=== PATIENT | female | born 2000 | race Caucasian/White ===

== ENCOUNTER 2020-05-08 09:46 | Emergency (ER) | payer OTHER, SELFPAY ==
[2020-05-08 09:57] VITALS: BP 105/68; PULSE 54; RESP 17; TEMP 36.7; O2SAT 100; BMI 22.8
[2020-05-08 10:27] VITALS: BP 109/63; PULSE 50
--- NOTE | 2020-05-08 10:27 | XR_ITS ---
EXAMINATION: RIGHT HAND AND WRIST X-RAY CLINICAL INFORMATION: Fall. Middle finger pain and swelling COMPARISON: None TECHNIQUE: 4 views of the right hand and wrist FINDINGS: Bone alignment is normal. No acute fracture or dislocation is seen. There is a well-corticated ossification adjacent to the ulnar styloid questionable for changes from old trauma versus accessory ossification center. The joint spaces are normal. Soft tissues are normal. XR/XR hand wrist RT IMPRESSION: No acute fracture seen.
--- NOTE | 2020-05-08 10:27 | ECG_ITS ---
Test Reason : ANXIETY Blood Pressure : / mmHG Vent. Rate : 062 BPM Atrial Rate : 062 BPM P-R Int : 130 ms QRS Dur : 084 ms QT Int : 416 ms P-R-T Axes : 064 090 075 degrees QTc Int : 422 ms Sinus rhythm with marked sinus arrhythmia Rightward axis Borderline ECG When compared with ECG of 28-JUN-2019 14:47, more variability in heartrate Referred By: Manuela Cates Electronically Signed By:ORIN CORLEY MD
--- NOTE | 2020-05-08 10:28 | ED_ITS ---
HPI - Extremity Problem General Chief complaint: Anxiety Stated complaint: hand injury Time Seen by Provider: 05/08/20 10:13 Source: patient Mode of arrival: ambulatory History of Present Illness HPI Narrative: 19-year-old female with a past medical history of anxiety presents to ED complaining of right hand / wrist pain S/P witnessed syncopal episode last night. Patient reports increased anxiety / panic attacks, and with panic attacks has syncope about 2x a week. Admits has been dealing with issue this issue x years, but gradually been worsening . Reports has been worked up multiple times in the past, unsure was underlying diagnosis is. Unknown head trauma, +LOC last night. Denies headache, vision changes, neck or back pain, CP/SOB, abdominal pain, nausea/ vomiting, numbness /tingling, incontinence/retention. MD Complaint: extremity pain and extremity swelling Related Data Allergies Allergy/AdvReac Type Severity Reaction Status Date / Time No Known Allergies Allergy Verified 05/08/20 10:00 [No Known Allergies*] Review of Systems Review of Systems: Constitutional: No Weight loss, No Fever, No Chills ENT/Mouth: No Ear Pain, No Nasal Congestion, No sore throat, No Rhinorrhea Eyes: No Eye Pain, No Swelling, No Vision Changes Cardiovascular: No Chest Pain, No SOB, No Dyspnea on Exertion, No Palpitations Respiratory: No Cough, No Sputum, No Dyspnea Gastrointestinal: No Nausea, No Vomiting, No Diarrhea, No Constipation, No Abdominal pain Genitourinary: No irregular bleeding, No Dysuria, No Urinary Frequency, No Hematuria, No Urinary Incontinence/retention Musculoskeletal:+ joint pain, No Myalgias, +Joint Swelling Skin: No Skin Lesions, No rash Neuro: No Weakness, No Numbness, No Paresthesias, + Loss of Consciousness, No Dizziness, No Headache Psych: +Anxiety/Panic, No Depression Yes all other systems are reviewed and are negative Neurologic: Denies Sensory deficit (Neuro) [facility] Past Medical History Attestation statement: The following information was validated with the patient. Medical History (Updated 05/08/20 @ 11:57 by JESSICA Cosby) No known health problems Social History Social History Advance Directives: No Advance Directives Information Provided: No Physical Exam Vital Signs: Vital Signs: Vital Signs Temp Pulse Resp BP Pulse Ox 05/08/20 11:15 67 14 112/75 100 05/08/20 11:14 67 112/75 05/08/20 11:13 59 108/65 05/08/20 10:27 50 109/63 05/08/20 09:57 98.0 F 54 17 105/68 100 Body Mass Index 22.8 Const: General: cooperative and healthy appearing Orientation/consciousness: patient oriented x3 Limitations: no limitations HENMT: Head: Yes normal to inspection Ears: hearing grossly normal bilaterally General nose exam: Normal external nose present Face and sinus: Yes normal facial exam Mouth: Normal oral and palatal mucosa present Throat: Yes uvula midline Eyes: General: appearance normal, both eyes and all related structures Pupils: Equal, round and reactive pupils present EOM: EOMs intact bilaterally Neck: Neck: Yes normal visual inspection and Yes no meningeal signs Resp: Effort & Inspection: normal respiratory effort Cardio: Rate: regular rate Peripheral pulses: Peripheral pulses 2+ throughout GI: Inspection: Yes normal to inspection Palpation (GI): Soft to palpation and nontender Back/Spine/Pelvis: Other: no midline cervical/thoracic/lumbar spinous ttp Skin: Rashes: no rashes Wounds: no wounds Neuro: General: patient oriented x3, gait normal, tone normal, no meningeal signs, no focal motor deficits and CN's II-XI intact bilaterally Cranial nerves: Yes Equal, round and reactive pupils present Gait exam (Neuro): Normal gait present Sensory Exam: No Sensory deficit (Neuro) Extrem: Other: R hand with swelling to dorsal aspect > 3rd digit, +ttp. full flexion to hand/middle finger decreased 2/2 pain/swelling. finger to thumb opposition wnl. wrist with FROM intact. +snuffbox ttp. NV intact General: Yes n ormal to inspection Course Course Course Narrative: -1150-- hand x-ray unremarkable > patient placed in thumb spica splint in the ED for comfort/precautions, is to follow-up with orthopedics Initial EKG with ST elevation in V3, repeat after 5-10 minutes resolved /improved worrisome signs and symptoms of very strict return precautions discussed with patient including close follow-up with PCP. She verbalized understanding feel safe for discharge home MDM - Extremity (Nontraumatic) MDM Narrative Medical decision making narrative: On exam VSS, NAD/ well-appearing, no focal neuro deficits. Swelling / decreased ROM noted to right hand dorsal aspect with +snuffbox tenderness. Concern for arrhythmia/electrolyte abnormalities vs ?panic attacks vs fx. Lower concern for infectious etiology - Citizen [place] head CT rule negative - Discussed with patient would like to move her to main ED for further workup including labs/imaging, EKG, orthostatics, etc >> however patient refusing workup, reports the blood work is always normal , and I do not want to be here all day > would only like her hand evaluated today Plan: EKG/orthostatics if patient agreeable and XR Discharge Plan Discharge Clinical Impression: Hand pain, right, Syncope Patient Disposition: Home, Self-Care Instructions: Syncope (ED), Scaphoid Fracture (ED) Additional Instructions: your x-ray unremarkable today in the ED You need to keep splint on until you follow-up with health informatics specialist in 1 week Call today to make an appointment You may only take off splint to shower You need to have close follow-up with her primary care doctor, her passing out episodes are not normal, need to be further worked up you should also follow-up with a wildland fire fighter specialist If her symptoms persist or worsen, you have multiple passing out episodes, headache, nausea / vomiting, increased or worsening pain in her hand return to the ED immediately Referrals: Sheron Yanes MD [Physician] - 1 week Manjit Pham MD [Physician] - 1 week
--- NOTE | 2020-05-08 10:31 | PC.NURSE ---
PT REFUSING BLOOD WORK AT THIS TIME. PT WAS GOING TO BE MOVED TO MAIN ED. PT REFUSING. AGREEING TO EKG.
--- NOTE | 2020-05-08 11:02 | ECG_ITS ---
Test Reason : ABDNORMAL EKG,REPEAT Blood Pressure : / mmHG Vent. Rate : 061 BPM Atrial Rate : 061 BPM P-R Int : 118 ms QRS Dur : 084 ms QT Int : 398 ms P-R-T Axes : 046 088 065 degrees QTc Int : 400 ms Normal sinus rhythm with sinus arrhythmia Normal ECG When compared with ECG of 08-MAY-2020 10:34, No significant change was found Referred By: Manuela Cates Electronically Signed By:ORIN CORLEY MD
[2020-05-08 11:13] VITALS: BP 108/65; PULSE 59
[2020-05-08 11:14] VITALS: BP 112/75; PULSE 67
[2020-05-08 11:15] VITALS: BP 112/75; PULSE 67; RESP 14; O2SAT 100
== END 2020-05-08 12:05 | disposition home or self-care (01) ==
PROVIDERS: Emergency Provider Emergency Medicine
DX: M79.641 Pain in right hand (principal); R55 Syncope and collapse; F41.0 Panic disorder [episodic paroxysmal anxiety]; F41.1 Generalized anxiety disorder; Z79.899 Other long term (current) drug therapy
CPT/HCPCS: 73110; 73130; 93005; 99283

== ENCOUNTER 2020-05-15 09:40 | Emergency (ER) | payer OTHER, SELFPAY ==
[2020-05-15 09:53] VITALS: BP 103/78; PULSE 90; RESP 16; TEMP 36.2; O2SAT 100; BMI 21.1
--- NOTE | 2020-05-15 10:01 | ED.GENADULT ---
HPI - General Adult General Chief complaint: General Medical Stated complaint: FLU SYMPTONS Time Seen by Provider: 05/15/20 09:46 Source: patient Mode of arrival: ambulatory Limitations: no limitations History of Present Illness HPI narrative: 19 y/o healthy female presenting with sore throat, chills, malaise and generally feeling unwell for 1 week. She states her sore throat is her biggest complaint. It hurts to swallow but she has been able to tolerate PO. She has been taking OTC cold and flu medications with brief improvement. She has no known exposure to COVID-19. She denies SOB or chest pain. Onset (ago): day(s) (7) Location: mouth Radiation: non-radiation Severity: moderate Severity scale (1-10): 7 Quality: aching and constant Pain Consistency: constant Relieving factors: medication Exacerbating factors: eating Associated symptoms: fever/chills, loss of appetite and malaise Treatments prior to arrival: none Related Data Previous Rx's Medication Instructions Recorded amoxicillin 500 mg PO BID #20 tab 05/15/20 Allergies Allergy/AdvReac Type Severity Reaction Status Date / Time No Known Allergies Allergy Verified 05/08/20 10:00 [No Known Allergies*] Review of Systems Review of Systems: Constitutional: + subjective Fever, + Chills ENT/Mouth: + sore throat, + Rhinorrhea, No Swallowing Difficulty, +painful swallowing Eyes: No Eye Pain, No Swelling, No Redness Cardiovascular: No Chest Pain, No SOB, No Orthopnea, No Edema Respiratory: No Cough, No Sputum, No Wheezing, No dyspnea Gastrointestinal: No Nausea, No Vomiting, No Diarrhea, No abdominal Pain, No Hematochezia, No Melena Genitourinary: No Dysuria, No Urinary Frequency, No Hematuria Musculoskeletal: No joint pain, + Myalgias Skin: No Skin Lesions, No rash Neuro: No Weakness, No Numbness, No Dizziness, No Headache Psych: No Anxiety/Panic, No Depression Heme/Lymph: No Bruising, No Lymphadenopathy Endocrine: No Polyuria, No Polydipsia PMFSH Past Medical History Attestation statement: The following information was validated with the patient. Medical History No known health problems Social History Social History Advance Directives: No Advance Directives Information Provided: No Physical Exam Vital Signs: Vital Signs: Vital Signs Temp Pulse Resp BP Pulse Ox 05/15/20 09:53 97.2 F 90 16 103/78 100 Body Mass Index 21.1 Appearance: Alert. Oriented X3. No acute distress. Eyes: Pupils equal, round and reactive to light. ENT: bilateral tonsilar swelling and erythema without exudates, no tonsilar abscess Neck: Normal inspection. Neck supple. CVS: Normal heart rate and rhythm. Pulses normal. Respiratory: No respiratory distress. Breath sounds normal. Abdomen: Soft and nontender. +BS x4 Skin: Skin warm and dry. Normal skin color. Normal skin turgor. No rashes. Extremities: No lower extremity edema. Neuro: Oriented X 3. No motor deficit. No sensory deficit. Course Course Course Narrative: exam consistent with Strep throat - will empirically treat with ABX. will also test for COVID given her other symptoms. She is non-toxic appearing with normal vital signs. Medical Decision Making Differential Diagnosis Differential Diagnosis: viral syndrome, viral pharyngitis, bacterial pharyngitis, COVID-19 Critical Care Time Critical Care Time Critical Care Time: No Discharge Plan Discharge Clinical Impression: Pharyngitis Qualifiers: Pharyngitis/tonsillitis etiology: unspecified etiology Qualified Code(s): J02.9 - Acute pharyngitis, unspecified Patient Disposition: Home, Self-Care Instructions: Strep Throat (ED) Additional Instructions: You were tested for Strep throat and for COVID-19 today. We will call you with the COVID test results in 2-4 days. Given your exam findings, we are treating you for Strep throat with antibiotics. Use warm salt water gargles several times per day to help with sore throat. Take tylenol and/or ibuprofen for sore throat. Continue taking over the counter cold and flu medications as needed. If your symptoms worsen call your doctor or come back to the ER for evaluation. Prescriptions: New amoxicillin 500 mg tablet 500 mg PO BID Qty: 20 RF: 0 Stand Alone Forms: Work/School Release
== END 2020-05-15 10:30 | disposition home or self-care (01) ==
PROVIDERS: Physician Assistant; Emergency Provider Emergency Medicine
DX: J02.9 Acute pharyngitis, unspecified (principal); M79.10 Myalgia, unspecified site; Z20.828 Contact with and (suspected) exposure to other viral communicable diseases
CPT/HCPCS: 87880; 99283; U0003

== ENCOUNTER 2020-05-21 06:16 | Emergency (ER) | payer OTHER, SELFPAY ==
[2020-05-21 06:24] VITALS: BP 112/82; PULSE 61; RESP 16; TEMP 36.7; O2SAT 99; BMI 21.4
--- NOTE | 2020-05-21 06:49 | ED_ITS ---
HPI - Abdominal Pain General Chief Complaint: General Medical Stated Complaint: epigastric pain Time Seen by Provider: 05/21/20 06:48 Source: patient Mode of arrival: ambulatory Limitations: no limitations History of Present Illness MD elicited complaint: abdominal pain Pertinent past history: gastritis Onset (ago): day(s) (last night) Pain Consistency: constant Location: epigastric Severity: similar to previous episodes Quality: burning Radiation: epigastric Migration to: no migration Exacerbating factors: other (drank ETOH which always triggers her) Relieving factors: nothing Context: history of similar episodes Associated symptoms: nausea and vomiting Related Data Previous Rx's Medication Instructions Recorded amoxicillin 500 mg PO BID #20 tab 05/15/20 ondansetron 4 mg PO Q8H PRN #20 tab 05/21/20 Allergies Allergy/AdvReac Type Severity Reaction Status Date / Time No Known Allergies Allergy Verified 05/08/20 10:00 [No Known Allergies*] Review of Systems Review of Systems Constitutional : No Weight loss, No Fever, No Chills ENT/Mouth : No sore throat, No Rhinorrhea Eyes: No Swelling, No Redness Cardiovascular : No Chest Pain, No SOB, NoEdema Respiratory : No Cough, No Sputum, No Wheezing Gastrointestinal : Positive Nausea, Positive Vomiting, no Diarrhea, positive abdominal Pain, No Hematochezia, No Melena Genitourinary : No Dysuria, No Urinary Frequency, No Hematuria, No Urgency Musculoskeletal : No joint pain, No Myalgias, No Joint Swelling Skin : No Skin Lesions, No rash Neuro : No Weakness, No Numbness, No Dizziness, No Headache Psych : No Anxiety/Panic, No Depression Heme/Lymph: No Bruising, No Lymphadenopathy Endocrine : No Polyuria, No Polydipsia All other systems reviewed and are negative. Physical Exam Vital Signs: Vital Signs: Last Vital Signs Temp 97.8 F 05/21/20 07:30 Pulse 52 05/21/20 07:30 Resp 16 05/21/20 07:30 BP 105/61 05/21/20 07:30 Pulse Ox 98 05/21/20 07:30 Body Mass Index 21.4 Appearance: Alert. Oriented X3. No acute distress. Eyes: Pupils equal, round and reactive to light. ENT: Pharynx normal. Neck: Normal inspection. Neck supple. CVS: Normal heart rate and rhythm. Pulses normal. Respiratory: No respiratory distress. Breath sounds normal. Abdomen: Soft and mild epigastric ttp Skin: Skin warm and dry. Normal skin color. Normal skin turgor. Extremities: No lower extremity edema. No calf ttp Neuro: Oriented X 3. No motor deficit. No sensory deficit. Course Course Course Narrative: patient up and dressed, wants to leave and go home MDM - Abdominal Pain MDM Narrative Medical decision making narrative: 19 yo female with hx of GERD always triggered by ETOH - drank before this episode, c/o vomiting will need labs, IVF, treatment and anticipate DC home Lab Data Result diagrams: 05/21/20 07:25 05/21/20 07:25 Labs: Lab Results 05/21/20 05/21/20 Range/Units 07:25 07:25 WBC 12.1 H (4.8-10.8) X10*3/uL RBC 4.44 (4.20-5.50) X10*6/uL Hgb 13.0 (12.0-16.0) g/dl Hct 38.4 (37-47) % MCV 86.5 (80-98) fL MCH 29.3 (27.0-33.0) pg MCHC 33.9 (31.0-35.0) g/dl RDW 12.8 (11.0-16.0) % Plt Count 331 (160-400) X10*3/uL MPV 10.3 (9.4-12.3) fL Immature Gran % (Auto) 0.2 (0.0-0.4) % Neut % (Auto) 63.7 (45-73) % Lymph % (Auto) 30.6 (20-40) % Mora % (Auto) 4.9 (2-11) % Eos % (Auto) 0.2 (0-4) % Baso % (Auto) 0.4 (0-2) % Lymph # (Auto) 3.7 (1.2-4.9) X10*3/uL [place] # (Auto) 0.6 (0.1-1.2) X10*3/uL Eos # (Auto) 0.0 (0.0-0.4) X10*3/uL Baso # (Auto) 0.1 (0.0-0.2) X10*3/uL Abs Immat Gran (auto) 0.03 (0.00-0.03) X10*3/uL Absolute Neuts (auto) 7.7 (2.0-8.3) X10*3/uL Absolute Nucleated RBC 0.000 (0.0-0.012) X10*3/uL Nucleated RBC % (auto) 0.0 (0.0-0.2) /100WBC Sodium 141 (135-145) mmol/L Potassium 4.2 (3.3-5.1) mmol/l Chloride 105 (96-108) mmol/L Carbon Dioxide 27 (22-29) mmol/L Anion Gap 13 (12-20) BUN 9 (9-16) mg/dL Creatinine 0.72 (0.5-1.4) mg/dL Estim Creat Clear Calc 113.1 Estimated GFR > 60 Random Glucose 96 (60-115) mg/dL Calcium 9.2 (8.4-10.2) mg/dL Magnesium 2.0 (1.6-2.6) mg/dL Total Bilirubin 0.3 (0.0-1.0) mg/dL Direct Bilirubin 0.2 (0.0-0.5) mg/dL AST 16 (5-31) U/L ALT 16 (0-31) U/L Alkaline Phosphatase 69 (39-117) U/L Total Protein 7.2 (6.5-8.0) g/dL Albumin 4.4 (3.5-5.0) g/dL Lipase 24 (8-78) U/L Discharge Plan Discharge Clinical Impression: Gastritis Qualifiers: Gastritis type: alcoholic Chronicity: acute Gastritis bleeding: without bleeding Qualified Code(s): K29.20 - Alcoholic gastritis without bleeding Patient Disposition: Home, Self-Care Instructions: Gastritis (ED) Additional Instructions: return to ED for any worsening symptoms or concerns Prescriptions: New ondansetron 4 mg tablet,disintegrating 4 mg PO Q8H PRN (Reason: nausea and vomiting) Qty: 20 RF: 0 No Action amoxicillin 500 mg tablet 500 mg PO BID Qty: 20 RF: 0 Stand Alone Forms: Work/School Release [facility] Past Medical History Medical History (Updated 05/21/20 @ 07:05 by Gali Veronica DO) Asthma GERD (gastroesophageal reflux disease) No known health problems Surgical History (Updated 05/21/20 @ 07:03 by Gali Veronica DO) Hx of cholecystectomy Social History Social History (Updated 05/21/20 @ 07:04 by Gali Veronica DO) Alcohol intake: current Alcohol intake frequency: a few times a week Smoking Status: Current some day smoker Use of substances other than those prescribed or required for medical reasons: Unknown Advance Directives: Yes Advance Directives Information Provided: Yes Advance Directives on File: No
[2020-05-21 07:30] VITALS: BP 105/61; PULSE 52; RESP 16; TEMP 36.6; O2SAT 98
[2020-05-21] MEDS: ondansetron HCL 4 MG/2 ML VIAL IVPUSH (07:30)
[2020-05-21] MEDS: Famotidine/PF 20 MG/2 ML VIAL IVPUSH (07:30)
[2020-05-21] MEDS: 0.9 % Sodium Chloride 1,000 ML 999 ML IVCONT (07:30)
[2020-05-21 07:32] LABS: MANUAL DIFF FLAG NO
[2020-05-21 07:36] LABS: Basophils Absolute Auto 0.1 X10*3/uL (0.0-0.2); Basophils Percent Auto 0.4 % (0-2); Eosinophils Percent Auto 0.2 % (0-4); Hematocrit 38.4 % (37-47); Imm Gran Abs Auto 0.03 X10*3/uL (0.00-0.03); Imm Gran Pct Auto 0.2 % (0.0-0.4); Lymphocytes Absolute Auto 3.7 X10*3/uL (1.2-4.9); Lymphocytes Percent Auto 30.6 % (20-40); Mean Corpuscular HGB Conc 33.9 g/dl (31.0-35.0); Mean Corpuscular Hemoglobin 29.3 pg (27.0-33.0); Mean Corpuscular Volume 86.5 fL (80-98); Mean Platelet Volume 10.3 fL (9.4-12.3); Monocytes Absolute Auto 0.6 X10*3/uL (0.1-1.2); Monocytes Percent Auto 4.9 % (2-11); Neutrophils Absolute Auto 7.7 X10*3/uL (2.0-8.3); Neutrophils Percent Auto 63.7 % (45-73); Platelet Count 331 X10*3/uL (160-400); Red Blood Count 4.44 X10*6/uL (4.20-5.50); Red Cell Distribution Width 12.8 % (11.0-16.0); White Blood Count 12.1 X10*3/uL (4.8-10.8)
[2020-05-21 07:58] LABS: Alanine Aminotransferase 16 U/L (0-31); Albumin Level 4.4 g/dL (3.5-5.0); Alkaline Phosphatase 69 U/L (39-117); Anion Gap 13 (12-20); Aspartate Amino Transferase 16 U/L (5-31); Bilirubin Direct 0.2 mg/dL (0.0-0.5); Bilirubin Total 0.3 mg/dL (0.0-1.0); Blood Urea Nitrogen 9 mg/dL (9-16); Calcium 9.2 mg/dL (8.4-10.2); Carbon Dioxide 27 mmol/L (22-29); Chloride 105 mmol/L (96-108); Creatinine Clr Calc Pharmacy 113.1; Estimated Glomerular Filt Rate > 60; Glucose Random 96 mg/dL (60-115); Lipase 24 U/L (8-78); Potassium 4.2 mmol/l (3.3-5.1); Sodium 141 mmol/L (135-145); Total Protein 7.2 g/dL (6.5-8.0)
[2020-05-21] MEDS: Ketorolac Tromethamine 30 MG/ML VIAL IVPUSH (08:29)
== END 2020-05-21 08:54 | disposition home or self-care (01) ==
PROVIDERS: Emergency Provider Emergency Medicine
DX: K29.20 Alcoholic gastritis without bleeding (principal); R10.13 Epigastric pain; F17.200 Nicotine dependence, unspecified, uncomplicated; Z71.6 Tobacco abuse counseling; Z79.899 Other long term (current) drug therapy
CPT/HCPCS: 36415; 80048; 80076; 83690; 83735; 85025; 96361; 96374; 96375; 99284; J1885; J2405

== ENCOUNTER 2020-05-26 11:15 | Emergency (ER) | payer OTHER, SELFPAY ==
[2020-05-26 11:38] VITALS: BP 104/70; PULSE 70; RESP 20; TEMP 37.2; O2SAT 99; BMI 47.3
--- NOTE | 2020-05-26 12:22 | ED_ITS ---
HPI - Female Genitourinary General Chief complaint: Urogenital-Female Stated complaint: UTI Time Seen by Provider: 05/26/20 12:12 Source: patient Mode of arrival: ambulatory History of Present Illness HPI Narrative: 19-year-old female with a PMH STI's, asthma, GERD presented to ED complaining of vaginal odor x1 week, and concern for STI due to unfaithful boyfriend. Admits to similar symptoms in the past. Denies vaginal discharge, lesions, dysuria/hematuria, flank pain, abdominal pain, nausea/vomiting. Admits to being sexually active with 1 partner, however partner sexually active with multiple people. Admits started spotting today, is at the end of her menstruation MD elicited complaint: possible STD Related Data Previous Rx's Medication Instructions Recorded amoxicillin 500 mg PO BID #20 tab 05/15/20 ondansetron 4 mg PO Q8H PRN #20 tab 05/21/20 Allergies Allergy/AdvReac Type Severity Reaction Status Date / Time No Known Allergies Allergy Verified 05/08/20 10:00 [No Known Allergies*] Review of Systems Review of Systems: Constitutional: No Weight loss, No Fever, No Chills Cardiovascular: No Chest Pain, No SOB Respiratory: No Cough, No Sputum, No Wheezing Gastrointestinal: No Nausea, No Vomiting, No Diarrhea, No Constipation, No Abdominal pain Genitourinary: No Dysuria, No Urinary Frequency, No Hematuria, No Flank Pain, +vaginal odor Skin: No Skin Lesions, No rash Yes all other systems are reviewed and are negative PMFSH Past Medical History Attestation statement: The following information was validated with the patient. Medical History (Updated 05/26/20 @ 12:54 by JESSICA Cosby) Asthma GERD (gastroesophageal reflux disease) No known health problems Surgical History Hx of cholecystectomy Social History Social History (Updated 05/21/20 @ 07:04 by Gali Veronica DO) Alcohol intake: unknown Smoking Status: Unknown if ever smoked Use of substances other than those prescribed or required for medical reasons: Unknown Advance Directives: No Advance Directives Information Provided: Yes Physical Exam Vital Signs: Vital Signs: Last Vital Signs Temp 98.9 F 05/26/20 11:38 Pulse 70 05/26/20 11:38 Resp 20 05/26/20 11:38 BP 104/70 05/26/20 11:38 Pulse Ox 99 05/26/20 11:38 Body Mass Index 47.3 Const: General: cooperative and healthy appearing Orientation/consciousness: patient oriented x3 Limitations: no limitations HENMT: Head: Yes normal to inspection Ears: hearing grossly normal bilaterally General nose exam: Normal external nose present Face and sinus: Yes normal facial exam Eyes: General: appearance normal, both eyes and all related structures EOM: EOMs intact bilaterally Neck: Neck: Yes normal visual inspection Resp: Effort & Inspection: normal respiratory effort GI: Inspection: Yes normal to inspection Palpation (GI): Soft to palpation, nontender, no guarding and not rigid : General: Yes no CVA tenderness Speculum Exam - Vagina: normal vaginal discharge, no lesions, vaginal bleeding (slight) and no masses Speculum Exam - Cervix: normal appearance of the cervix, nontender and Other cervical findings present (Cervix friable) Bimanual exam- vagina & uterus: normal bimanual exam and No Cervical tenderness present Bimanual Exam- Adnexa, other: normal adnexae OB/external & speculum: vaginal bleeding (slight) Back/Spine/Pelvis: Back: no CVA tenderness Skin: Rashes: no rashes Wounds: no wounds Neuro: General: patient oriented x3 Gait exam (Neuro): Normal gait present Extrem: General: Yes normal to inspection Course Course Course Narrative: -UA with blood, not infected. Urine negative MDM - Female Genitourinary MDM Narrative Medical decision making narrative: On exam VSS, NAD/well-appearing, abdomen soft/nontender, no CVAT. On pelvic slight vaginal bleeding noted, no discharge, cervix is friable, no lesions, no CMT or no adnexal tenderness. Exam not consistent with PID. Concern for STI, rule out UTI. Low concern for TOA, ovarian torsion/cyst, PID, pyelo or other intra-abdominal pathology Plan: UA, STI Patient agreeable to treatment with Azithromycin and Rocephin in the ED Lab Data Labs: Lab Results 05/26/20 05/26/20 Range/Units 12:51 12:51 Urine Color YELLOW Urine Appearance CLOUDY Urine pH 7.0 (5.0-8.0) Ur Specific [place] 1.025 (1.005-1.025) Urine Protein NEG (NEG-TRACE) MG/DL Urine Glucose (UA) NEG (NEG) MG/DL Urine Ketones NEG (NEG) MG/DL Urine Blood 3+ H (NEG) Urine Nitrite NEG (NEG) Ur Leukocyte Esterase NEG (NEG) Urine RBC 5-9 H (0) /HPF Urine WBC 0 (0-4) /HPF Ur Squamous Epith Cells 3+ /LPF Urine Bacteria 3+ /LPF Urine Test NEGATIVE (NEGATIVE) Discharge Plan Discharge Clinical Impression: Vaginal odor, STI (sexually transmitted infection) Patient Disposition: Home, Self-Care Instructions: Sexually Transmitted Diseases (ED) Additional Instructions: You were tested for sexually transmitted infections today in the ED You are already treated for gonorrhea and chlamydia Your results for the other culture should be back in 2-3 days, you will get a phone call if 1 is positive. 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
[2020-05-26] MEDS: Azithromycin 500 MG TABLET 1000 MG PO (12:30)
[2020-05-26] MEDS: cefTRIAXone sodium 250 MG, Lidocaine HCl 1 % MPF 0.9 ML IM (12:30)
--- NOTE | 2020-05-26 12:56 | PC.NURSE ---
this rn present for pelvic exam. pt tolerated well. samples sent.
[2020-05-26 13:00] LABS: Glucose Urine UA NEG (NEG); Leukocyte Esterase Urine NEG (NEG); Nitrite Urine NEG (NEG); Specific Gravity - Urine 1.025 (1.005-1.025); Urine Blood 3+ (NEG); Urine Ketones NEG (NEG); Urine Protein NEG (NEG-TRACE)
[2020-05-26 13:02] LABS: Appearance Urine CLOUDY; Color Urine YELLOW
[2020-05-26 13:20] LABS: Bacteria Urine 3+ /LPF; Squamous Epithelial Cell Urine 3+ /LPF; WBC Urine 0 /HPF (0-4)
[2020-05-26 13:23] LABS: UPreg QC Valid YES
[2020-05-26 13:24] LABS: Urine Pregnancy NEGATIVE (NEGATIVE)
[2020-05-26 15:09] LABS: CT PCR NOT DETECTED (Not Detect.); NG PCR NOT DETECTED (Not Detect.)
[2020-05-27 12:00] LABS: BV Int Neg Control Negative (Negative); BV Int Pos Control Positive (Positive)
== END 2020-05-26 13:59 | disposition home or self-care (01) ==
PROVIDERS: Physician Assistant; Emergency Provider Emergency Medicine
DX: N39.0 Urinary tract infection, site not specified (principal); Z20.2 Contact with and (suspected) exposure to infections with a predominantly sexual mode of transmission
CPT/HCPCS: 81001; 81003; 81025; 87480; 87491; 87510; 87591; 87660; 96372; 99284; J0696

== ENCOUNTER 2020-08-01 02:09 | Emergency (ER) | payer OTHER, MEDICAID, SELFPAY ==
[2020-08-01 02:21] VITALS: BP 117/70; PULSE 87; RESP 16; TEMP 36.7; O2SAT 99; BMI 21.6
--- NOTE | 2020-08-01 03:25 | PC.NURSE ---
LABS OBTAINED. PATIENT REQUESTS TO HAVE THE MEDS SHE USUALLY GETS THROUGH IV. I WILL JUST PUKE UP ANYTHING I DRINK. WILL UPDATE DR DWYER.
[2020-08-01 03:26] LABS: MANUAL DIFF FLAG NO
[2020-08-01 03:27] LABS: Basophils Percent Auto 0.4 % (0-2); Eosinophils Percent Auto 0.3 % (0-4); Hematocrit 39.2 % (37-47); Hemoglobin 13.1 g/dl (12.0-16.0); Imm Gran Abs Auto 0.02 X10*3/uL (0.00-0.03); Imm Gran Pct Auto 0.2 % (0.0-0.4); Lymphocytes Percent Auto 42.5 % (20-40); Mean Corpuscular HGB Conc 33.4 g/dl (31.0-35.0); Mean Corpuscular Hemoglobin 28.7 pg (27.0-33.0); Mean Corpuscular Volume 85.8 fL (80-98); Mean Platelet Volume 10.9 fL (9.4-12.3); Monocytes Absolute Auto 0.4 X10*3/uL (0.1-1.2); Monocytes Percent Auto 4.6 % (2-11); Neutrophils Absolute Auto 4.8 X10*3/uL (2.0-8.3); Platelet Count 248 X10*3/uL (160-400); Red Blood Count 4.57 X10*6/uL (4.20-5.50); Red Cell Distribution Width 12.4 % (11.0-16.0); White Blood Count 9.3 X10*3/uL (4.8-10.8)
--- NOTE | 2020-08-01 03:38 | ED.ABDPAIN ---
HPI - Abdominal Pain General Chief Complaint: Abdominal Pain Stated Complaint: Acid Reflux Time Seen by Provider: 08/01/20 02:52 Source: patient Mode of arrival: ambulatory History of Present Illness HPI narrative: This is a 20-year-old female who presents after having consumed alcohol approximately 3 hours ago and subsequently developed gastritis which she states is typical for her and is associated with some mild nausea and vomiting but denies any fevers, chills, abdominal pain, diarrhea, urinary pain/burning/frequency. She denies any blood in the vomitus Related Data Previous Rx's Medication Instructions Recorded amoxicillin 500 mg PO BID #20 tab 05/15/20 ondansetron 4 mg PO Q8H PRN #20 tab 05/21/20 Allergies Allergy/AdvReac Type Severity Reaction Status Date / Time No Known Allergies Allergy Verified 08/01/20 02:20 [No Known Allergies*] Review of Systems Review of Systems Pertinent positives and negatives as stated in HPI 10 point review systems is otherwise negative. Physical Exam Vital Signs: Vital Signs: Last Vital Signs Temp 98.1 F 08/01/20 02:21 Pulse 76 08/01/20 03:56 Resp 16 08/01/20 03:56 BP 110/66 08/01/20 03:56 Pulse Ox 100 08/01/20 03:56 Body Mass Index 21.6 VITAL SIGNS: Reviewed. GENERAL: Well developed, well nourished, in no acute distress. NOSE: Nares patent bilateral OROPHARYNX: no oral lesions noted, posterior pharynx clear NECK: Supple, no adenopathy LUNGS: Normal breath sounds. No adventitious sounds or accessory muscle use. SpO2<100> CARDIOVASCULAR: Regular rate and rhythm without noted murmurs, no JVD or lower extremity edema. ABDOMEN: Soft, non-tender, non-distended with bowel sounds. NEUROLOGIC: Alert and oriented x 4. Course Course Course Narrative: This is a 20-year-old female with history and clinical presentation consistent with alcoholic gastritis and will be treated with IV fluids, Pepcid, Zofran and on review of all investigations there is no evidence to suggest gallbladder or pancreatic etiologies. In addition, patient's urinalysis and urine are negative. On re-evaluation patient has had complete resolution of her symptoms and was discharged in stable condition. MDM - Abdominal Pain Lab Data Result diagrams: 08/01/20 03:18 08/01/20 03:18 Labs: Lab Results 08/01/20 08/01/20 08/01/20 Range/Units 03:18 03:18 03:56 WBC 9.3 (4.8-10.8) X10*3/uL RBC 4.57 (4.20-5.50) X10*6/uL Hgb 13.1 (12.0-16.0) g/dl Hct 39.2 (37-47) % MCV 85.8 (80-98) fL MCH 28.7 (27.0-33.0) pg MCHC 33.4 (31.0-35.0) g/dl RDW 12.4 (11.0-16.0) % Plt Count 248 D (160-400) X10*3/uL MPV 10.9 (9.4-12.3) fL Immature Gran % (Auto) 0.2 (0.0-0.4) % Neut % (Auto) 52.0 (45-73) % Lymph % (Auto) 42.5 H (20-40) % [place] % (Auto) 4.6 (2-11) % Eos % (Auto) 0.3 (0-4) % Baso % (Auto) 0.4 (0-2) % Lymph # (Auto) 4.0 (1.2-4.9) X10*3/uL [place] # (Auto) 0.4 (0.1-1.2) X10*3/uL Eos # (Auto) 0.0 (0.0-0.4) X10*3/uL Baso # (Auto) 0.0 (0.0-0.2) X10*3/uL Abs Immat Gran (auto) 0.02 (0.00-0.03) X10*3/uL Absolute Neuts (auto) 4.8 (2.0-8.3) X10*3/uL Absolute Nucleated RBC 0.000 (0.0-0.012) X10*3/uL Nucleated RBC % (auto) 0.0 (0.0-0.2) /100WBC Sodium 142 (135-145) mmol/L Potassium 3.5 (3.3-5.1) mmol/l Chloride 106 (96-108) mmol/L Carbon Dioxide 27 (22-29) mmol/L Anion Gap 13 (12-20) BUN 7 L (9-16) mg/dL Creatinine 0.69 (0.5-1.4) mg/dL Estim Creat Clear Calc 117.0 Estimated GFR > 60 Random Glucose 109 (60-115) mg/dL Calcium 9.5 (8.4-10.2) mg/dL Total Bilirubin 0.2 (0.0-1.0) mg/dL AST 19 (5-31) U/L ALT 20 (0-31) U/L Alkaline Phosphatase 60 (39-117) U/L Total Protein 7.2 (6.5-8.0) g/dL Albumin 4.5 (3.5-5.0) g/dL Lipase 59 (8-78) U/L Urine Color STRAW Urine Appearance CLEAR Urine pH 6.5 (5.0-8.0) Ur Specific [place] 1.010 (1.005-1.025) Urine Protein NEG (NEG-TRACE) MG/DL Urine Glucose (UA) NEG (NEG) MG/DL Urine Ketones NEG (NEG) MG/DL Urine Blood NEG (NEG) Urine Nitrite NEG (NEG) Ur Leukocyte Esterase NEG (NEG) Urine Test NEGATIVE (NEGATIVE) Discharge Plan Discharge Clinical Impression: Gastritis Qualifiers: Gastritis type: alcoholic Chronicity: acute Gastritis bleeding: without bleeding Qualified Code(s): K29.20 - Alcoholic gastritis without bleeding Patient Disposition: Home, Self-Care Instructions: Gastritis (ED), Diet for Stomach Ulcers and Gastritis (ED) Additional Instructions: Please resume all home medications as prescribed. Do not hesitate to return to this emergency department should she develop any acute worsening of her symptoms. Prescriptions: No Action amoxicillin 500 mg tablet 500 mg PO BID Qty: 20 RF: 0 ondansetron 4 mg tablet,disintegrating 4 mg PO Q8H PRN (Reason: nausea and vomiting) Qty: 20 RF: 0 Referrals: Physician,Unknown [Primary Care Provider] - 2 days PMF Past Medical History Source: nursing notes reviewed Medical History Asthma GERD (gastroesophageal reflux disease) No known health problems Surgical History Hx of cholecystectomy Social History Social History Alcohol intake: unknown Smoking Status: Unknown if ever smoked Advance Directives: No
[2020-08-01] MEDS: Famotidine/PF 20 MG/2 ML VIAL IVPUSH (03:46)
[2020-08-01] MEDS: 0.9 % Sodium Chloride 1,000 ML 999 ML IV (03:46)
[2020-08-01] MEDS: ondansetron HCL 4 MG/2 ML VIAL IVPUSH (03:46)
[2020-08-01 03:50] LABS: Alanine Aminotransferase 20 U/L (0-31); Albumin Level 4.5 g/dL (3.5-5.0); Alkaline Phosphatase 60 U/L (39-117); Anion Gap 13 (12-20); Aspartate Amino Transferase 19 U/L (5-31); Bilirubin Total 0.2 mg/dL (0.0-1.0); Blood Urea Nitrogen 7 mg/dL (9-16); Calcium 9.5 mg/dL (8.4-10.2); Carbon Dioxide 27 mmol/L (22-29); Chloride 106 mmol/L (96-108); Estimated Glomerular Filt Rate > 60; Glucose Random 109 mg/dL (60-115); Lipase 59 U/L (8-78); Potassium 3.5 mmol/l (3.3-5.1); Sodium 142 mmol/L (135-145); Total Protein 7.2 g/dL (6.5-8.0)
[2020-08-01 03:56] VITALS: BP 110/66; PULSE 76; RESP 16; O2SAT 100
[2020-08-01 04:04] LABS: Appearance Urine CLEAR; Color Urine STRAW; Glucose Urine UA NEG (NEG); Leukocyte Esterase Urine NEG (NEG); Nitrite Urine NEG (NEG); PH 6.5 (5.0-8.0); UACC Culture Trigger NO; Urine Blood NEG (NEG); Urine Ketones NEG (NEG); Urine Protein NEG (NEG-TRACE)
[2020-08-01 04:05] LABS: UPreg QC Valid YES; Urine Pregnancy NEGATIVE (NEGATIVE)
--- NOTE | 2020-08-01 05:14 | PC.NURSE ---
REPORTS SOME PAIN IMPROVEMENT. PO CHALLENGE STARTED.
== END 2020-08-01 05:45 | disposition home or self-care (01) ==
PROVIDERS: Emergency Provider Student in an Organized Health Care Education/Training Program
DX: K29.20 Alcoholic gastritis without bleeding (principal); Z79.899 Other long term (current) drug therapy
CPT/HCPCS: 36415; 80053; 81003; 81025; 83690; 85025; 96361; 96374; 96375; 99284; J2405

== ENCOUNTER 2020-08-04 12:23 | Emergency (ER) | payer OTHER, MEDICAID, SELFPAY ==
[2020-08-04 12:58] VITALS: BP 109/71; PULSE 76; RESP 18; TEMP 36.1; O2SAT 99; BMI 20.7
[2020-08-04 13:22] LABS: Glucose Urine UA NEG (NEG); Leukocyte Esterase Urine NEG (NEG); Nitrite Urine NEG (NEG); PH 6.5 (5.0-8.0); Urine Blood NEG (NEG); Urine Ketones NEG (NEG); Urine Protein NEG (NEG-TRACE)
[2020-08-04 13:24] LABS: Appearance Urine CLEAR; Color Urine YELLOW; UPreg QC Valid YES; Urine Pregnancy NEGATIVE (NEGATIVE)
--- NOTE | 2020-08-04 14:01 | ED_ITS ---
HPI - Female Genitourinary General Chief complaint: Urogenital-Female Stated complaint: ?UTI Time Seen by Provider: 08/04/20 13:04 Source: patient Mode of arrival: ambulatory Limitations: no limitations History of Present Illness HPI Narrative: 20-year-old female presenting to the ED with complaints of ?I think I have a UTI. She reports she has noticed some vaginal discharge that is nonodorous over the past 2 days and itchiness to her vaginal area and she feels like her vaginal area is also swollen although not visibly swollen. Reports that she has been sexually active with 1 male partner over the past 3 years although he occasionally cheat on her therefore is requesting to be tested for STDs. Reports she does not want to be treated for any STDs at this time. Denies any other symptoms complaints or concerns at this time. Related Data Previous Rx's Medication Instructions Recorded amoxicillin 500 mg PO BID #20 tab 05/15/20 ondansetron 4 mg PO Q8H PRN #20 tab 05/21/20 fluconazole [Diflucan] 150 mg PO Q3D #2 tab 08/04/20 metronidazole [Flagyl] 500 mg PO BID 7 Days #14 tab 08/04/20 Allergies Allergy/AdvReac Type Severity Reaction Status Date / Time No Known Allergies Allergy Verified 08/01/20 02:20 [No Known Allergies*] Review of Systems Review of Systems: Constitutional : No Fever, No Chills ENT/Mouth : No sore throat, No Rhinorrhea Eyes: No Eye Pain, No Redness Cardiovascular : No Chest Pain, No SOB Respiratory : No Cough, No Sputum, No Wheezing Gastrointestinal : No Nausea, No Vomiting, No Diarrhea, positive abdominal pain, Genitourinary : + Dysuria, + Vaginal discharge, No Urinary Frequency, No pelvic pain, No irregular bleeding, Musculoskeletal : No Myalgias Skin : No rash Neuro : No Weakness, No Headache Psych : No Anxiety/Panic, No Depression Heme/Lymph: No bruising, No Lymphadenopathy Endocrine : No Polyuria, No Polydipsia Yes all other systems are reviewed and are negative [facility] Past Medical History Attestation statement: The following information was validated with the patient. Medical History Asthma GERD (gastroesophageal reflux disease) No known health problems Surgical History Hx of cholecystectomy Social History Social History Alcohol intake: unknown Smoking Status: Unknown if ever smoked Advance Directives: No Advance Directives Information Provided: No Physical Exam Vital Signs: Vital Signs: Last Vital Signs Temp 97.0 F 08/04/20 12:58 Pulse 76 08/04/20 12:58 Resp 18 08/04/20 12:58 BP 109/71 08/04/20 12:58 Pulse Ox 99 08/04/20 12:58 Body Mass Index 20.7 vital signs have been reviewed as normal and appeared to be correct. Blood pressure normal. Heart rate normal. Respiration rate normal. Temperature normal. Oxygen saturation normal. Appearance: Alert. Oriented X3. No acute distress. Head: Normal external exam. Normocephalic. Atraumatic. Eyes: PERRLA. EOMI. Conjunctiva and sclera normal. Eyelids normal. ENT: Pharynx normal. Uvula midline. Moist mucous membranes. Neck: Normal inspection. Neck supple. FROM. No adenopathy. No meningeal signs. CVS: Normal heart rate and rhythm. Heart sound normal. No murmurs noted. Pulses normal throughout. Respiratory: No respiratory distress. Painless inspiration. Breath sounds normal. No wheezes/rales/rhonchi noted. Chest nontender. No accessory muscle usage noted or decreased air movement noted. Abdomen: Soft and nontender. Bowel sounds normal in all 4 quadrants. No distention noted. No organomegaly noted. No visible injury noted. : deferred Back: No CVA tenderness. Full range of motion noted. Skin: Skin warm and dry. Normal skin color. Normal skin turgor. No rashes/lesions/lacerations noted. Extremities: Extremities exhibit normal range of motion. Extremities nontender. Neuro: Oriented X 3. No motor deficit. No sensory deficit. Reflexes normal. Course Course Course Narrative: 20-year-old female presenting to the ED with dysuria with vaginal itching and vaginal swelling. UA within normal limits no evidence of UTI. UHCG negative for . Patient refused exam therefore she self swab for bacterial vaginosis/Trichomonas/BV/yeast/gonorrhea chlamydia. She does not want any treatment for gonorrhea chlamydia at this time as she does not believe she has any STDs she only wants to be tested for STDs. Patient most likely yeast or bacterial vaginosis based on the patient's symptoms and vaginal discharge. Will DC home with symptomatic treatment for bacterial vaginosis and yeast infection instructions return if any new or worsening symptoms and to follow up with primary care provider/OBGYN and to stay abstinent from any sexual intercourse until she finds out if she is negative for gonorrhea chlamydia. Patient understands agrees with this plan. MDM - Female Genitourinary Medical Records Attestation: I reviewed the patient's medical records. Lab Data Attestation: I reviewed the patient's lab results. Labs: Lab Results 08/04/20 Range/Units 13:15 Urine Color YELLOW Urine Appearance CLEAR Urine pH 6.5 (5.0-8.0) Ur Specific [place] 1.020 (1.005-1.025) Urine Protein NEG (NEG-TRACE) MG/DL Urine Glucose (UA) NEG (NEG) MG/DL Urine Ketones NEG (NEG) MG/DL Urine Blood NEG (NEG) Urine Nitrite NEG (NEG) Ur Leukocyte Esterase NEG (NEG) Urine Test NEGATIVE (NEGATIVE) Discharge Plan Discharge Clinical Impression: Bacterial vaginosis Vaginitis Qualifiers: Chronicity: acute Qualified Code(s): N76.0 - Acute vaginitis Patient Disposition: Home, Self-Care Instructions: Bacterial Vaginosis (ED), Yeast Infection (ED) Additional Instructions: You have pending lab results if any are positive you will be contacted. sustain abstinent from any sexual intercourse until you know of your results. Return if any new or worsening symptoms. Follow up with her primary care provider return if any new or worsening symptoms. Prescriptions: New metronidazole [Flagyl] 500 mg tablet 500 mg PO BID 7 Days Qty: 14 RF: 0 fluconazole [Diflucan] 150 mg tablet 150 mg PO Q3D Qty: 2 RF: 0 No Action amoxicillin 500 mg tablet 500 mg PO BID Qty: 20 RF: 0 ondansetron 4 mg tablet,disintegrating 4 mg PO Q8H PRN (Reason: nausea and vomiting) Qty: 20 RF: 0 Referrals: Physician,Unknown [Primary Care Provider] - 2 days (your pcp) Print Language: [place] Citizen
[2020-08-06 09:22] LABS: BV Int Neg Control Negative (Negative); BV Int Pos Control Positive (Positive)
[2020-08-06 16:48] LABS: C. trachomatis RNA TMA NOT DETECTED (NOT DETECTED); N. gonorrhoeae RNA TMA NOT DETECTED (NOT DETECTED)
== END 2020-08-04 14:15 | disposition home or self-care (01) ==
PROVIDERS: Physician Assistant Medical; Emergency Provider Internal Medicine
DX: N76.0 Acute vaginitis (principal); Z79.899 Other long term (current) drug therapy
CPT/HCPCS: 36415; 81003; 81025; 87480; 87491; 87510; 87591; 87660; 99283

== ENCOUNTER 2020-08-16 13:26 | Outpatient (REF) | payer OTHER, MEDICAID, SELFPAY | END 2020-08-16 13:27 | disposition home or self-care (01) | LOC: HO.LAB 13:26 | PROVIDERS: Visit Provider Internal Medicine | DX: Z20.822 Contact with and (suspected) exposure to COVID-19 (principal) | CPT/HCPCS: 36415; C9803; U0003; U0005 ==

== ENCOUNTER 2020-09-10 10:04 | Emergency (ER) | payer OTHER, MEDICAID, SELFPAY ==
[2020-09-10 10:32] VITALS: BP 108/55; PULSE 76; RESP 18; TEMP 36.8; O2SAT 97; BMI 21.6
--- NOTE | 2020-09-10 10:37 | PC.NURSE ---
ASSISTED MD WITH BREAST EXAM. PT TOLERATED PROCEDURE WELL.
--- NOTE | 2020-09-10 10:37 | ED.SKABFB ---
HPI - Skin/Abscess/Foreign Bdy General Chief complaint: Skin/Abscess/Foreign Body Stated complaint: breast infection from piercing Time Seen by Provider: 09/10/20 10:37 Source: patient Mode of arrival: ambulatory Limitations: no limitations History of Present Illness HPI narrative: 2 weeks of intermittent redness and bump that drained at R nipple piercing, wants to keep piercings, no systemic symptoms, no prior need for oral antibitoics MD complaint: rash Onset (ago): week(s) (2) Tetanus up to date: yes Location: chest Severity: mild Pain Consistency: constant Relieving factors: none Exacerbating factors: none Context: other (nipple piercings) Associated symptoms: denies other symptoms Treatments prior to arrival: none Related Data Previous Rx's Medication Instructions Recorded amoxicillin 500 mg PO BID #20 tab 05/15/20 ondansetron 4 mg PO Q8H PRN #20 tab 05/21/20 fluconazole [Diflucan] 150 mg PO Q3D #2 tab 08/04/20 metronidazole [Flagyl] 500 mg PO BID 7 Days #14 tab 08/04/20 cephalexin 500 mg PO BID 7 Days #14 cap 09/10/20 mupirocin 1 appl TOPICAL BID 7 Days #15 g 09/10/20 Allergies Allergy/AdvReac Type Severity Reaction Status Date / Time No Known Allergies Allergy Verified 08/01/20 02:20 [No Known Allergies*] Review of Systems Review of Systems: Constitutional : No Fever, No Chills ENT/Mouth : No sore throat, No Rhinorrhea Eyes: No Eye Pain, No Swelling, No Redness Cardiovascular : No Chest Pain, No SOB Respiratory : No Cough, No Sputum Gastrointestinal : No Nausea, No Vomiting, No Diarrhea, No abdominal Pain Genitourinary : No Dysuria, No Hematuria Musculoskeletal : No joint pain, No Myalgias, No Joint Swelling Skin : No Skin Lesions, positive skin rash Neuro : No Weakness, No Numbness, No Headache Psych : No Anxiety, No Depression Heme/Lymph: No Bruising, No Bleeding,No Lymphadenopathy Endocrine : No Polyuria, No Polydipsia All other systems reviewed and are negative [facility] Past Medical History Attestation statement: The following information was validated with the patient. Medical History Asthma GERD (gastroesophageal reflux disease) No known health problems Surgical History Hx of cholecystectomy Social History Social History Alcohol intake: unknown Smoking Status: Unknown if ever smoked Advance Directives: No Advance Directives Information Provided: No Physical Exam Vital Signs: Vital Signs: Last Vital Signs Temp 98.3 F 09/10/20 10:32 Pulse 76 09/10/20 10:32 Resp 18 09/10/20 10:32 BP 108/55 L 09/10/20 10:32 Pulse Ox 97 09/10/20 10:32 Body Mass Index 21.6 Appearance: Alert. Oriented X3. No acute distress. Eyes: Pupils equal, round and reactive to light. ENT: Pharynx normal. Neck: Normal inspection. Neck supple. CVS: Normal heart rate and rhythm. Pulses normal. Chest: mild erythema medial aspect of R breast, piercing noted in nipple, no drainage, small bump noted but not fluctuanct bump noted at site of medial piercing insertion Respiratory: No respiratory distress. Breath sounds normal. Abdomen: Soft and nontender. Skin: Skin warm and dry. Normal skin color. Normal skin turgor. Extremities: No lower extremity edema. No calf ttp Neuro: Oriented X 3. No motor deficit. No sensory deficit. MDM - Skin/Abscess/Foreign Bdy MDM Narrative Medical decision making narrative: 20 yo female with mild cellulitis of L breast no abscess noted, due to piercing will Rx cephalexin and mupirocin - not toxic, no systemic symptoms Discharge Plan Discharge Clinical Impression: Cellulitis Qualifiers: Site of cellulitis: trunk Site of cellulitis of trunk: chest wall Qualified Code(s): L03.313 - Cellulitis of chest wall Patient Disposition: Home, Self-Care Instructions: Cellulitis (ED) Additional Instructions: return to ED for any worsening symptoms or concerns Prescriptions: New cephalexin 500 mg capsule 500 mg PO BID 7 Days Qty: 14 RF: 0 mupirocin 2 % ointment 1 appl topical BID 7 Days Qty: 15 RF: 0 No Action metronidazole [Flagyl] 500 mg tablet 500 mg PO BID 7 Days Qty: 14 RF: 0 fluconazole [Diflucan] 150 mg tablet 150 mg PO Q3D Qty: 2 RF: 0 amoxicillin 500 mg tablet 500 mg PO BID Qty: 20 RF: 0 ondansetron 4 mg tablet,disintegrating 4 mg PO Q8H PRN (Reason: nausea and vomiting) Qty: 20 RF: 0
== END 2020-09-10 10:53 | disposition home or self-care (01) ==
LOC: HO.ED 10:39
PROVIDERS: Emergency Provider Emergency Medicine
DX: L03.313 Cellulitis of chest wall (principal); N64.4 Mastodynia
CPT/HCPCS: 99283

== ENCOUNTER 2020-09-18 12:21 | Outpatient (REF) | payer MEDICAID, SELFPAY | END 2020-09-18 12:22 | disposition home or self-care (01) | LOC: HO.LAB 12:21 | PROVIDERS: Visit Provider Internal Medicine | DX: Z20.822 Contact with and (suspected) exposure to COVID-19 (principal) | CPT/HCPCS: 36415; C9803; U0003; U0005 ==

== ENCOUNTER 2020-09-22 15:37 | Emergency (ER) | payer OTHER, MEDICAID, SELFPAY ==
[2020-09-22 16:04] VITALS: BP 111/73; PULSE 60; RESP 16; TEMP 36.6; O2SAT 99
== END 2020-09-22 18:24 | disposition left against medical advice (07) ==
PROVIDERS: Emergency Provider Emergency Medicine
DX: R10.9 Unspecified abdominal pain (principal); K21.9 Gastro-esophageal reflux disease without esophagitis; J45.909 Unspecified asthma, uncomplicated; Z90.49 Acquired absence of other specified parts of digestive tract
CPT/HCPCS: 99291

== ENCOUNTER 2020-10-06 12:47 | Emergency (ER) | payer MEDICAID, SELFPAY ==
[2020-10-06 13:07] VITALS: BP 104/57; PULSE 79; RESP 16; TEMP 36.6; O2SAT 99; BMI 20.7
--- NOTE | 2020-10-06 14:45 | ED.NAVMDI ---
HPI - Nausea/Vomiting/Diarrhea General Chief complaint: Abdominal Pain Stated complaint: vomiting Time Seen by Provider: 10/06/20 14:39 History of Present Illness HPI Narrative: This is a 20 years old of female presented to the emergency department due to complaint of nausea vomiting, she states she was drinking yesterday and this morning she woke up vomiting MD elicited complaint: nausea and vomiting Onset (ago): hour(s) (6) Radiation: diffuse Quality: cramping Related Data Previous Rx's Medication Instructions Recorded amoxicillin 500 mg PO BID #20 tab 05/15/20 ondansetron 4 mg PO Q8H PRN #20 tab 05/21/20 fluconazole [Diflucan] 150 mg PO Q3D #2 tab 08/04/20 metronidazole [Flagyl] 500 mg PO BID 7 Days #14 tab 08/04/20 cephalexin 500 mg PO BID 7 Days #14 cap 09/10/20 mupirocin 1 appl TOPICAL BID 7 Days #15 g 09/10/20 Allergies Allergy/AdvReac Type Severity Reaction Status Date / Time No Known Allergies Allergy Verified 08/01/20 02:20 [No Known Allergies*] Review of Systems Review of Systems: Yes all other systems are reviewed and are negative Gastrointestinal: Gastrointestinal: Reports as per HPI [facility] Past Medical History Medical History Asthma GERD (gastroesophageal reflux disease) No known health problems Surgical History Hx of cholecystectomy Social History Social History Alcohol intake: current Alcohol intake frequency: a few times a month Smoking Status: Never smoker Use of substances other than those prescribed or required for medical reasons: No Advance Directives: No Advance Directives Information Provided: Yes Physical Exam Vital Signs: Vital Signs: Last Vital Signs Temp 98 F 10/06/20 13:07 Pulse 79 10/06/20 13:07 Resp 16 10/06/20 13:07 BP 104/57 L 10/06/20 13:07 Pulse Ox 99 10/06/20 13:07 Body Mass Index 20.7 Const: Other: Patient is awake and alert in not acute distress comfortable in the stretcher Orientation/consciousness: oriented to person, oriented to place, oriented to time and patient oriented x3 HENMT: Head: Yes normal to inspection General nose exam: Normal external nose present Face and sinus: Yes normal facial exam Mouth: Normal oral and palatal mucosa present Eyes: General: appearance normal, both eyes and all related structures Neck: Neck: Yes normal visual inspection Chest: Chest palpation & inspection: normal inspection of the chest and normal palpation of entire chest wall Resp: Effort & Inspection: normal respiratory effort Auscultation: clear to auscultation bilaterally Cardio: Palpation: normal PMI GI: Inspection: Yes normal to inspection Palpation (GI): Soft to palpation Skin: General skin exam: no rashes or lesions noted and elasticity normal Neuro: General: oriented to person, oriented to place, oriented to time and patient oriented x3 Extrem: General: Yes normal to inspection, Yes full ROM and Yes capillary refill normal Course Reevaluation(s) Reevaluation #1: At this time the patient is feeling much better, she is playing with it telephone no vomiting labs are within normal limit test is negative okay to discharge Time: 15:43 MDM - Nausea/Vomiting/Diarrhea Lab Data Result diagrams: 10/06/20 15:03 10/06/20 15:03 Labs: Lab Results 10/06/20 10/06/20 10/06/20 Range/Units 15:03 15:03 15:03 WBC 8.0 (4.8-10.8) X10*3/uL RBC 4.44 (4.20-5.50) X10*6/uL Hgb 12.9 (12.0-16.0) g/dl Hct 37.9 (37-47) % MCV 85.4 (80-98) fL MCH 29.1 (27.0-33.0) pg MCHC 34.0 (31.0-35.0) g/dl RDW 12.9 (11.0-16.0) % Plt Count 285 (160-400) X10*3/uL MPV 10.7 (9.4-12.3) fL Immature Gran % (Auto) 0.1 (0.0-0.4) % Neut % (Auto) 58.5 (45-73) % Lymph % (Auto) 33.2 (20-40) % [place] % (Auto) 7.3 (2-11) % Eos % (Auto) 0.4 (0-4) % Baso % (Auto) 0.5 (0-2) % Lymph # (Auto) 2.7 (1.2-4.9) X10*3/uL [place] # (Auto) 0.6 (0.1-1.2) X10*3/uL Eos # (Auto) 0.0 (0.0-0.4) X10*3/uL Baso # (Auto) 0.0 (0.0-0.2) X10*3/uL Abs Immat Gran (auto) 0.01 (0.00-0.03) X10*3/uL Absolute Neuts (auto) 4.7 (2.0-8.3) X10*3/uL Absolute Nucleated RBC 0.000 (0.0-0.012) X10*3/uL Nucleated RBC % (auto) 0.0 (0.0-0.2) /100WBC Sodium 142 (135-145) mmol/L Potassium 4.1 (3.3-5.1) mmol/L Chloride 108 (96-108) mmol/L Carbon Dioxide 23 (22-29) mmol/L Anion Gap 15 (12-20) BUN 11 D (9-16) mg/dL Creatinine 0.67 (0.5-1.4) mg/dL Estim Creat Clear Calc 119.9 Estimated GFR > 60 Random Glucose 83 (60-115) mg/dL Calcium 9.1 (8.4-10.2) mg/dL Total Bilirubin 0.6 (0.0-1.0) mg/dL AST 22 (5-31) U/L ALT 24 (0-31) U/L Alkaline Phosphatase 65 (39-117) U/L Total Protein 7.6 (6.5-8.0) g/dL Albumin 4.7 (3.5-5.0) g/dL Lipase 22 (8-78) U/L Beta HCG, Quant < 2 mIU/mL Discharge Plan Discharge Prescriptions: No Action metronidazole [Flagyl] 500 mg tablet 500 mg PO BID 7 Days Qty: 14 RF: 0 fluconazole [Diflucan] 150 mg tablet 150 mg PO Q3D Qty: 2 RF: 0 amoxicillin 500 mg tablet 500 mg PO BID Qty: 20 RF: 0 ondansetron 4 mg tablet,disintegrating 4 mg PO Q8H PRN (Reason: nausea and vomiting) Qty: 20 RF: 0 cephalexin 500 mg capsule 500 mg PO BID 7 Days Qty: 14 RF: 0 mupirocin 2 % ointment 1 appl topical BID 7 Days Qty: 15 RF: 0
[2020-10-06] MEDS: 0.9 % Sodium Chloride 1,000 ML 999 ML IVCONT (15:09)
[2020-10-06] MEDS: ondansetron HCL 4 MG/2 ML VIAL IVPUSH (15:10)
[2020-10-06 15:12] LABS: MANUAL DIFF FLAG NO
[2020-10-06 15:13] LABS: Basophils Percent Auto 0.5 % (0-2); Eosinophils Percent Auto 0.4 % (0-4); Hematocrit 37.9 % (37-47); Hemoglobin 12.9 g/dl (12.0-16.0); Imm Gran Abs Auto 0.01 X10*3/uL (0.00-0.03); Imm Gran Pct Auto 0.1 % (0.0-0.4); Lymphocytes Absolute Auto 2.7 X10*3/uL (1.2-4.9); Lymphocytes Percent Auto 33.2 % (20-40); Mean Corpuscular Hemoglobin 29.1 pg (27.0-33.0); Mean Corpuscular Volume 85.4 fL (80-98); Mean Platelet Volume 10.7 fL (9.4-12.3); Monocytes Absolute Auto 0.6 X10*3/uL (0.1-1.2); Monocytes Percent Auto 7.3 % (2-11); Neutrophils Absolute Auto 4.7 X10*3/uL (2.0-8.3); Neutrophils Percent Auto 58.5 % (45-73); Platelet Count 285 X10*3/uL (160-400); Red Blood Count 4.44 X10*6/uL (4.20-5.50); Red Cell Distribution Width 12.9 % (11.0-16.0)
[2020-10-06 15:39] LABS: HCG Quantitative < 2 mIU/mL
[2020-10-06 15:41] LABS: Alanine Aminotransferase 24 U/L (0-31); Albumin Level 4.7 g/dL (3.5-5.0); Alkaline Phosphatase 65 U/L (39-117); Anion Gap 15 (12-20); Aspartate Amino Transferase 22 U/L (5-31); Bilirubin Total 0.6 mg/dL (0.0-1.0); Blood Urea Nitrogen 11 mg/dL (9-16); Calcium 9.1 mg/dL (8.4-10.2); Carbon Dioxide 23 mmol/L (22-29); Chloride 108 mmol/L (96-108); Creatinine Clr Calc Pharmacy 119.9; Estimated Glomerular Filt Rate > 60; Glucose Random 83 mg/dL (60-115); Lipase 22 U/L (8-78); Potassium 4.1 mmol/L (3.3-5.1); Sodium 142 mmol/L (135-145); Total Protein 7.6 g/dL (6.5-8.0)
[2020-10-06 16:01] VITALS: BP 114/72; PULSE 57; RESP 14; O2SAT 100
== END 2020-10-06 16:02 | disposition home or self-care (01) ==
PROVIDERS: Emergency Provider Emergency Medicine
DX: R11.2 Nausea with vomiting, unspecified (principal); Z90.49 Acquired absence of other specified parts of digestive tract
CPT/HCPCS: 36415; 80053; 83690; 84702; 85025; 96361; 96374; 99284; J2405

== ENCOUNTER 2021-01-14 15:22 | Emergency (ER) | payer MEDICAID, SELFPAY ==
[2021-01-14 16:07] VITALS: BP 119/76; PULSE 71; RESP 18; TEMP 37.1; O2SAT 100; BMI 21.6
[2021-01-14 18:25] LABS: Glucose Urine UA NEG (NEG); Leukocyte Esterase Urine NEG (NEG); Nitrite Urine NEG (NEG); Urine Blood NEG (NEG); Urine Ketones NEG (NEG); Urine Protein NEG (NEG-TRACE)
--- NOTE | 2021-01-14 18:27 | ED.FEMALEGU ---
HPI - Female Genitourinary General Chief complaint: Urogenital-Female Stated complaint: Vaginal discharge Time Seen by Provider: 01/14/21 18:07 Source: patient Mode of arrival: ambulatory Limitations: no limitations History of Present Illness HPI Narrative: 20-year-old female here with complaints of thick white vaginal discharge for several days with dysuria and a bad smell. She denies any pelvic pain, nausea, vomiting, fevers, chills. Two weeks ago she had unprotected sexual intercourse with a new partner and so she is concerned for STD exposure. Related Data Previous Rx's Medication Instructions Recorded amoxicillin 500 mg PO BID #20 tab 05/15/20 ondansetron 4 mg PO Q8H PRN #20 tab 05/21/20 fluconazole [Diflucan] 150 mg PO Q3D #2 tab 08/04/20 metronidazole [Flagyl] 500 mg PO BID 7 Days #14 tab 08/04/20 cephalexin 500 mg PO BID 7 Days #14 cap 09/10/20 mupirocin 1 appl TOPICAL BID 7 Days #15 g 09/10/20 ondansetron HCl [Zofran] 4 mg PO Q8H PRN #14 tab 10/06/20 doxycycline monohydrate 100 mg PO BID #14 cap 01/14/21 Allergies Allergy/AdvReac Type Severity Reaction Status Date / Time No Known Allergies Allergy Verified 08/01/20 02:20 [No Known Allergies*] Review of Systems Review of Systems: Yes all other systems are reviewed and are negative Constitutional: Constitutional: Reports no additional constitutional complaints, Denies body ache(s), Denies chills, Denies fever(s), Denies headache(s) and Denies weakness Eyes: Eyes: Reports no additional eye complaints and Denies change in vision ENT: Reports system reviewed and no additional complaints, except as documented, Denies dizziness, Denies headache(s), Denies nasal congestion, Denies nasal discharge and Denies neck pain Cardiovascular: Cardiovascular: Reports no additional cardiovascular complaints, Denies chest pain, Denies leg edema and Denies dyspnea Respiratory: Respiratory: Reports no additional respiratory complaints, Denies cough and Denies dyspnea Gastrointestinal: Gastrointestinal: Reports no additional gastrointestinal complaints, Denies abdominal pain, Denies diarrhea, Denies nausea and Denies vomiting Genitourinary: Genitourinary: Reports no additional female genitourinary complaints, Reports dysuria, Denies urinary incontinence, Reports vaginal discharge and Reports vaginal odor Musculoskeletal: Musculoskeletal: Reports no additional musculoskeletal complaints, Denies back pain, Denies arthralgias, Denies joint swelling, Denies neck pain, Denies numbness and Denies tingling Integumentary/Breasts: Skin/Breast: Reports system reviewed and no additional complaints, except as docu and Denies rash Neurologic: Reports system reviewed and no additional complaints, except as documented, Denies Abnormal speech present, Denies dizziness, Denies headache(s), Denies numbness, Denies tingling and Denies weakness [facility] Past Medical History Attestation statement: The following information was validated with the patient. Source: old records reviewed and nursing notes reviewed Medical History Asthma GERD (gastroesophageal reflux disease) No known health problems Surgical History Hx of cholecystectomy Social History Social History Alcohol intake: current Alcohol intake frequency: a few times a month Advance Directives: No Advance Directives Information Provided: No Patient : No Physical Exam Vital Signs: Vital Signs: Last Vital Signs Temp 98.8 F 01/14/21 16:07 Pulse 71 01/14/21 16:07 Resp 18 01/14/21 16:07 BP 119/76 01/14/21 16:07 Pulse Ox 100 01/14/21 16:07 Body Mass Index 21.6 Const: General: cooperative, healthy appearing, comfortable and no acute distress Orientation/consciousness: patient oriented x3 Limitations: no limitations HENMT: Head: Yes normal to inspection Ears: hearing grossly normal bilaterally General nose exam: Normal external nose present Face and sinus: Yes normal facial exam Mouth: Normal oral and palatal mucosa present Throat: Yes posterior oropharynx normal Eyes: General: appearance normal, both eyes and all related structures Pupils: Equal, round and reactive pupils present Neck: Neck: Yes normal visual inspection Chest: Chest palpation & inspection: normal inspection of the chest Resp: Effort & Inspection: normal respiratory effort Auscultation: clear to auscultation bilaterally Cardio: Rate: regular rate Rhythm: regular rhythm Peripheral pulses: Peripheral pulses 2+ throughout GI: Inspection: Yes normal to inspection Palpation (GI): Soft to palpation and nontender Auscultation: normal bowel sounds : Other: [employer] [email or web address] no appreciable vaginal discharge External Female Exam: normal external appearance Speculum Exam - Vagina: normal appearance of the vagina Speculum Exam - Cervix: normal appearance of the cervix Bimanual exam- vagina & uterus: normal bimanual exam Bimanual Exam- Adnexa, other: normal adnexae Back/Spine/Pelvis: Thoracic/Lumbar Spine: thoracic and lumbar spine normal to inspection Skin: General skin exam: no rashes or lesions noted Neuro: General: patient oriented x3, no focal motor deficits and normal sensation to monofilament Cranial nerves: Yes Equal, round and reactive pupils present Cognition (Neuro): normal cognition Speech: No Abnormal speech present Gait exam (Neuro): Normal gait present Motor exam (neuro): 5/5 motor strength present throughout Extrem: General: Yes normal to inspection Course Course Course Narrative: 20-year-old female here with complaints of vaginal discharge, vaginal odor and dysuria times several weeks and the setting of recent unprotected sex with a new sexual partner. She has no pelvic pain on exam. I do not appreciate any vaginal discharge. Will send UA, urine , CTNG, BV panel. Patient treated prophylactically with ceftriaxone IM, doxycyline PO x1. Plan for course of doxycycline at home. Patient will be followed with the results of her swabs in the morning and further treatment by phone. This was discussed with the patient and she was agreeable with this. Reviewed worrisome signs and symptoms and when to return to the emergency department. Comfortable discharge home. MDM - Female Genitourinary Medical Records Attestation: I reviewed the patient's medical records. Lab Data Attestation: I reviewed the patient's lab results. Labs: Lab Results 01/14/21 Range/Units 18:19 Urine Color YELLOW Urine Appearance CLEAR Urine pH 7.0 (5.0-8.0) Ur Specific [place] 1.020 (1.005-1.025) Urine Protein NEG (NEG-TRACE) MG/DL Urine Glucose (UA) NEG (NEG) MG/DL Urine Ketones NEG (NEG) MG/DL Urine Blood NEG (NEG) Urine Nitrite NEG (NEG) Ur Leukocyte Esterase NEG (NEG) Discharge Plan Discharge Clinical Impression: Vaginal discharge, Concern about STD in female without diagnosis Patient Disposition: Home, Self-Care Instructions: Sexually Transmitted Diseases (ED), Vaginal Discharge (ED) Additional Instructions: we treated you prophylactically for gonorrhea and chlamydia. We will call you if your result tomorrow are positive and or if you need additional treatment. Use condoms Prescriptions: New doxycycline monohydrate 100 mg capsule 100 mg PO BID Qty: 14 RF: 0 No Action metronidazole [Flagyl] 500 mg tablet 500 mg PO BID 7 Days Qty: 14 RF: 0 fluconazole [Diflucan] 150 mg tablet 150 mg PO Q3D Qty: 2 RF: 0 ondansetron HCl [Zofran] 4 mg tablet 4 mg PO Q8H PRN (Reason: nausea and vomiting) Qty: 14 RF: 0 amoxicillin 500 mg tablet 500 mg PO BID Qty: 20 RF: 0 ondansetron 4 mg tablet,disintegrating 4 mg PO Q8H PRN (Reason: nausea and vomiting) Qty: 20 RF: 0 cephalexin 500 mg capsule 500 mg PO BID 7 Days Qty: 14 RF: 0 mupirocin 2 % ointment 1 appl topical BID 7 Days Qty: 15 RF: 0 Referrals: Physician,Nonstaff [Primary Care Provider] - 2 days
[2021-01-14 18:29] LABS: Appearance Urine CLEAR; Color Urine YELLOW
[2021-01-14 19:00] LABS: UPreg QC Valid YES; Urine Pregnancy NEGATIVE (NEGATIVE)
[2021-01-14] MEDS: cefTRIAXone sodium 250 MG, Lidocaine HCl 1 % MPF 0.9 ML IM (19:19)
[2021-01-15 02:50] LABS: CT PCR NOT DETECTED (Not Detect.); NG PCR NOT DETECTED (Not Detect.)
[2021-01-15 08:17] LABS: BV Int Neg Control Negative (Negative); BV Int Pos Control Positive (Positive)
== END 2021-01-14 19:39 | disposition home or self-care (01) ==
PROVIDERS: Nurse Practitioner Family; Emergency Provider Emergency Medicine
DX: N89.8 Other specified noninflammatory disorders of vagina (principal); Z11.3 Encounter for screening for infections with a predominantly sexual mode of transmission
CPT/HCPCS: 81003; 81025; 87480; 87491; 87510; 87591; 87660; 96372; 99284; J0696

== ENCOUNTER 2021-02-10 13:31 | Emergency (ER) | payer MEDICAID, SELFPAY ==
--- NOTE | ~2021-02-10 | XR_ITS ---
EXAMINATION: XR CHEST CLINICAL INFORMATION: Pneumonia COMPARISON: None TECHNIQUE: Frontal view of the chest was obtained. FINDINGS: Lungs are well-inflated and clear. Trachea is midline in position. No interstitial disease, consolidation or mass. No pulmonary edema, pleural effusion or pneumothorax. Cardiac silhouette and pulmonary vessels are normal in size. The mediastinum and sydni have normal contour. The visualized bones, and upper abdomen, are unremarkable. XR/XR chest 1V IMPRESSION: No acute cardiopulmonary abnormality. No evidence of pneumonia.
[2021-02-10 14:13] VITALS: BP 102/68; PULSE 59; RESP 16; TEMP 36.8; O2SAT 98; BMI 21.8
--- NOTE | 2021-02-10 14:33 | ED_ITS ---
HPI - URI/Sore Throat General Chief Complaint: Upper Respiratory Symptoms Stated Complaint: sorethroat Time Seen by Provider: 02/10/21 15:02 Source: patient Mode of arrival: ambulatory Limitations: no limitations History of Present Illness HPI Narrative: Patient presents to ED for 1 week of sore throat, coughing, lost voice, and chest tightness. Patient states she is not vaccinated. MD elicited complaint: cough Related Data Previous Rx's Medication Instructions Recorded amoxicillin 500 mg tablet 500 mg PO BID #20 tab 05/15/20 ondansetron 4 mg disintegrating 4 mg PO Q8H PRN #20 tab 05/21/20 tablet fluconazole 150 mg tablet 150 mg PO Q3D #2 tab 08/04/20 (Diflucan) metronidazole 500 mg tablet 500 mg PO BID 7 Days #14 tab 08/04/20 (Flagyl) cephalexin 500 mg capsule 500 mg PO BID 7 Days #14 cap 09/10/20 mupirocin 2 % topical ointment 1 appl TOPICAL BID 7 Days #15 g 09/10/20 ondansetron HCl 4 mg tablet 4 mg PO Q8H PRN #14 tab 10/06/20 (Zofran) doxycycline monohydrate 100 mg 100 mg PO BID #14 cap 01/14/21 capsule benzonatate 100 mg capsule 100 mg PO TID PRN #15 cap 02/10/21 (Tessalon Perles) naproxen 500 mg tablet 500 mg PO BID PRN #20 tab 02/10/21 Allergies Allergy/AdvReac Type Severity Reaction Status Date / Time No Known Allergies Allergy Verified 08/01/20 02:20 [No Known Allergies*] Review of Systems Review of Systems: Yes all other systems are reviewed and are negative Constitutional: Constitutional: Reports as per HPI and Reports no additional constitutional complaints Eyes: Eyes: Reports as per HPI and Reports no additional eye complaints ENT: Reports system reviewed and no additional complaints, except as documented, Reports as per HPI, Reports otalgia and Reports sore throat Cardiovascular: Cardiovascular: Reports as per HPI and Reports no additional cardiovascular complaints Respiratory: Respiratory: Reports as per HPI, Reports no additional respiratory complaints, Reports pain on inspiration and Reports pain with cough Gastrointestinal: Gastrointestinal: Reports as per HPI and Reports no additional gastrointestinal complaints Genitourinary: Genitourinary: Reports no additional female genitourinary complaints and Reports as per HPI Musculoskeletal: Musculoskeletal: Reports no additional musculoskeletal complaints and Reports as per HPI Neurologic: Reports system reviewed and no additional complaints, except as documented and Reports as per HPI Psychiatric: Psychiatric: Reports no additional psychiatric complaints and Reports as per HPI [facility] Past Medical History Medical History Asthma GERD (gastroesophageal reflux disease) No known health problems Surgical History Hx of cholecystectomy Social History Social History Alcohol intake: current Alcohol intake frequency: a few times a month Advance Directives: No Advance Directives Information Provided: Yes Patient : No Physical Exam Vital Signs: Vital Signs: Last Vital Signs Temp 98.1 F 02/10/21 16:48 Pulse 63 02/10/21 16:48 Resp 16 02/10/21 16:48 BP 105/73 02/10/21 16:48 Pulse Ox 100 02/10/21 16:48 Body Mass Index 21.8 Const: General: cooperative, healthy appearing, comfortable, no acute distress, well developed, alert, awake and Physically active Vivek entation/consciousness: patient oriented x3 HENMT: Head: Yes normal to inspection, Yes No palpable skull fracture present, Yes normocephalic and Yes atraumatic Ears: hearing grossly normal bilaterally, external ears normal, TM's normal bilaterally, TM normal on the right, EAC's normal, mastoids normal and no periauricular adenopathy Throat: Yes posterior oropharynx normal, Yes tonsils normal and Yes uvula midline Eyes: General: appearance normal, both eyes and all related structures Neck: Neck: Yes normal visual inspection, Yes full ROM, Yes no lymphadenopathy, Yes no meningeal signs, Yes trachea midline and No supple Chest: Chest palpation & inspection: normal inspection of the chest and normal palpation of entire chest wall Resp: Effort & Inspection: normal respiratory effort and able to speak in complete sentences Auscultation: clear to auscultation bilaterally Cardio: Jugular venous distension: no JVD Heart sounds: S1 normal heart sound present GI: Inspection: Yes normal to inspection and No abdominal wall ecchymosis Palpation (GI): Soft to palpation, not firm, nontender, no guarding and not rigid : General: No CVA tenderness and Yes no CVA tenderness Back/Spine/Pelvis: Back: no CVA tenderness, No CVA tenderness and No back tenderness Skin: General skin exam: no rashes or lesions noted and elasticity normal Neuro: General: patient oriented x3, gait normal, no meningeal signs and CN's II-XI intact bilaterally Extrem: Other: Lower extremities negative for any swelling, pitting edema, calf tenderness Course Course Course Narrative: Return COVID upper chest x-ray. Due to patient's seen pleurisy will do EKG including COVID lab in D-dimer Reevaluation(s) Reevaluation #1: Patient for strep came back negative. Chest x-ray negative for pneumonia. D-dimer and troponin came back negative. CBC normal. EKG negative for STEMI. Patient preferred to be discharged and be called with COVID swab results. Time: 16:24 Reevaluation #2: Patient's COVID swab came back negative. Patient was called and informed of this result. Time: 17:11 MDM - URI/Sore Throat MDM Narrative Medical decision making narrative: Viral syndrome Lab Data Result diagrams: 02/10/21 15:07 02/10/21 15:07 Labs: Lab Results 02/10/21 02/10/21 02/10/21 Range/Units 14:34 14:34 14:34 WBC (4.8-10.8) X10*3/uL RBC (4.20-5.50) X10*6/uL Hgb (12.0-16.0) g/dl Hct (37-47) % MCV (80-98) fL MCH (27.0-33.0) pg MCHC (31.0-35.0) g/dl RDW (11.0-16.0) % Plt Count (160-400) X10*3/uL MPV (9.4-12.3) fL Immature Gran % (Auto) (0.0-0.4) % Neut % (Auto) (45-73) % Lymph % (Auto) (20-40) % Elliott % (Auto) (2-11) % Eos % (Auto) (0-4) % Baso % (Auto) (0-2) % Lymph # (Auto) (1.2-4.9) X10*3/uL Elliott # (Auto) (0.1-1.2) X10*3/uL Eos # (Auto) (0.0-0.4) X10*3/uL Baso # (Auto) (0.0-0.2) X10*3/uL Abs Immat Gran (auto) (0.00-0.03) X10*3/uL Absolute Neuts (auto) (2.0-8.3) X10*3/uL Absolute Nucleated RBC (0.0-0.012) X10*3/uL Nucleated RBC % (auto) (0.0-0.2) /100WBC PT (9.9-13.0) SEC INR (0.9-1.1) APTT (24.1-38.0) SEC D-Dimer NG/ML Sodium (135-145) mmol/L Potassium (3.3-5.1) mmol/L Chloride (96-108) mmol/L Carbon Dioxide (22-29) mmol/L Anion Gap (12-20) BUN (9-16) mg/dL Creatinine (0.5-1.4) mg/dL Estim Creat Clear Calc Estimated GFR Random Glucose (60-115) mg/dL Calcium (8.4-10.2) mg/dL Ferritin (10-122) ng/mL Total Bilirubin (0.0-1.0) mg/dL AST (5-31) U/L ALT (0-31) U/L Alkaline Phosphatase (39-117) U/L Lactate Dehydrogenase (122-220) U/L Troponin I High Sens (<3.5-17.0) ng/L Total Protein (6.5-8.0) g/dL Albumin (3.5-5.0) g/dL Procalcitonin ng/mL Urine Color YELLOW Urine Appearance CLEAR Urine pH 6.0 (5.0-8.0) Ur Specific [place] <= 1.005 (1.005-1.025) Urine Protein NEG (NEG-TRACE) MG/DL Urine Glucose (UA) NEG (NEG) MG/DL Urine Ketones NEG (NEG) MG/DL Urine Blood NEG (NEG) Urine Nitrite NEG (NEG) Ur Leukocyte Esterase NEG (NEG) Urine Test NEGATIVE (NEGATIVE) Coronavirus (PCR) NEGATIVE (Negative) Influenza Type A (PCR) NEGATIVE (Negative) Influenza Type B (PCR) NEGATIVE (Negative) RSV RNA Qual (PCR) NEGATIVE (Negative) S. pyogenes GrpA MAY (Negative) 02/10/21 02/10/21 02/10/21 Range/Units 14:37 15:06 15:06 WBC (4.8-10.8) X10*3/uL RBC (4.20-5.50) X10*6/uL Hgb (12.0-16.0) g/dl Hct (37-47) % MCV (80-98) fL MCH (27.0-33.0) pg MCHC (31.0-35.0) g/dl RDW (11.0-16.0) % Plt Count (160-400) X10*3/uL MPV (9.4-12.3) fL Immature Gran % (Auto) (0.0-0.4) % Neut % (Auto) (45-73) % Lymph % (Auto) (20-40) % Elliott % (Auto) (2-11) % Eos % (Auto) (0-4) % Baso % (Auto) (0-2) % Lymph # (Auto) (1.2-4.9) X10*3/uL Elliott # (Auto) (0.1-1.2) X10*3/uL Eos # (Auto) (0.0-0.4) X10*3/uL Baso # (Auto) (0.0-0.2) X10*3/uL Abs Immat Gran (auto) (0.00-0.03) X10*3/uL Absolute Neuts (auto) (2.0-8.3) X10*3/uL Absolute Nucleated RBC (0.0-0.012) X10*3/uL Nucleated RBC % (auto) (0.0-0.2) /100WBC PT 11.2 (9.9-13.0) SEC INR 1.0 (0.9-1.1) APTT 31.9 (24.1-38.0) SEC D-Dimer < 200 NG/ML Sodium (135-145) mmol/L Potassium (3.3-5.1) mmol/L Chloride (96-108) mmol/L Carbon Dioxide (22-29) mmol/L Anion Gap (12-20) BUN (9-16) mg/dL Creatinine (0.5-1.4) mg/dL Estim Creat Clear Calc Estimated GFR Random Glucose (60-115) mg/dL Calcium (8.4-10.2) mg/dL Ferritin (10-122) ng/mL Total Bilirubin (0.0-1.0) mg/dL AST (5-31) U/L ALT (0-31) U/L Alkaline Phosphatase (39-117) U/L Lactate Dehydrogenase (122-220) U/L Troponin I High Sens < 3.5 (<3.5-17.0) ng/L Total Protein (6.5-8.0) g/dL Albumin (3.5-5.0) g/dL Procalcitonin ng/mL Urine Color Urine Appearance Urine pH (5.0-8.0) Ur Specific [place] (1.005-1.025) Urine Protein (NEG-TRACE) MG/DL Urine Glucose (UA) (NEG) MG/DL Urine Ketones (NEG) MG/DL Urine Blood (NEG) Urine Nitrite (NEG) Ur Leukocyte Esterase (NEG) Urine Test (NEGATIVE) Coronavirus (PCR) (Negative) Influenza Type A (PCR) (Negative) Influenza Type B (PCR) (Negative) RSV RNA Qual (PCR) (Negative) S. pyogenes GrpA MAY Negative (Negative) 02/10/21 02/10/21 02/10/21 Range/Units 15:06 15:07 15:07 WBC 7.3 (4.8-10.8) X10*3/uL RBC 4.44 (4.20-5.50) X10*6/uL Hgb 12.9 (12.0-16.0) g/dl Hct 38.5 (37-47) % MCV 86.7 (80-98) fL MCH 29.1 (27.0-33.0) pg MCHC 33.5 (31.0-35.0) g/dl RDW 13.1 (11.0-16.0) % Plt Count 287 (160-400) X10*3/uL MPV 10.9 (9.4-12.3) fL Immature Gran % (Auto) 0.3 (0.0-0.4) % Neut % (Auto) 52.3 (45-73) % Lymph % (Auto) 38.9 (20-40) % Elliott % (Auto) 7.2 (2-11) % Eos % (Auto) 1.0 (0-4) % Baso % (Auto) 0.3 (0-2) % Lymph # (Auto) 2.8 (1.2-4.9) X10*3/uL Elliott # (Auto) 0.5 (0.1-1.2) X10*3/uL Eos # (Auto) 0.1 (0.0-0.4) X10*3/uL Baso # (Auto) 0.0 (0.0-0.2) X10*3/uL Abs Immat Gran (auto) 0.02 (0.00-0.03) X10*3/uL Absolute Neuts (auto) 3.8 (2.0-8.3) X10*3/uL Absolute Nucleated RBC 0.000 (0.0-0.012) X10*3/uL Nucleated RBC % (auto) 0.0 (0.0-0.2) /100WBC PT (9.9-13.0) SEC INR (0.9-1.1) APTT (24.1-38.0) SEC D-Dimer NG/ML Sodium 140 (135-145) mmol/L Potassium 4.3 (3.3-5.1) mmol/L Chloride 106 (96-108) mmol/L Carbon Dioxide 25 (22-29) mmol/L Anion Gap 13 (12-20) BUN 12 (9-16) mg/dL Creatinine 0.75 (0.5-1.4) mg/dL Estim Creat Clear Calc 107.6 Estimated GFR > 60 Random Glucose 92 (60-115) mg/dL Calcium 9.8 D (8.4-10.2) mg/dL Ferritin 16 (10-122) ng/mL Total Bilirubin 0.3 (0.0-1.0) mg/dL AST 15 (5-31) U/L ALT 16 (0-31) U/L Alkaline Phosphatase 68 (39-117) U/L Lactate Dehydrogenase 119 L (122-220) U/L Troponin I High Sens (<3.5-17.0) ng/L Total Protein 7.1 (6.5-8.0) g/dL Albumin 4.4 (3.5-5.0) g/dL Procalcitonin < 0.02 ng/mL Urine Color Urine Appearance Urine pH (5.0-8.0) Ur Specific [place] (1.005-1.025) Urine Protein (NEG-TRACE) MG/DL Urine Glucose (UA) (NEG) MG/DL Urine Ketones (NEG) MG/DL Urine Blood (NEG) Urine Nitrite (NEG) Ur Leukocyte Esterase (NEG) Urine Test (NEGATIVE) Coronavirus (PCR) (Negative) Influenza Type A (PCR) (Negative) Influenza Type B (PCR) (Negative) RSV RNA Qual (PCR) (Negative) S. pyogenes GrpA MAY (Negative) ECG Data Interpretation: Sinus bradycardia. Ventricular rate 51. Pr interval 128. QRS 86. QTC negative STEMI Discharge Plan Discharge Clinical Impression: Acute viral syndrome Patient Disposition: Home, Self-Care Instructions: Viral Syndrome (ED) Additional Instructions: Strep throat came back negative. Chest x-ray negative for pneumonia. EKG and troponin came back negative for heart attack. D-dimer came back negative for risk of blood clot. COVID swab is pending. You will be called with results. Return to ED for any chest pain, shortness of breath, swelling of lower ext remities, calf pain, coughing up blood, or any other concerning symptoms. Please follow-up with PCP. Prescriptions: New naproxen 500 mg tablet 500 mg PO BID PRN (Reason: pain) Qty: 20 RF: 0 benzonatate [Tessalon Perles] 100 mg capsule 100 mg PO TID PRN (Reason: cough) Qty: 15 RF: 0 No Action metronidazole [Flagyl] 500 mg tablet 500 mg PO BID 7 Days Qty: 14 RF: 0 fluconazole [Diflucan] 150 mg tablet 150 mg PO Q3D Qty: 2 RF: 0 ondansetron HCl [Zofran] 4 mg tablet 4 mg PO Q8H PRN (Reason: nausea and vomiting) Qty: 14 RF: 0 doxycycline monohydrate 100 mg capsule 100 mg PO BID Qty: 14 RF: 0 amoxicillin 500 mg tablet 500 mg PO BID Qty: 20 RF: 0 ondansetron 4 mg tablet,disintegrating 4 mg PO Q8H PRN (Reason: nausea and vomiting) Qty: 20 RF: 0 cephalexin 500 mg capsule 500 mg PO BID 7 Days Qty: 14 RF: 0 mupirocin 2 % ointment 1 appl topical BID 7 Days Qty: 15 RF: 0 Stand Alone Forms: Work/School Release Interventions: ED Discharge Assessment Last Done: 02/10/21 16:50 Discharge Date/Time: 02/10/21 16:59 Print Language: Nepalese
--- NOTE | 2021-02-10 14:41 | ECG_ITS ---
Test Reason : SOB Blood Pressure : / mmHG Vent. Rate : 055 BPM Atrial Rate : 055 BPM P-R Int : 128 ms QRS Dur : 084 ms QT Int : 428 ms P-R-T Axes : 070 081 060 degrees QTc Int : 409 ms Artfiact in tracing Sinus bradycardia with marked sinus arrhythmia Otherwise normal ECG When compared with ECG of 08-MAY-2020 10:55, No significant change was found Referred By: Paul Ortiz Electronically Signed By:TYLER SAAVEDRA
[2021-02-10 14:54] LABS: Glucose Urine UA NEG (NEG); Leukocyte Esterase Urine NEG (NEG); Nitrite Urine NEG (NEG); Specific Gravity - Urine <= 1.005 (1.005-1.025); UPreg QC Valid YES; Urine Blood NEG (NEG); Urine Ketones NEG (NEG); Urine Pregnancy NEGATIVE (NEGATIVE); Urine Protein NEG (NEG-TRACE)
[2021-02-10 14:55] LABS: Appearance Urine CLEAR; Color Urine YELLOW
[2021-02-10 14:55] LABS: IDNOW Serial# 9DD0AD1C; Strep A Nucleic Acid Negative (Negative)
--- NOTE | 2021-02-10 14:56 | ECG_ITS ---
Test Reason : SOB Blood Pressure : / mmHG Vent. Rate : 051 BPM Atrial Rate : 051 BPM P-R Int : 128 ms QRS Dur : 086 ms QT Int : 436 ms P-R-T Axes : 058 082 060 degrees QTc Int : 401 ms Sinus bradycardia Otherwise normal ECG When compared with ECG of 10-FEB-2021 14:53, No significant change was found Referred By: Paul Ortiz Electronically Signed By:Mayito Gore
[2021-02-10 15:13] LABS: MANUAL DIFF FLAG NO
[2021-02-10 15:16] LABS: Basophils Percent Auto 0.3 % (0-2); Eosinophils Absolute Auto 0.1 X10*3/uL (0.0-0.4); Hematocrit 38.5 % (37-47); Hemoglobin 12.9 g/dl (12.0-16.0); Imm Gran Abs Auto 0.02 X10*3/uL (0.00-0.03); Imm Gran Pct Auto 0.3 % (0.0-0.4); Lymphocytes Absolute Auto 2.8 X10*3/uL (1.2-4.9); Lymphocytes Percent Auto 38.9 % (20-40); Mean Corpuscular HGB Conc 33.5 g/dl (31.0-35.0); Mean Corpuscular Hemoglobin 29.1 pg (27.0-33.0); Mean Corpuscular Volume 86.7 fL (80-98); Mean Platelet Volume 10.9 fL (9.4-12.3); Monocytes Absolute Auto 0.5 X10*3/uL (0.1-1.2); Monocytes Percent Auto 7.2 % (2-11); Neutrophils Absolute Auto 3.8 X10*3/uL (2.0-8.3); Neutrophils Percent Auto 52.3 % (45-73); Platelet Count 287 X10*3/uL (160-400); Red Blood Count 4.44 X10*6/uL (4.20-5.50); Red Cell Distribution Width 13.1 % (11.0-16.0); White Blood Count 7.3 X10*3/uL (4.8-10.8)
[2021-02-10 15:33] LABS: Prothrombin Time 11.2 SEC (9.9-13.0)
[2021-02-10 15:41] LABS: Influenza A PCR NEGATIVE (Negative); Influenza B PCR NEGATIVE (Negative); Resp Syncy Virus RNA Qual PCR NEGATIVE (Negative); SARS COV2 PCR INHOUSE NEGATIVE (Negative)
[2021-02-10 16:04] LABS: Alanine Aminotransferase 16 U/L (0-31); Albumin Level 4.4 g/dL (3.5-5.0); Alkaline Phosphatase 68 U/L (39-117); Anion Gap 13 (12-20); Aspartate Amino Transferase 15 U/L (5-31); Bilirubin Total 0.3 mg/dL (0.0-1.0); Blood Urea Nitrogen 12 mg/dL (9-16); Calcium 9.8 mg/dL (8.4-10.2); Carbon Dioxide 25 mmol/L (22-29); Chloride 106 mmol/L (96-108); Creatinine Clr Calc Pharmacy 107.6; Estimated Glomerular Filt Rate > 60; Glucose Random 92 mg/dL (60-115); Lactate Dehydrogenase 119 U/L (122-220); Potassium 4.3 mmol/L (3.3-5.1); Sodium 140 mmol/L (135-145); Total Protein 7.1 g/dL (6.5-8.0)
[2021-02-10 16:07] LABS: Partial Thromboplastin Time 31.9 SEC (24.1-38.0)
[2021-02-10 16:10] LABS: Troponin-I High Sensitivity < 3.5 ng/L (<3.5-17.0)
[2021-02-10 16:15] LABS: D Dimer < 200 NG/ML
[2021-02-10 16:25] LABS: Procalcitonin < 0.02 ng/mL
[2021-02-10 16:33] LABS: Ferritin 16 ng/mL (10-122)
[2021-02-10 16:48] VITALS: BP 105/73; PULSE 63; RESP 16; TEMP 36.7; O2SAT 100
== END 2021-02-10 16:59 | disposition home or self-care (01) ==
PROVIDERS: Physician Assistant; Emergency Provider Internal Medicine
DX: B34.9 Viral infection, unspecified (principal); J02.9 Acute pharyngitis, unspecified; R05 Cough; R09.1 Pleurisy; Z79.899 Other long term (current) drug therapy; Z20.822 Contact with and (suspected) exposure to COVID-19
CPT/HCPCS: 0241U; 36415; 71045; 80053; 81003; 81025; 82728; 83615; 84145; 84484; 85025; 85379; 85610; 85730; 87651; 93005; 99284

== ENCOUNTER 2021-02-23 21:13 | Emergency (ER) | payer MEDICAID, SELFPAY ==
[2021-02-23 21:53] VITALS: BP 110/77; PULSE 81; RESP 16; TEMP 37.1; O2SAT 100; BMI 21.6
== END 2021-02-24 00:12 | disposition left against medical advice (07) ==
PROVIDERS: Emergency Provider Emergency Medicine
DX: M25.562 Pain in left knee (principal); M79.642 Pain in left hand
CPT/HCPCS: 99281; 99282

== ENCOUNTER 2021-02-25 07:19 | Emergency (ER) | payer OTHER, MEDICAID, SELFPAY ==
[2021-02-25 07:44] VITALS: BP 106/81; PULSE 85; RESP 18; O2SAT 98; BMI 21.6
--- NOTE | 2021-02-25 08:30 | ED_ITS ---
HPI - General Adult General Chief complaint: General Medical Stated complaint: Personal issue Time Seen by Provider: 02/25/21 08:13 Source: patient Mode of arrival: ambulatory Limitations: no limitations History of Present Illness HPI narrative: Patient presents to the ED for most likely yeast infection. Patient states she is on antibiotics for BV and she started having some white thick cheesy discharge. Patient states history of yeast infection in the past and received antibiotics. Patient not concerned for STDs. Patient recently tested last week for STDs and came back negative. Patient states she has been having protected sex. Related Data Previous Rx's Medication Instructions Recorded amoxicillin 500 mg tablet 500 mg PO BID #20 tab 05/15/20 ondansetron 4 mg disintegrating 4 mg PO Q8H PRN #20 tab 05/21/20 tablet fluconazole 150 mg tablet 150 mg PO Q3D #2 tab 08/04/20 (Diflucan) metronidazole 500 mg tablet 500 mg PO BID 7 Days #14 tab 08/04/20 (Flagyl) cephalexin 500 mg capsule 500 mg PO BID 7 Days #14 cap 09/10/20 mupirocin 2 % topical ointment 1 appl TOPICAL BID 7 Days #15 g 09/10/20 ondansetron HCl 4 mg tablet 4 mg PO Q8H PRN #14 tab 10/06/20 (Zofran) doxycycline monohydrate 100 mg 100 mg PO BID #14 cap 01/14/21 capsule benzonatate 100 mg capsule 100 mg PO TID PRN #15 cap 02/10/21 (Tessalon Perles) naproxen 500 mg tablet 500 mg PO BID PRN #20 tab 02/10/21 cephalexin 500 mg capsule 500 mg PO QID #28 cap 02/25/21 fluconazole 150 mg tablet 150 mg PO Q3D #2 tab 02/25/21 (Diflucan) Allergies Allergy/AdvReac Type Severity Reaction Status Date / Time No Known Allergies Allergy Verified 02/23/21 21:58 [No Known Allergies*] Review of Systems Constitutional: Constitutional: Reports as per HPI and Reports no additional constitutional complaints Eyes: Eyes: Reports as per HPI and Reports no additional eye complaints ENT: Reports system reviewed and no additional complaints, except as documented and Reports as per HPI Cardiovascular: Cardiovascular: Reports as per HPI and Reports no additional cardiovascular complaints Respiratory: Respiratory: Reports as per HPI and Reports no additional respiratory complaints Gastrointestinal: Gastrointestinal: Reports as per HPI and Reports no additional gastrointestinal complaints Genitourinary: Genitourinary: Reports no additional female genitourinary complaints, Reports as per HPI, Reports genital pruritis and Reports vaginal discharge (White/cheesy/frothy) Musculoskeletal: Musculoskeletal: Reports no additional musculoskeletal complaints and Reports as per HPI [facility] Past Medical History Medical History Asthma GERD (gastroesophageal reflux disease) No known health problems Surgical History Hx of cholecystectomy Social History Social History Alcohol intake: never Smoked in Last 30 Days: No Use of substances other than those prescribed or required for medical reasons: No Advance Directives: No Advance Directives Information Provided: No Physical Exam Vital Signs: Vital Signs: Last Vital Signs Pulse 85 02/25/21 07:44 Resp 18 02/25/21 07:44 BP 106/81 02/25/21 07:44 Pulse Ox 98 02/25/21 07:44 Body Mass Index 21.6 Const: General: cooperative, healthy appearing, comfortable, no acute distress, well developed, alert, awake and Physically active Orientation/consciousness: patient oriented x3 HENMT: Head: Yes normal to inspection, Yes No palpable skull fracture present, Yes normocephalic and Yes atraumatic Eyes: General: appearance normal, both eyes and all related structures Neck: Neck: Yes normal visual inspection, Yes full ROM, Yes no lymphadenopathy, Yes no meningeal signs, Yes trachea midline, Yes supple and No tender Chest: Chest palpation & inspection: normal inspection of the chest and normal palpation of entire chest wall Resp: Effort & Inspection: normal respiratory effort, able to speak in complete sentences and abnormal respiratory pattern Cardio: Jugular venous distension: no JVD Heart sounds: S1 normal heart sound present and S2 normal heart sound present GI: Inspection: Yes normal to inspection and No abdominal wall ecchymosis Palpation (GI): Soft to palpation, not firm, nontender, no guarding and not rigid : General: No CVA tenderness and Yes no CVA tenderness Back/Spine/Pelvis: Back: no CVA tenderness, No CVA tenderness and No back tenderness Skin: General skin exam: no rashes or lesions noted and elasticity normal Neuro: General: patient oriented x3, gait normal, no meningeal signs and CN's II-XI intact bilaterally Cranial nerves: Yes CN's II-XII intact bilaterally Extrem: General: Yes normal to inspection and Yes full ROM Psych: Appearance: grossly normal, well kempt and not disheveled Course Course Course Narrative: Patient refused pelvic exam. Reevaluation(s) Reevaluation #1: Patient refused pelvic exam. Patient does not want to have repeat swabs. Patient states she was recently tested negative for STDs and is not concerned for any STDs. Patient states having protected sex. Patient believes she has yeast infection. Patient will be discharged as cannula infection. Patient will be discharged with Diflucan. Time: 20:39 Reevaluation #2: Called in prescription for UTI. Time: 17:51 Medical Decision Making MDM Narrative Medical decision making narrative: Yeast infection Lab Data Labs: Lab Results 02/25/21 02/25/21 Range/Units 09:00 09:00 Urine Color YELLOW Urine Appearance CLOUDY Urine pH 6.0 (5.0-8.0) Ur Specific [place] 1.025 (1.005-1.025) Urine Protein TRACE (NEG-TRACE) MG/DL Urine Glucose (UA) NEG (NEG) MG/DL Urine Ketones NEG (NEG) MG/DL Urine Blood NEG (NEG) Urine Nitrite NEG (NEG) Ur Leukocyte Esterase 2+ H (NEG) Urine RBC 0-2 (0) /HPF Urine WBC 10-14 H (0-4) /HPF Ur Squamous Epith Cells 2+ /LPF Urine Bacteria 1+ /LPF Urine Mucus 2+ /LPF Urine Yeast 1+ /HPF Urine Test NEGATIVE (NEGATIVE) Discharge Plan Discharge Clinical Impression: Yeast infection Patient Disposition: Home, Self-Care Instructions: Yeast Infection (ED) Additional Instructions: You will be discharged with 2 doses of Diflucan. Return to ED for any abdominal pain, nausea, vomiting, fever, chills, vaginal lesions, worsening vaginal discharge, flank pain, or any other concerning symptoms. You will be called with UA results if positive. Please follow up with PCP. Prescriptions: New fluconazole [Diflucan] 150 mg tablet 150 mg PO Q3D Qty: 2 RF: 0 cephalexin 500 mg capsule 500 mg PO QID Qty: 28 RF: 0 No Action metronidazole [Flagyl] 500 mg tablet 500 mg PO BID 7 Days Qty: 14 RF: 0 fluconazole [Diflucan] 150 mg tablet 150 mg PO Q3D Qty: 2 RF: 0 ondansetron HCl [Zofran] 4 mg tablet 4 mg PO Q8H PRN (Reason: nausea and vomiting) Qty: 14 RF: 0 doxycycline monohydrate 100 mg capsule 100 mg PO BID Qty: 14 RF: 0 naproxen 500 mg tablet 500 mg PO BID PRN (Reason: pain) Qty: 20 RF: 0 benzonatate [Tessalon Perles] 100 mg capsule 100 mg PO TID PRN (Reason: cough) Qty: 15 RF: 0 amoxicillin 500 mg tablet 500 mg PO BID Qty: 20 RF: 0 ondansetron 4 mg tablet,disintegrating 4 mg PO Q8H PRN (Reason: nausea and vomiting) Qty: 20 RF: 0 cephalexin 500 mg capsule 500 mg PO BID 7 Days Qty: 14 RF: 0 mupirocin 2 % ointment 1 appl topical BID 7 Days Qty: 15 RF: 0 Interventions: ED Discharge Assessment Last Done: 02/25/21 09:03 Discharge Date/Time: 02/25/21 09:04 Print Language: [place]
[2021-02-25 09:10] LABS: Glucose Urine UA NEG (NEG); Leukocyte Esterase Urine 2+ (NEG); Nitrite Urine NEG (NEG); Specific Gravity - Urine 1.025 (1.005-1.025); UACC Culture Trigger YES; Urine Blood NEG (NEG); Urine Ketones NEG (NEG); Urine Protein TRACE MG/DL (NEG-TRACE)
[2021-02-25 09:12] LABS: Appearance Urine CLOUDY; Color Urine YELLOW
[2021-02-25 09:21] LABS: Bacteria Urine 1+ /LPF; Mucus Urine 2+ /LPF; RBC Urine 0-2 /HPF (0); Squamous Epithelial Cell Urine 2+ /LPF; UPreg QC Valid YES; Urine Pregnancy NEGATIVE (NEGATIVE)
== END 2021-02-25 09:04 | disposition home or self-care (01) ==
PROVIDERS: Physician Assistant; Emergency Provider Internal Medicine
DX: B37.3 Candidiasis of vulva and vagina (principal); Z90.49 Acquired absence of other specified parts of digestive tract
CPT/HCPCS: 81001; 81025; 87086; 99283; 99284

== ENCOUNTER 2021-08-23 09:56 | Emergency (ER) | payer MEDICAID, SELFPAY ==
[2021-08-23 09:59] VITALS: BP 105/74; PULSE 78; RESP 16; TEMP 36.6; O2SAT 99; BMI 20.8
[2021-08-23 11:07] LABS: UPreg QC Valid YES; Urine Pregnancy NEGATIVE (NEGATIVE)
[2021-08-23 11:10] LABS: Appearance Urine CLOUDY; Color Urine YELLOW; Glucose Urine UA NEG (NEG); Leukocyte Esterase Urine TRACE (NEG); Nitrite Urine NEG (NEG); PH 8.5 (5.0-8.0); UACC Culture Trigger YES; Urine Blood 3+ (NEG); Urine Ketones NEG (NEG); Urine Protein 2+ MG/DL (NEG-TRACE)
[2021-08-23 11:15] LABS: WBC Urine 0-2 /HPF (0-4)
[2021-08-23 11:16] LABS: Bacteria Urine TRACE /LPF; Mucus Urine 2+ /LPF; RBC Urine 50-75 /HPF (0); Squamous Epithelial Cell Urine 2+ /LPF
--- NOTE | 2021-08-23 11:19 | ED_ITS ---
HPI - Nausea/Vomiting/Diarrhea General Chief complaint: Nausea/Vomiting/Diarrhea Stated complaint: vomiting Time Seen by Provider: 08/23/21 10:26 Source: patient Mode of arrival: ambulatory Limitations: no limitations History of Present Illness HPI Narrative: 21 y/o female with history GERD, s/p cholecystecomy who presents to the ER with an acid reflux flare and vomiting that started this morning after she drank Mat last night and had food with hot sauce on it. She reports several episodes similar to this with burning epigastric pain and multiple episodes of vomiting. She reports she always requires IV fluids and IV medications and she never tolerate oral medications. She is refusing sublingual Zofran in triage. She denies fevers, chills, chance of , urinary symptoms. She states her pain is in the epigastric area and burning in nature, sometimes it radiates up into her chest right before she is about to vomit. She states she threw up 3 times this morning, all bile without any blood. MD elicited complaint: nausea, vomiting and abdominal pain Pertinent past history: alcohol abuse Onset (ago): hour(s) Description of vomiting: bilious Associated nausea: Yes Associated abdominal pain: Yes Location of pain: epigastric Radiation: chest Pain consistency: intermittent Severity: moderate Quality: other (Burning) Exacerbating factors: eating Relieving factors: medication Context: alcohol abuse Associated symptoms: loss of appetite and nausea/vomiting Related Data Previous Rx's Medication Instructions Recorded amoxicillin 500 mg tablet 500 mg PO BID #20 tab 05/15/20 ondansetron 4 mg disintegrating 4 mg PO Q8H PRN #20 tab 05/21/20 tablet fluconazole 150 mg tablet 150 mg PO Q3D #2 tab 08/04/20 (Diflucan) metronidazole 500 mg tablet 500 mg PO BID 7 Days #14 tab 08/04/20 (Flagyl) cephalexin 500 mg capsule 500 mg PO BID 7 Days #14 cap 09/10/20 mupirocin 2 % topical ointment 1 appl TOPICAL BID 7 Days #15 g 09/10/20 ondansetron HCl 4 mg tablet 4 mg PO Q8H PRN #14 tab 10/06/20 (Zofran) doxycycline monohydrate 100 mg 100 mg PO BID #14 cap 01/14/21 capsule benzonatate 100 mg capsule 100 mg PO TID PRN #15 cap 02/10/21 (Tessalstella Perllaureano) naproxen 500 mg tablet 500 mg PO BID PRN #20 tab 02/10/21 cephalexin 500 mg capsule 500 mg PO QID #28 cap 02/25/21 fluconazole 150 mg tablet 150 mg PO Q3D #2 tab 02/25/21 (Diflucan) omeprazole 40 mg capsule,delayed 40 mg PO DAILY 56 Days #56 cap 08/23/21 release Allergies Allergy/AdvReac Type Severity Reaction Status Date / Time No Known Allergies Allergy Verified 02/23/21 21:58 [No Known Allergies*] Review of Systems Review of Systems: Constitutional: No Fever, No Chills ENT/Mouth: No sore throat, No Rhinorrhea, No Swallowing Difficulty Cardiovascular: No Chest Pain, No SOB Respiratory: No Cough, No Sputum, No Wheezing, No dyspnea Gastrointestinal: + Nausea, + Vomiting, No Diarrhea, + abdominal Pain, No Hematochezia, No Melena Genitourinary: No Dysuria, No Urinary Frequency, No Hematuria Musculoskeletal: No joint pain, No Myalgias Neuro: No Weakness, No Dizziness, No Headache Gastrointestinal: Gastrointestinal: Reports nausea PMFSH Past Medical History Attestation statement: The following information was validated with the patient. Medical History Asthma GERD (gastroesophageal reflux disease) No known health problems Surgical History Hx of cholecystectomy Social History Social History Alcohol intake: never Advance Directives: No Advance Directives Information Provided: No Patient : No Physical Exam Vital Signs: Vital Signs: Last Vital Signs Temp 98 F 08/23/21 09:59 Pulse 78 08/23/21 09:59 Resp 16 08/23/21 09:59 BP 105/74 08/23/21 09:59 Pulse Ox 99 08/23/21 09:59 BMI result Body Mass Index 20.8 Appearance: Alert. Oriented X3. No acute distress. Eyes: Pupils equal, round and reactive to light. ENT: Pharynx normal. Neck: Normal inspection. Neck supple. CVS: Normal heart rate and rhythm. Pulses normal. Respiratory: No respiratory distress. Breath sounds normal. Abdomen: Soft with mild epigastric tenderness, no rebound or guarding. normal +BS x4 Skin: Skin warm and dry. Normal skin color. Normal skin turgor. No rashes. Extremities: No lower extremity edema. Neuro: Oriented X 3.nonfocal Course Course Course Narrative: 21-year-old female with history of GERD, status post cholecystectomy presents to the ER with ?acid reflux flare up? after drinking alcohol and eating spicy food last night. She is refusing oral medications and requesting an IV with IV fluids and IV medications for her symptoms. No need to check labs at this time her symptoms are consistent with GERD and possible hangover. IV fluids, Zofran and Prilosec ordered. Will reassess. Will check test Reevaluation(s) Reevaluation #1: UA is negative for infection test negative. She is feeling better after medications. She is now hungry and would like to go home. She was advised on dietary modifications to help with GERD. Omeprazole was sent to her pharmacy. She will follow-up with her primary care doctor as needed. Procedures EJ/Peripheral Line Arm L: Time Out Performed: No Skin Cleansed in Sterile Fashion: Yes Size (gauge): 20 IV Secured and Dressing Applied: Yes Patient Tolerated Procedure: well MDM - Nausea/Vomiting/Diarrhea Lab Data Labs: Lab Results 08/23/21 08/23/21 Range/Units 10:52 10:52 Urine Color YELLOW Urine Appearance CLOUDY Urine pH 8.5 H (5.0-8.0) Ur Specific [place] 1.010 (1.005-1.025) Urine Protein 2+ H (NEG-TRACE) MG/DL Urine Glucose (UA) NEG (NEG) MG/DL Urine Ketones NEG (NEG) MG/DL Urine Blood 3+ H (NEG) Urine Nitrite NEG (NEG) Ur Leukocyte Esterase TRACE H (NEG) Urine RBC 50-75 H (0) /HPF Urine WBC 0-2 (0-4) /HPF Ur Squamous Epith Cells 2+ /LPF Urine Bacteria TRACE /LPF Urine Mucus 2+ /LPF Urine Test NEGATIVE (NEGATIVE) Critical Care Time Critical Care Time Critical Care Time: No Discharge Plan Discharge Clinical Impression: GERD (gastroesophageal reflux disease) Patient Disposition: Home, Self-Care Instructions: Diet for Stomach Ulcers and Gastritis (ED), Gastroesophageal Reflux Disease (DC) Additional Instructions: Recommend taking the prescribed antacid medication every morning for the next several weeks. Recommend modifying her diet to exclude spicy and acidic foods and limit your alcohol intake. With medications like NSAIDs which include ibuprofen, Motrin, Advil, Aleve. This can irritate the stomach lining. Follow-up with your regular doctor as needed. If you develop new or worsening symptoms call 911 or come back to the ER for further evaluation. Prescriptions: New omeprazole 40 mg capsule,delayed release(DR/EC) 40 mg PO DAILY 56 Days Qty: 56 0RF No Action metronidazole [Flagyl] 500 mg tablet 500 mg PO BID 7 Days Qty: 14 0RF fluconazole [Diflucan] 150 mg tablet 150 mg PO Q3D Qty: 2 0RF Rx Instructions: Take 1 tablet today repeat if symptoms persist in 72 hours. ondansetron HCl [Zofran] 4 mg tablet 4 mg PO Q8H PRN (Reason: nausea and vomiting) Qty: 14 0RF doxycycline monohydrate 100 mg capsule 100 mg PO BID Qty: 14 0RF naproxen 500 mg tablet 500 mg PO BID PRN (Reason: pain) Qty: 20 0RF benzonatate [Tessalon Perles] 100 mg capsule 100 mg PO TID PRN (Reason: cough) Qty: 15 0RF fluconazole [Diflucan] 150 mg tablet 150 mg PO Q3D Qty: 2 0RF Rx Instructions: may repeat second dose 72 hrs after first dose if symptoms persist cephalexin 500 mg capsule 500 mg PO QID Qty: 28 0RF amoxicillin 500 mg tablet 500 mg PO BID Qty: 20 0RF ondansetron 4 mg tablet,disintegrating 4 mg PO Q8H PRN (Reason: nausea and vomiting) Qty: 20 0RF cephalexin 500 mg capsule 500 mg PO BID 7 Days Qty: 14 0RF mupirocin 2 % ointment 1 appl topical BID 7 Days Qty: 15 0RF
[2021-08-23] MEDS: ondansetron HCL 4 MG/2 ML VIAL IVPUSH (11:27)
[2021-08-23] MEDS: Pantoprazole Sodium 40 MG/10 ML VIAL IVPUSH (11:27)
[2021-08-23] MEDS: 0.9 % Sodium Chloride 1,000 ML 999 ML IVCONT (11:27)
== END 2021-08-23 12:50 | disposition home or self-care (01) ==
PROVIDERS: Physician Assistant; Emergency Provider Emergency Medicine Emergency Medical Services
DX: K21.9 Gastro-esophageal reflux disease without esophagitis (principal); Z90.49 Acquired absence of other specified parts of digestive tract
CPT/HCPCS: 36569; 81001; 81003; 81025; 87086; 96361; 96374; 96375; 99284; J2405

== ENCOUNTER 2021-09-05 11:08 | Emergency (ER) | payer MEDICAID, SELFPAY ==
[2021-09-05 11:37] VITALS: BP 121/84; PULSE 109; RESP 16; TEMP 37.5; O2SAT 100; BMI 20.6
[2021-09-05 11:52] LABS: MANUAL DIFF FLAG NO
[2021-09-05 11:53] LABS: Basophils Percent Auto 0.2 % (0-2); Hematocrit 42.6 % (37.0-47.0); Hemoglobin 14.4 g/dl (12.0-16.0); Imm Gran Abs Auto 0.03 X10*3/uL (0.00-0.03); Imm Gran Pct Auto 0.3 % (0.0-0.4); Lymphocytes Absolute Auto 0.9 X10*3/uL (1.2-4.9); Lymphocytes Percent Auto 7.5 % (20-40); Mean Corpuscular HGB Conc 33.8 g/dl (31.0-35.0); Mean Corpuscular Hemoglobin 29.2 pg (27.0-33.0); Mean Corpuscular Volume 86.4 fL (80.0-98.0); Mean Platelet Volume 10.5 fL (9.4-12.3); Monocytes Absolute Auto 0.6 X10*3/uL (0.1-1.2); Monocytes Percent Auto 4.9 % (2-11); Neutrophils Absolute Auto 10.4 x10*3/uL (2.0-8.3); Neutrophils Percent Auto 87.1 % (45-73); Platelet Count 217 X10*3/uL (160-400); Red Blood Count 4.93 X10*6/uL (4.20-5.50); Red Cell Distribution Width 12.4 % (11.0-16.0); White Blood Count 11.9 X10*3/uL (4.8-10.8)
[2021-09-05 12:11] LABS: Strep A Nucleic Acid Negative (Negative)
[2021-09-05 12:15] LABS: Anion Gap 15 (12-20); Blood Urea Nitrogen 8 mg/dL (9-16); Calcium 9.9 mg/dL (8.4-10.2); Carbon Dioxide 24 mmol/L (22-29); Chloride 100 mmol/L (96-108); Creatinine Clr Calc Pharmacy 105.3; Estimated Glomerular Filt Rate > 60; Glucose Random 107 mg/dL (60-115); Potassium 4.2 mmol/L (3.3-5.1); Sodium 135 mmol/L (135-145)
== END 2021-09-05 16:59 | disposition left against medical advice (07) ==
PROVIDERS: Emergency Provider Emergency Medicine
DX: R10.9 Unspecified abdominal pain (principal); J02.9 Acute pharyngitis, unspecified
CPT/HCPCS: 36415; 80048; 85025; 87651; 99282; 99283

== ENCOUNTER 2021-09-05 20:08 | Emergency (ER) | payer MEDICAID, SELFPAY ==
[2021-09-05 20:41] VITALS: BP 114/67; PULSE 119; RESP 18; TEMP 37.2; O2SAT 100; BMI 20.6
[2021-09-05 21:02] LABS: COVID-19 Test Negative (Negative)
[2021-09-05 21:18] LABS: IDNOW Serial# 08D9AD1C; Strep A Nucleic Acid Negative (Negative)
--- NOTE | 2021-09-05 21:23 | ED.GENADULT ---
HPI - General Adult General Chief complaint: Fever Stated complaint: Fever/Bodyaches Time Seen by Provider: 09/05/21 21:20 History of Present Illness HPI narrative: Patient is a 21-year-old female presents today with having some sore throat generalized body aches subjective fever pain on urination patient does not think she is no coughing or congestion. + immunized for COVID. Patient denies any diaphoresis. Denies patient complaining of some sore throat as well. Generalized malaise. No diarrhea. No rash. Patient from home. Related Data Previous Rx's Medication Instructions Recorded amoxicillin 500 mg tablet 500 mg PO BID #20 tab 05/15/20 ondansetron 4 mg disintegrating 4 mg PO Q8H PRN #20 tab 05/21/20 tablet fluconazole 150 mg tablet 150 mg PO Q3D #2 tab 08/04/20 (Diflucan) metronidazole 500 mg tablet 500 mg PO BID 7 Days #14 tab 08/04/20 (Flagyl) cephalexin 500 mg capsule 500 mg PO BID 7 Days #14 cap 09/10/20 mupirocin 2 % topical ointment 1 appl TOPICAL BID 7 Days #15 g 09/10/20 ondansetron HCl 4 mg tablet 4 mg PO Q8H PRN #14 tab 10/06/20 (Zofran) doxycycline monohydrate 100 mg 100 mg PO BID #14 cap 01/14/21 capsule benzonatate 100 mg capsule 100 mg PO TID PRN #15 cap 02/10/21 (Tessalon Perles) naproxen 500 mg tablet 500 mg PO BID PRN #20 tab 02/10/21 cephalexin 500 mg capsule 500 mg PO QID #28 cap 02/25/21 fluconazole 150 mg tablet 150 mg PO Q3D #2 tab 02/25/21 (Diflucan) omeprazole 40 mg capsule,delayed 40 mg PO DAILY 56 Days #56 cap 08/23/21 release Allergies Allergy/AdvReac Type Severity Reaction Status Date / Time No Known Allergies Allergy Verified 09/05/21 11:37 [No Known Allergies*] Review of Systems Review of Systems: Positive subjective fever positive generalized malaise. Positive sore throat Yes all other systems are reviewed and are negative PMFSH Past Medical History Attestation statement: The following information was validated with the patient. Medical History Asthma GERD (gastroesophageal reflux disease) No known health problems Surgical History Hx of cholecystectomy Social History Social History Alcohol intake: never Advance Directives: No Advance Directives Information Provided: No Physical Exam ED Vital Signs: Vital Signs - 24 hr 09/05/21 20:41 09/05/21 23:16 Temperature 98.9 F 97.0 F Pulse Rate 119 H 65 Respiratory Rate 18 16 Blood Pressure 114/67 100/64 Pulse Oximetry 100 99 BMI result Body Mass Index 20.6 Appearance: Alert. Oriented X3. No acute distress. Eyes: Pupils equal, round and reactive to light. ENT: Pharynx normal. Neck: Normal inspection. Neck supple. No lymph nodes noted. No crepitus CVS: Normal heart rate and rhythm. Pulses normal. Normal S1 and S2 Respiratory: No respiratory distress. Breath sounds normal. No Wheezing. No rales Abdomen: Soft and nontender. No rigidity. No distention. good BS x4 Skin: Skin warm and dry. Normal skin color. Normal skin turgor. Extremities: No lower extremity edema. Neurovascular intact to all extremities. No Lacerations. No Rash Neuro: Oriented X 3. No motor deficit. No sensory deficit. Moving all extermities. No slurred speech Medical Decision Making MDM Narrative Medical decision making narrative: Patient's strep was negative. COVID test was negative. Urine showed no gross signs of infection. U preg was grossly negative no evidence for ectopic. Question back pain. Will have patient take some Motrin rest. Likely viral syndrome currently in stable condition Lab Data Labs: Lab Results 09/05/21 09/05/21 09/05/21 Range/Units 20:44 21:04 21:30 Urine Color YELLOW Urine Appearance HAZY Urine pH 6.0 (5.0-8.0) Ur Specific [place] 1.020 (1.005-1.025) Urine Protein 1+ H (NEG-TRACE) MG/DL Urine Glucose (UA) NEG (NEG) MG/DL Urine Ketones 5 (NEG) MG/DL Urine Blood NEG (NEG) Urine Nitrite NEG (NEG) Ur Leukocyte Esterase NEG (NEG) Urine RBC 0-2 (0) /HPF Urine WBC 0 (0-4) /HPF Ur Squamous Epith Cells 1+ /LPF Urine Bacteria 1+ /LPF Urine Mucus 1+ /LPF Urine Test (NEGATIVE) COVID-19 (BRIAN) Negative (Negative) COVID-19 Clin Com See Note S. pyogenes GrpA MAY Negative (Negative) 09/05/21 Range/Units 21:30 Urine Color Urine Appearance Urine pH (5.0-8.0) Ur Specific [place] (1.005-1.025) Urine Protein (NEG-TRACE) MG/DL Urine Glucose (UA) (NEG) MG/DL Urine Ketones (NEG) MG/DL Urine Blood (NEG) Urine Nitrite (NEG) Ur Leukocyte Esterase (NEG) Urine RBC (0) /HPF Urine WBC (0-4) /HPF Ur Squamous Epith Cells /LPF Urine Bacteria /LPF Urine Mucus /LPF Urine Test NEGATIVE (NEGATIVE) COVID- (BRIAN) (Negative) COVID- Clin Com S. pyogenes GrpA MAY (Negative) Discharge Plan Discharge Clinical Impression: Acute viral syndrome, Back pain Patient Disposition: Home, Self-Care Prescriptions: No Action metronidazole [Flagyl] 500 mg tablet 500 mg PO BID 7 Days Qty: 14 0RF fluconazole [Diflucan] 150 mg tablet 150 mg PO Q3D Qty: 2 0RF Rx Instructions: Take 1 tablet today repeat if symptoms persist in 72 hours. ondansetron HCl [Zofran] 4 mg tablet 4 mg PO Q8H PRN (Reason: nausea and vomiting) Qty: 14 0RF doxycycline monohydrate 100 mg capsule 100 mg PO BID Qty: 14 0RF naproxen 500 mg tablet 500 mg PO BID PRN (Reason: pain) Qty: 20 0RF benzonatate [Tessalon Perles] 100 mg capsule 100 mg PO TID PRN (Reason: cough) Qty: 15 0RF fluconazole [Diflucan] 150 mg tablet 150 mg PO Q3D Qty: 2 0RF Rx Instructions: may repeat second dose 72 hrs after first dose if symptoms persist cephalexin 500 mg capsule 500 mg PO QID Qty: 28 0RF amoxicillin 500 mg tablet 500 mg PO BID Qty: 20 0RF ondansetron 4 mg tablet,disintegrating 4 mg PO Q8H PRN (Reason: nausea and vomiting) Qty: 20 0RF cephalexin 500 mg capsule 500 mg PO BID 7 Days Qty: 14 0RF mupirocin 2 % ointment 1 appl topical BID 7 Days Qty: 15 0RF omeprazole 40 mg capsule,delayed release(DR/EC) 40 mg PO DAILY 56 Days Qty: 56 0RF Referrals: Physician,None [Primary Care Provider] - 2 days
[2021-09-05 21:37] LABS: Appearance Urine HAZY; Color Urine YELLOW; Glucose Urine UA NEG (NEG); Leukocyte Esterase Urine NEG (NEG); Nitrite Urine NEG (NEG); UACC Culture Trigger NO; Urine Blood NEG (NEG); Urine Ketones 5 MG/DL (NEG); Urine Protein 1+ MG/DL (NEG-TRACE)
[2021-09-05 21:39] LABS: UPreg QC Valid YES; Urine Pregnancy NEGATIVE (NEGATIVE)
[2021-09-05 21:44] LABS: Bacteria Urine 1+ /LPF; Mucus Urine 1+ /LPF; RBC Urine 0-2 /HPF (0); Squamous Epithelial Cell Urine 1+ /LPF; WBC Urine 0 /HPF (0-4)
[2021-09-05 23:16] VITALS: BP 100/64; PULSE 65; RESP 16; TEMP 36.1; O2SAT 99
[2021-09-05] MEDS: Acetaminophen 325 MG TABLET 650 MG PO (23:39)
== END 2021-09-05 23:43 | disposition home or self-care (01) ==
PROVIDERS: Emergency Provider Emergency Medicine Emergency Medical Services
DX: B34.9 Viral infection, unspecified (principal); M54.9 Dorsalgia, unspecified; Z20.822 Contact with and (suspected) exposure to COVID-19; M79.10 Myalgia, unspecified site
CPT/HCPCS: 36415; 81001; 81025; 87635; 87651; 99283; 99284

== ENCOUNTER 2021-10-15 08:45 | Emergency (ER) | payer OTHER, SELFPAY ==
--- NOTE | ~2021-10-15 | CT_ITS ---
EXAMINATION: CHEST X-RAY. CT ABDOMEN PELVIS WITHOUT CONTRAST. CLINICAL INFORMATION: Fever and cough. Abdominal pain. COMPARISON: Chest 02/10/2021. TECHNIQUE: Chest one view. 5 mm thin axial and reformatted 3 mm thin sagittal coronal images of abdomen and pelvis were obtained without contrast. DLP 371 FINDINGS: Chest: Both lungs are fairly well-expanded and clear of acute pneumonic process. The heart size and pulmonary vascularity is normal. No gross bony abnormality seen. There are bilateral nipple rings seen. Abdomen and pelvis: Lung bases: Both lung bases are clear. The heart size is normal. Liver, ducts and gallbladder: The liver is normal size contour and density. No focal lesion or intrahepatic ductal dilatation seen. The gallbladder has been surgically removed. Spleen: Unremarkable. Pancreas: Unremarkable. Adrenal glands: Unremarkable. Kidneys and ureters: Both kidneys are normal size, shape and position. No radiopaque renal calculi or hydronephrosis seen. Lymphovascular structures: The abdominal aorta is normal caliber. No abnormal reticular lymph nodes or mass seen. GI tract: There is scattered stool and gas seen throughout the colon without distention. The small bowel loops are normal caliber. Appendix is not seen well. Abdominal wall: Unremarkable. Pelvis: The uterus is anteverted and appears unremarkable. Osseous structures: There is no aggressive lytic or sclerotic process seen. CT/CT abdomen pelvis wo con IMPRESSION: Unremarkable chest x-ray. There is no acute intra-abdominal process seen. There is fluid-filled physiological free fluid in the pelvis. Mild constipation. Cholecystectomy.
[2021-10-15 08:52] VITALS: BP 110/72; PULSE 88; O2SAT 100
[2021-10-15 09:42] VITALS: BP 115/85; PULSE 72; RESP 18; TEMP 37; O2SAT 100; BMI 20.7
--- NOTE | 2021-10-15 10:12 | ED.NAVMDI ---
HPI - Nausea/Vomiting/Diarrhea General Chief complaint: Nausea/Vomiting/Diarrhea Stated complaint: NAUSEA,GENERAL WEAKNESS PER EMS Time Seen by Provider: 10/15/21 10:01 Source: patient Mode of arrival: ambulatory Limitations: no limitations History of Present Illness HPI Narrative: 21-year-old female came in for evaluation of nausea, vomiting. Started with generalized body ache, runny nose, subjective fever, patient's boyfriend was sick recently with similar symptoms, then patient started to have nausea and vomiting, patient also noticed some blood streaks in vomiting, patient been complaining of epigastric pain. Patient used antibiotic (left over) for her sore throat for the last 2 days. Related Data Previous Rx's Medication Instructions Recorded amoxicillin 500 mg tablet 500 mg PO BID #20 tab 05/15/20 ondansetron 4 mg disintegrating 4 mg PO Q8H PRN #20 tab 05/21/20 tablet fluconazole 150 mg tablet 150 mg PO Q3D #2 tab 08/04/20 (Diflucan) metronidazole 500 mg tablet 500 mg PO BID 7 Days #14 tab 08/04/20 (Flagyl) cephalexin 500 mg capsule 500 mg PO BID 7 Days #14 cap 09/10/20 mupirocin 2 % topical ointment 1 appl TOPICAL BID 7 Days #15 g 09/10/20 ondansetron HCl 4 mg tablet 4 mg PO Q8H PRN #14 tab 10/06/20 (Zofran) doxycycline monohydrate 100 mg 100 mg PO BID #14 cap 01/14/21 capsule benzonatate 100 mg capsule 100 mg PO TID PRN #15 cap 02/10/21 (Tessalon Perles) naproxen 500 mg tablet 500 mg PO BID PRN #20 tab 02/10/21 cephalexin 500 mg capsule 500 mg PO QID #28 cap 02/25/21 fluconazole 150 mg tablet 150 mg PO Q3D #2 tab 02/25/21 (Diflucan) omeprazole 40 mg capsule,delayed 40 mg PO DAILY 56 Days #56 cap 08/23/21 release amoxicillin 500 mg tablet 500 mg PO Q12H #20 tab 10/15/21 Allergies Allergy/AdvReac Type Severity Reaction Status Date / Time No Known Allergies Allergy Verified 10/15/21 09:42 [No Known Allergies*] Review of Systems Review of Systems: All other systems are reviewed and are negative Constitutional: Reports as per HPI and Reports no additional constitutional complaints Eyes: Reports as per HPI and Reports no additional eye complaints Reports system reviewed and no additional complaints, except as documented Cardiovascular: Reports as per HPI and Reports no additional cardiovascular complaints Respiratory: Reports as per HPI and Reports no additional respiratory complaints Gastrointestinal: Reports as per HPI and Reports no additional gastrointestinal complaints Genitourinary: Reports no additional female genitourinary complaints Musculoskeletal: Reports no additional musculoskeletal complaints Skin/Breast: Reports system reviewed and no additional complaints, except as docu Psychiatric: Reports no additional psychiatric complaints Endocrine: Reports no additional endocrine complaints Hematologic/Lymphatic: Reports no additional hematologic/lymphatic complaints Allergic/Immunologic: Reports no additional allergic/immunologic complaints Reports system reviewed and no additional complaints, except as documented and Reports Abnormal speech present [facility] Past Medical History Medical History Asthma GERD (gastroesophageal reflux disease) No known health problems Surgical History Hx of cholecystectomy Social History Social History Alcohol intake: never Advance Directives: No Advance Directives Information Provided: No Physical Exam Vital Signs: Vital Signs: Last Vital Signs Temp 101.1 F H 10/15/21 14:03 Pulse 89 10/15/21 14:03 Resp 20 10/15/21 14:03 BP 114/73 10/15/21 14:03 Pulse Ox 98 10/15/21 14:03 BMI result Body Mass Index 20.7 Vital signs have been reviewed as appeared to be correct. Blood pressure normal. Heart rate normal. Respiration rate normal. Temperature normal. Oxygen saturation normal. Appearance: Alert. Oriented X3. No acute distress. Head: Normal external exam. Normocephalic. Atraumatic. No [place] signs noted. No raccoon eyes noted Eyes: PERRLA. EOMI. Conjunctiva and sclera normal. Eyelids normal. ENT: TM's Normal. Tonsillar enlargement, white exudate, midline. Moist mucous membranes. No trismus noted. No drooling noted. No muffled voice noted. Neck: Normal inspection. Neck supple. FROM. No adenopathy. Thyroid Normal. No meningeal signs. No neck mass noted. CVS: Normal heart rate and rhythm. Heart sound normal. No murmurs noted. Pulses normal throughout. Respiratory: No respiratory distress. Painless inspiration. Breath sounds normal. No wheezes/rales/rhonchi noted. Chest nontender. No accessory muscle usage noted or decreased air movement noted. Abdomen: Soft and nontender. Bowel sounds normal in all 4 quadrants. No distention noted. No organomegaly noted. No visible injury noted. Back: No CVA tenderness. Full range of motion noted. Skin: Skin warm and dry. Normal skin color. Normal skin turgor. No rashes/lesions/lacerations noted. Extremities: No lower extremity edema. Extremities exhibit normal range of motion. Extremities nontender. Neuro: Oriented X 3. Cranial nerve exam: II-XII are grossly intact No motor deficit. No sensory deficit. Reflexes normal. Course Course Course Narrative: Assessment and plan. 21-year-old female came in for evaluation of sore throat and fever, patient took antibiotic for 2 days for her throat patient is testing negative for rapid strep/mono/flu/COVID. Patient also been complaining of abdominal pain has unremarkable CT and abdominal labs. Patient received IV fluid and IV antiemetic medication with improvement. MDM - Nausea/Vomiting/Diarrhea Lab Data Attestation: I reviewed the patient's lab results. Result diagrams: 10/15/21 10:29 10/15/21 10:29 Labs: Lab Results 10/15/21 10/15/21 10/15/21 Range/Units 09:47 09:48 09:48 WBC (4.8-10.8) X10*3/uL RBC (4.20-5.50) X10*6/uL Hgb (12.0-16.0) g/dl Hct (37.0-47.0) % MCV (80.0-98.0) fL MCH (27.0-33.0) pg MCHC (31.0-35.0) g/dl RDW (11.0-16.0) % Plt Count (160-400) X10*3/uL MPV (9.4-12.3) fL Immature Gran % (Auto) (0.0-0.4) % Neut % (Auto) (45-73) % Lymph % (Auto) (20-40) % [place] % (Auto) (2-11) % Eos % (Auto) (0-4) % Baso % (Auto) (0-2) % Lymph # (Auto) (1.2-4.9) X10*3/uL [place] # (Auto) (0.1-1.2) X10*3/uL Eos # (Auto) (0.0-0.4) X10*3/uL Baso # (Auto) (0.0-0.2) X10*3/uL Abs Immat Gran (auto) (0.00-0.03) X10*3/uL Absolute Neuts (auto) (2.0-8.3) x10*3/uL Absolute Nucleated RBC (0.0-0.012) X10*3/uL Nucleated RBC % (auto) (0.0-0.2) /100WBC Sodium (135-145) mmol/L Potassium (3.3-5.1) mmol/L Chloride (96-108) mmol/L Carbon Dioxide (22-29) mmol/L Anion Gap (12-20) BUN (9-16) mg/dL Creatinine (0.5-1.4) mg/dL Estim Creat Clear Calc Estimated GFR Random Glucose (60-115) mg/dL Calcium (8.4-10.2) mg/dL Total Bilirubin (0.0-1.0) mg/dL Direct Bilirubin (0.0-0.5) mg/dL AST (5-31) U/L ALT (0-31) U/L Alkaline Phosphatase (39-117) U/L Total Protein (6.5-8.0) g/dL Albumin (3.5-5.0) g/dL Lipase (8-78) U/L Urine Color Urine Appearance Urine pH (5.0-8.0) Ur Specific [place] (1.005-1.025) Urine Protein (NEG-TRACE) MG/DL Urine Glucose (UA) (NEG) MG/DL Urine Ketones (NEG) MG/DL Urine Blood (NEG) Urine Nitrite (NEG) Ur Leukocyte Esterase (NEG) Urine RBC (0) /HPF Urine WBC (0-4) /HPF Ur Squamous Epith Cells /LPF Urine Bacteria /LPF Urine Mucus /LPF Urine Test (NEGATIVE) COVID-19 (BRIAN) Negative (Negative) COVID-19 Clin Com See Note Monoscreen (Negative) Influenza Type A (MAY) Negative (Negative) Influenza Type B (MAY) Negative (Negative) Influenza A & B Note See Note S. pyogenes GrpA MAY Negative (Negative) 10/15/21 10/15/21 10/15/21 Range/Units 10:29 10:29 10:29 WBC 12.5 H (4.8-10.8) X10*3/uL RBC 4.64 (4.20-5.50) X10*6/uL Hgb 13.6 (12.0-16.0) g/dl Hct 39.3 (37.0-47.0) % MCV 84.7 (80.0-98.0) fL MCH 29.3 (27.0-33.0) pg MCHC 34.6 (31.0-35.0) g/dl RDW 13.2 (11.0-16.0) % Plt Count 228 (160-400) X10*3/uL MPV 10.5 (9.4-12.3) fL Immature Gran % (Auto) 0.2 (0.0-0.4) % Neut % (Auto) 83.6 H (45-73) % Lymph % (Auto) 10.7 L (20-40) % [place] % (Auto) 5.3 (2-11) % Eos % (Auto) 0.0 (0-4) % Baso % (Auto) 0.2 (0-2) % Lymph # (Auto) 1.3 (1.2-4.9) X10*3/uL [place] # (Auto) 0.7 (0.1-1.2) X10*3/uL Eos # (Auto) 0.0 (0.0-0.4) X10*3/uL Baso # (Auto) 0.0 (0.0-0.2) X10*3/uL Abs Immat Gran (auto) 0.03 (0.00-0.03) X10*3/uL Absolute Neuts (auto) 10.5 H (2.0-8.3) x10*3/uL Absolute Nucleated RBC 0.000 (0.0-0.012) X10*3/uL Nucleated RBC % (auto) 0.0 (0.0-0.2) /100WBC Sodium 134 L (135-145) mmol/L Potassium 3.8 (3.3-5.1) mmol/L Chloride 100 (96-108) mmol/L Carbon Dioxide 23 (22-29) mmol/L Anion Gap 15 (12-20) BUN 6 L (9-16) mg/dL Creatinine 0.73 (0.5-1.4) mg/dL Estim Creat Clear Calc 108.7 Estimated GFR > 60 Random Glucose 113 (60-115) mg/dL Calcium 9.7 (8.4-10.2) mg/dL Total Bilirubin 0.6 (0.0-1.0) mg/dL Direct Bilirubin 0.3 (0.0-0.5) mg/dL AST 24 D (5-31) U/L ALT 26 (0-31) U/L Alkaline Phosphatase 105 D (39-117) U/L Total Protein 7.8 (6.5-8.0) g/dL Albumin 4.5 (3.5-5.0) g/dL Lipase 39 (8-78) U/L Urine Color YELLOW Urine Appearance CLEAR Urine pH 5.5 (5.0-8.0) Ur Specific [place] 1.025 (1.005-1.025) Urine Protein 1+ H (NEG-TRACE) MG/DL Urine Glucose (UA) NEG (NEG) MG/DL Urine Ketones 5 (NEG) MG/DL Urine Blood NEG (NEG) Urine Nitrite NEG (NEG) Ur Leukocyte Esterase NEG (NEG) Urine RBC 0 (0) /HPF Urine WBC 0-2 (0-4) /HPF Ur Squamous Epith Cells 2+ /LPF Urine Bacteria TRACE /LPF Urine Mucus 2+ /LPF Urine Test (NEGATIVE) COVID-19 (BRIAN) (Negative) COVID-19 Clin Com Monoscreen (Negative) Influenza Type A (MAY) (Negative) Influenza Type B (MAY) (Negative) Influenza A & B Note S. pyogenes GrpA MAY (Negative) 10/15/21 10/15/21 Range/Units 10:29 14:00 WBC (4.8-10.8) X10*3/uL RBC (4.20-5.50) X10*6/uL Hgb (12.0-16.0) g/dl Hct (37.0-47.0) % MCV (80.0-98.0) fL MCH (27.0-33.0) pg MCHC (31.0-35.0) g/dl RDW (11.0-16.0) % Plt Count (160-400) X10*3/uL MPV (9.4-12.3) fL Immature Gran % (Auto) (0.0-0.4) % Neut % (Auto) (45-73) % Lymph % (Auto) (20-40) % [place] % (Auto) (2-11) % Eos % (Auto) (0-4) % Baso % (Auto) (0-2) % Lymph # (Auto) (1.2-4.9) X10*3/uL [place] # (Auto) (0.1-1.2) X10*3/uL Eos # (Auto) (0.0-0.4) X10*3/uL Baso # (Auto) (0.0-0.2) X10*3/uL Abs Immat Gran (auto) (0.00-0.03) X10*3/uL Absolute Neuts (auto) (2.0-8.3) x10*3/uL Absolute Nucleated RBC (0.0-0.012) X10*3/uL Nucleated RBC % (auto) (0.0-0.2) /100WBC Sodium (135-145) mmol/L Potassium (3.3-5.1) mmol/L Chloride (96-108) mmol/L Carbon Dioxide (22-29) mmol/L Anion Gap (12-20) BUN (9-16) mg/dL Creatinine (0.5-1.4) mg/dL Estim Creat Clear Calc Estimated GFR Random Glucose (60-115) mg/dL Calcium (8.4-10.2) mg/dL Total Bilirubin (0.0-1.0) mg/dL Direct Bilirubin (0.0-0.5) mg/dL AST (5-31) U/L ALT (0-31) U/L Alkaline Phosphatase (39-117) U/L Total Protein (6.5-8.0) g/dL Albumin (3.5-5.0) g/dL Lipase (8-78) U/L Urine Color Urine Appearance Urine pH (5.0-8.0) Ur Specific [place] (1.005-1.025) Urine Protein (NEG-TRACE) MG/DL Urine Glucose (UA) (NEG) MG/DL Urine Ketones (NEG) MG/DL Urine Blood (NEG) Urine Nitrite (NEG) Ur Leukocyte Esterase (NEG) Urine RBC (0) /HPF Urine WBC (0-4) /HPF Ur Squamous Epith Cells /LPF Urine Bacteria /LPF Urine Mucus /LPF Urine Test NEGATIVE (NEGATIVE) COVID-19 (BRIAN) (Negative) COVID-19 Clin Com Monoscreen Negative (Negative) Influenza Type A (MAY) (Negative) Influenza Type B (MAY) (Negative) Influenza A & B Note S. pyogenes GrpA MAY (Negative) Imaging Data CT abdomen pelvis: Attestation: I personally reviewed and interpreted this imaging study as follows: Radiologist's impression: Unremarkable chest x-ray. ? There is no acute intra-abdominal process seen. There is fluid-filled physiological free fluid in the pelvis. ? Mild constipation. ? Cholecystectomy.? Chest x-ray: Attestation: I personally reviewed and interpreted this imaging study as follows: Radiologist's impression: No acute pathology. Discharge Plan Discharge Clinical Impression: Pharyngitis, Gastroenteritis Patient Disposition: Home, Self-Care Instructions: Pharyngitis (ED) Prescriptions: New amoxicillin 500 mg tablet 500 mg PO Q12H Qty: 20 0RF No Action metronidazole [Flagyl] 500 mg tablet 500 mg PO BID 7 Days Qty: 14 0RF fluconazole [Diflucan] 150 mg tablet 150 mg PO Q3D Qty: 2 0RF Rx Instructions: Take 1 tablet today repeat if symptoms persist in 72 hours. ondansetron HCl [Zofran] 4 mg tablet 4 mg PO Q8H PRN (Reason: nausea and vomiting) Qty: 14 0RF doxycycline monohydrate 100 mg capsule 100 mg PO BID Qty: 14 0RF naproxen 500 mg tablet 500 mg PO BID PRN (Reason: pain) Qty: 20 0RF benzonatate [Tessalon Perles] 100 mg capsule 100 mg PO TID PRN (Reason: cough) Qty: 15 0RF fluconazole [Diflucan] 150 mg tablet 150 mg PO Q3D Qty: 2 0RF Rx Instructions: may repeat second dose 72 hrs after first dose if symptoms persist cephalexin 500 mg capsule 500 mg PO QID Qty: 28 0RF amoxicillin 500 mg tablet 500 mg PO BID Qty: 20 0RF ondansetron 4 mg tablet,disintegrating 4 mg PO Q8H PRN (Reason: nausea and vomiting) Qty: 20 0RF cephalexin 500 mg capsule 500 mg PO BID 7 Days Qty: 14 0RF mupirocin 2 % ointment 1 appl topical BID 7 Days Qty: 15 0RF omeprazole 40 mg capsule,delayed release(DR/EC) 40 mg PO DAILY 56 Days Qty: 56 0RF Referrals: Physician,None [Primary Care Provider] - 2 days Stand Alone Forms: Work/School Release
[2021-10-15 10:16] VITALS: BP 122/74; PULSE 78; RESP 14; TEMP 36.7; O2SAT 100
[2021-10-15 10:21] LABS: COVID-19 Test Negative (Negative)
[2021-10-15] MEDS: 0.9 % Sodium Chloride 1,000 ML 999 ML IV (10:31)
[2021-10-15 10:34] LABS: MANUAL DIFF FLAG NO
[2021-10-15 10:38] LABS: Influenza A Negative (Negative); Influenza B2 Negative (Negative)
[2021-10-15 10:38] LABS: Basophils Percent Auto 0.2 % (0-2); Hematocrit 39.3 % (37.0-47.0); Hemoglobin 13.6 g/dl (12.0-16.0); Imm Gran Abs Auto 0.03 X10*3/uL (0.00-0.03); Imm Gran Pct Auto 0.2 % (0.0-0.4); Lymphocytes Absolute Auto 1.3 X10*3/uL (1.2-4.9); Lymphocytes Percent Auto 10.7 % (20-40); Mean Corpuscular HGB Conc 34.6 g/dl (31.0-35.0); Mean Corpuscular Hemoglobin 29.3 pg (27.0-33.0); Mean Corpuscular Volume 84.7 fL (80.0-98.0); Mean Platelet Volume 10.5 fL (9.4-12.3); Monocytes Absolute Auto 0.7 X10*3/uL (0.1-1.2); Monocytes Percent Auto 5.3 % (2-11); Neutrophils Absolute Auto 10.5 x10*3/uL (2.0-8.3); Neutrophils Percent Auto 83.6 % (45-73); Platelet Count 228 X10*3/uL (160-400); Red Blood Count 4.64 X10*6/uL (4.20-5.50); Red Cell Distribution Width 13.2 % (11.0-16.0); White Blood Count 12.5 X10*3/uL (4.8-10.8)
[2021-10-15 10:38] LABS: IDNOW Serial# 08D9AD1C; Strep A Nucleic Acid Negative (Negative)
[2021-10-15] MEDS: Famotidine/PF 20 MG/2 ML VIAL IVPUSH (10:38)
[2021-10-15 10:39] LABS: Appearance Urine CLEAR; Color Urine YELLOW; Glucose Urine UA NEG (NEG); Leukocyte Esterase Urine NEG (NEG); Nitrite Urine NEG (NEG); PH 5.5 (5.0-8.0); Specific Gravity - Urine 1.025 (1.005-1.025); UACC Culture Trigger NO; Urine Blood NEG (NEG); Urine Ketones 5 MG/DL (NEG); Urine Protein 1+ MG/DL (NEG-TRACE)
[2021-10-15 10:41] LABS: UPreg QC Valid YES; Urine Pregnancy NEGATIVE (NEGATIVE)
[2021-10-15 10:49] LABS: Bacteria Urine TRACE /LPF; Mucus Urine 2+ /LPF; RBC Urine 0 /HPF (0); Squamous Epithelial Cell Urine 2+ /LPF; WBC Urine 0-2 /HPF (0-4)
[2021-10-15 10:51] LABS: Alanine Aminotransferase 26 U/L (0-31); Albumin Level 4.5 g/dL (3.5-5.0); Alkaline Phosphatase 105 U/L (39-117); Anion Gap 15 (12-20); Aspartate Amino Transferase 24 U/L (5-31); Bilirubin Direct 0.3 mg/dL (0.0-0.5); Bilirubin Total 0.6 mg/dL (0.0-1.0); Blood Urea Nitrogen 6 mg/dL (9-16); Calcium 9.7 mg/dL (8.4-10.2); Carbon Dioxide 23 mmol/L (22-29); Chloride 100 mmol/L (96-108); Creatinine Clr Calc Pharmacy 108.7; Estimated Glomerular Filt Rate > 60; Glucose Random 113 mg/dL (60-115); Lipase 39 U/L (8-78); Potassium 3.8 mmol/L (3.3-5.1); Sodium 134 mmol/L (135-145); Total Protein 7.8 g/dL (6.5-8.0)
[2021-10-15] MEDS: Metoclopramide HCl 10 MG/2 ML VIAL IVPUSH (12:55)
[2021-10-15 14:03] VITALS: BP 114/73; PULSE 89; RESP 20; TEMP 38.4; O2SAT 98
[2021-10-15 14:27] LABS: Monotest Negative (Negative)
[2021-10-15] MEDS: Acetaminophen 325 MG TABLET 650 MG PO (15:03)
[2021-10-15 16:03] VITALS: BP 104/65; PULSE 86; RESP 16; TEMP 37.2; O2SAT 98
== END 2021-10-15 16:26 | disposition home or self-care (01) ==
PROVIDERS: Emergency Provider Emergency Medicine
DX: K52.9 Noninfective gastroenteritis and colitis, unspecified (principal); J02.9 Acute pharyngitis, unspecified; Z20.822 Contact with and (suspected) exposure to COVID-19; R11.2 Nausea with vomiting, unspecified; R50.9 Fever, unspecified; Z90.49 Acquired absence of other specified parts of digestive tract
CPT/HCPCS: 36415; 71045; 74176; 80048; 80076; 81001; 81025; 83690; 85025; 86308; 87502; 87635; 87651; 96361; 96374; 96375; 99283; 99284; J2765

== ENCOUNTER 2022-04-11 12:42 | Emergency (ER) | payer OTHER, SELFPAY ==
--- NOTE | ~2022-04-11 | US_ITS ---
EXAMINATION: US ABDOMEN LIMITED CLINICAL INFORMATION: Abdominal pain. Nausea and vomiting.. COMPARISON: CT abdomen pelvis 10/15/2021 TECHNIQUE: Real-time imaging of the right upper quadrant abdominal viscera., Doppler exam was used. FINDINGS: PANCREAS: Normal. LIVER: Normal. The liver is normal in size. The liver contour is normal. Parenchymal echogenicity is normal. No focal hepatic lesion. There is no intrahepatic biliary duct dilatation seen. GALLBLADDER: Normal. The gallbladder is physiologically distended without evidence of stones, sludge, polyps, wall thickening or pericholecystic fluid. COMMON BILE DUCT: Normal in caliber measuring 0.3 cm in diameter. RIGHT KIDNEY: Normal. No hydronephrosis. No renal calculi or focal parenchymal lesions. The kidney measures 10.3 cm in maximum dimension. FREE FLUID: None. US/US abdomen limited IMPRESSION: Normal ultrasound right upper quadrant of abdomen.
[2022-04-11 12:52] VITALS: BP 121/77; BP 135/82; PULSE 50; PULSE 65; RESP 18; O2SAT 97; BMI 20.9
--- NOTE | 2022-04-11 13:07 | ED.NAVMDI ---
HPI - Nausea/Vomiting/Diarrhea General Chief complaint: Nausea/Vomiting/Diarrhea Stated complaint: NAUSEA VOMITING Time Seen by Provider: 04/11/22 12:51 Source: patient Mode of arrival: EMS Limitations: no limitations History of Present Illness HPI Narrative: Patient presents emergency department via EMS for evaluation of nausea vomiting and abdominal pain. Onset was earlier this morning exact time is unknown, it is unclear exactly how many times she has vomited. She is not certain what color the emesis has been. Reporting epigastric pain as well as midline lower abdominal pain. Denies any possibility of , reporting last menstrual period to be a few days ago. Not on any form of contraceptive, and she is sexually active. Patient does endorse that she had 2 alcoholic drinks last night. She does endorse marijuana usage, states that she did also smoke yesterday but does not smoke every day. Denies any additional recreational drug usage. Reports similar episodes of nausea and vomiting in the past but typically does not have associated abdominal pain. Denies fevers, chills, recent sick contacts, headache, dizziness, lightheadedness, chest pain, palpitations, shortness of breath, dysuria, urinary frequency/urgency/hesitancy, hematuria. Related Data Previous Rx's Medication Instructions Recorded amoxicillin 500 mg tablet 500 mg PO BID #20 tabs 05/15/20 ondansetron 4 mg disintegrating 4 mg PO Q8H PRN nausea and 05/21/20 tablet vomiting #20 tabs fluconazole 150 mg tablet 150 mg PO Q3D 2 doses #2 tabs 08/04/20 (Diflucan) metronidazole 500 mg tablet 500 mg PO BID Bacterial vaginosis 08/04/20 (Flagyl) 7 days #14 tabs cephalexin 500 mg capsule 500 mg PO BID 7 days #14 caps 09/10/20 mupirocin 2 % topical ointment 1 appl topical BID 7 days #15 grams 09/10/20 ondansetron HCl 4 mg tablet 4 mg PO Q8H PRN nausea and 10/06/20 (Zofran) vomiting #14 tabs doxycycline monohydrate 100 mg 100 mg PO BID #14 caps 01/14/21 capsule benzonatate 100 mg capsule 100 mg PO TID PRN cough #15 caps 02/10/21 (Tessalon Tyson) naproxen 500 mg tablet 500 mg PO BID PRN pain #20 tabs 02/10/21 cephalexin 500 mg capsule 500 mg PO QID #28 caps 02/25/21 fluconazole 150 mg tablet 150 mg PO Q3D 2 doses #2 tabs 02/25/21 (Diflucan) omeprazole 40 mg capsule,delayed 40 mg PO DAILY 8 weeks #56 caps 08/23/21 release amoxicillin 500 mg tablet 500 mg PO Q12H #20 tabs 10/15/21 ondansetron 4 mg disintegrating 4 mg PO Q8H PRN nausea and 04/11/22 tablet vomiting #10 tabs Allergies Allergy/AdvReac Type Severity Reaction Status Date / Time No Known Allergies Allergy Verified 10/15/21 09:42 [No Known Allergies*] Review of Systems Review of Systems: Constitutional : No Weight loss, No Fever, No Chills ENT/Mouth :? No sore throat, No Rhinorrhea Eyes: No Swelling, No Redness Cardiovascular : No Chest Pain, No SOB, No Edema Respiratory : No Cough, No Sputum, No Wheezing Gastrointestinal : Positive Nausea, Positive Vomiting, no Diarrhea, positive abdominal pain, No Hematochezia, No Melena Genitourinary : No Dysuria, No Urinary Frequency, No Hematuria, No Urgency? Musculoskeletal : No joint pain, No Myalgias, No Joint Swelling Skin : No Skin Lesions, No rash Neuro : No Weakness, No Numbness, No Dizziness, No Headache Psych : No Anxiety/Panic, No Depression Heme/Lymph: No Bruising, No Lymphadenopathy Endocrine : No Polyuria, No Polydipsia Yes all other systems are reviewed and are negative PMFSH Past Medical History Attestation statement: The following information was validated with the patient. Source: old records reviewed Medical History Asthma GERD (gastroesophageal reflux disease) No known health problems Surgical History Hx of cholecystectomy Social History Social History Alcohol intake: never Advance Directives: No Advance Directives Information Provided: No Physical Exam Vital Signs: Vital Signs: Last Vital Signs Temp 98.1 F 04/11/22 13:35 Pulse 52 04/11/22 13:35 Resp 15 04/11/22 13:35 BP 129/72 04/11/22 13:35 Pulse Ox 99 04/11/22 13:35 O2 Del Method 04/11/22 13:35 BMI result Body Mass Index 20.9 Appearance: Alert.?Oriented to person, place and time. No acute distress.?Normal affect. Eyes: Pupils equal, round and reactive to light.? ENT: Pharynx normal.?? Neck: Normal inspection.? Neck supple.?? CVS: Heart sounds normal. Normal heart rate and rhythm.? Pulses normal.?? Respiratory: No respiratory distress.? Lung sounds clear to auscultation bilaterally?? Abdomen: Soft with epigastric tenderness Normoactive bowel sounds. ? Skin: Skin warm and dry.? Normal skin color.? ?? Extremities: No lower extremity edema.? Neuro: Moves all extremities spontaneously. Sensation intact bilaterally. CN II-XII intact. No focal neuro deficits. Ambulates with normal steady gait. Course Course Course Narrative: Patient is a 21-year-old female with a past medical of asthma, GERD, cholecystectomy. She presents emergency department for evaluation of acute onset nausea vomiting and upper abdominal pain. Reports history of similar episodes of nausea and vomiting in the past, is not typically experience abdominal pain associated with this. She is afebrile, not tachycardic, no tachypnea or hypoxia. Abdominal exam significant for epigastric tenderness upon palpation. Will obtain CBC to evaluate for leukocytosis/ anemia, CMP and lipase to evaluate for abnormal electrolytes /abnormal renal function/ abnormal hepatic/biliary function, Urinalysis, and urine . Will trial morphine IV for pain, Reglan IV for nausea as she has already received ondansetron IV via EMS. Differential includes GERD, gastritis, CBD stone, , urinary tract infection. Reevaluation(s) Reevaluation #1: CBC is overall unremarkable, no leukocytosis or anemia. CMP is unremarkable. Lipase is normal. Negative . COVID-19 testing is negative. Ultrasound is unremarkable. Patient reports feeling much better at this time. Is able to tolerate gingerale and crackers without vomiting or pain. Urinalysis without evidence of infection. Suspect symptoms to be secondary to gastritis. Discussed plan of care for discharge home, will provide antiemetics. Reviewed worsening signs symptoms return back to the emergency department for. Outpatient follow-up with primary care provider. Patient discharged in stable condition. MDM - Nausea/Vomiting/Diarrhea Medical Records Attestation: I reviewed the patient's medical records. Lab Data Attestation: I reviewed the patient's lab results. Result diagrams: 04/11/22 13:18 04/11/22 13:18 Labs: Lab Results 04/11/22 04/11/22 04/11/22 Range/Units 13:18 13:18 13:18 WBC 10.1 (4.8-10.8) X10*3/uL RBC 4.29 (4.20-5.50) X10*6/uL Hgb 12.4 (12.0-16.0) g/dl Hct 35.8 L (37.0-47.0) % MCV 83.4 (80.0-98.0) fL MCH 28.9 (27.0-33.0) pg MCHC 34.6 (31.0-35.0) g/dl RDW 12.7 (11.0-16.0) % Plt Count 242 (160-400) X10*3/uL MPV 10.7 (9.4-12.3) fL Immature Gran % (Auto) 0.4 (0.0-0.4) % Neut % (Auto) 83.1 H (45-73) % Lymph % (Auto) 12.2 L (20-40) % [place] % (Auto) 3.9 (2-11) % Eos % (Auto) 0.0 (0-4) % Baso % (Auto) 0.4 (0-2) % Lymph # (Auto) 1.2 (1.2-4.9) X10*3/uL [place] # (Auto) 0.4 (0.1-1.2) X10*3/uL Eos # (Auto) 0.0 (0.0-0.4) X10*3/uL Baso # (Auto) 0.0 (0.0-0.2) X10*3/uL Abs Immat Gran (auto) 0.04 H (0.00-0.03) X10*3/uL Absolute Neuts (auto) 8.4 H (2.0-8.3) x10*3/uL Absolute Nucleated RBC 0.000 (0.0-0.012) X10*3/uL Nucleated RBC % (auto) 0.0 (0.0-0.2) /100WBC Sodium 139 (135-145) mmol/L Potassium 3.6 (3.3-5.1) mmol/L Chloride 108 (96-108) mmol/L Carbon Dioxide 19 L (22-29) mmol/L Anion Gap 16 (12-20) BUN 9 (9-16) mg/dL Creatinine 0.60 (0.5-1.4) mg/dL Estim Creat Clear Calc 133.4 Estimated GFR > 60 Random Glucose 116 H (60-115) mg/dL Calcium 9.0 D (8.4-10.2) mg/dL Total Bilirubin < 0.2 (0.0-1.0) mg/dL AST 22 (5-31) U/L ALT 24 (0-31) U/L Alkaline Phosphatase 61 D (39-117) U/L Total Protein 7.2 (6.5-8.0) g/dL Albumin 4.5 (3.5-5.0) g/dL Lipase 21 (8-78) U/L Beta HCG, Quant mIU/mL Urine Color Urine Appearance Urine pH (5.0-9.0) Ur Specific [place] (1.005-1.025) Urine Protein (Neg-Trace) mg/dL Urine Glucose (UA) (Negative) mg/dL Urine Ketones (Negative) mg/dL Urine Blood (Negative) Urine Nitrite (Negative) Ur Leukocyte Esterase (Negative) Urine Test (NEGATIVE) COVID-19 (BRIAN) (Negative) COVID-19 Clin Com Influenza Type A (MAY) Negative (Negative) Influenza Type B (MAY) Negative (Negative) Influenza A & B Note See Note 04/11/22 04/11/22 04/11/22 Range/Units 13:18 13:18 15:27 WBC (4.8-10.8) X10*3/uL RBC (4.20-5.50) X10*6/uL Hgb (12.0-16.0) g/dl Hct (37.0-47.0) % MCV (80.0-98.0) fL MCH (27.0-33.0) pg MCHC (31.0-35.0) g/dl RDW (11.0-16.0) % Plt Count (160-400) X10*3/uL MPV (9.4-12.3) fL Immature Gran % (Auto) (0.0-0.4) % Neut % (Auto) (45-73) % Lymph % (Auto) (20-40) % [place] % (Auto) (2-11) % Eos % (Auto) (0-4) % Baso % (Auto) (0-2) % Lymph # (Auto) (1.2-4.9) X10*3/uL [place] # (Auto) (0.1-1.2) X10*3/uL Eos # (Auto) (0.0-0.4) X10*3/uL Baso # (Auto) (0.0-0.2) X10*3/uL Abs Immat Gran (auto) (0.00-0.03) X10*3/uL Absolute Neuts (auto) (2.0-8.3) x10*3/uL Absolute Nucleated RBC (0.0-0.012) X10*3/uL Nucleated RBC % (auto) (0.0-0.2) /100WBC Sodium (135-145) mmol/L Potassium (3.3-5.1) mmol/L Chloride (96-108) mmol/L Carbon Dioxide (22-29) mmol/L Anion Gap (12-20) BUN (9-16) mg/dL Creatinine (0.5-1.4) mg/dL Estim Creat Clear Calc Estimated GFR Random Glucose (60-115) mg/dL Calcium (8.4-10.2) mg/dL Total Bilirubin (0.0-1.0) mg/dL AST (5-31) U/L ALT (0-31) U/L Alkaline Phosphatase (39-117) U/L Total Protein (6.5-8.0) g/dL Albumin (3.5-5.0) g/dL Lipase (8-78) U/L Beta HCG, Quant < 2 mIU/mL Urine Color Yellow Urine Appearance Clear Urine pH 7.5 (5.0-9.0) Ur Specific [place] 1.020 (1.005-1.025) Urine Protein Negative (Neg-Trace) mg/dL Urine Glucose (UA) Negative (Negative) mg/dL Urine Ketones Negative (Negative) mg/dL Urine Blood Negative (Negative) Urine Nitrite Negative (Negative) Ur Leukocyte Esterase Negative (Negative) Urine Test (NEGATIVE) COVID-19 (BRIAN) Negative (Negative) COVID-19 Clin Com See Note Influenza Type A (MAY) (Negative) Influenza Type B (MAY) (Negative) Influenza A & B Note 04/11/22 Range/Units 15:28 WBC (4.8-10.8) X10*3/uL RBC (4.20-5.50) X10*6/uL Hgb (12.0-16.0) g/dl Hct (37.0-47.0) % MCV (80.0-98.0) fL MCH (27.0-33.0) pg MCHC (31.0-35.0) g/dl RDW (11.0-16.0) % Plt Count (160-400) X10*3/uL MPV (9.4-12.3) fL Immature Gran % (Auto) (0.0-0.4) % Neut % (Auto) (45-73) % Lymph % (Auto) (20-40) % [place] % (Auto) (2-11) % Eos % (Auto) (0-4) % Baso % (Auto) (0-2) % Lymph # (Auto) (1.2-4.9) X10*3/uL [place] # (Auto) (0.1-1.2) X10*3/uL Eos # (Auto) (0.0-0.4) X10*3/uL Baso # (Auto) (0.0-0.2) X10*3/uL Abs Immat Gran (auto) (0.00-0.03) X10*3/uL Absolute Neuts (auto) (2.0-8.3) x10*3/uL Absolute Nucleated RBC (0.0-0.012) X10*3/uL Nucleated RBC % (auto) (0.0-0.2) /100WBC Sodium (135-145) mmol/L Potassium (3.3-5.1) mmol/L Chloride (96-108) mmol/L Carbon Dioxide (22-29) mmol/L Anion Gap (12-20) BUN (9-16) mg/dL Creatinine (0.5-1.4) mg/dL Estim Creat Clear Calc Estimated GFR Random Glucose (60-115) mg/dL Calcium (8.4-10.2) mg/dL Total Bilirubin (0.0-1.0) mg/dL AST (5-31) U/L ALT (0-31) U/L Alkaline Phosphatase (39-117) U/L Total Protein (6.5-8.0) g/dL Albumin (3.5-5.0) g/dL Lipase (8-78) U/L Beta HCG, Quant mIU/mL Urine Color Urine Appearance Urine pH (5.0-9.0) Ur Specific [place] (1.005-1.025) Urine Protein (Neg-Trace) mg/dL Urine Glucose (UA) (Negative) mg/dL Urine Ketones (Negative) mg/dL Urine Blood (Negative) Urine Nitrite (Negative) Ur Leukocyte Esterase (Negative) Urine Test NEGATIVE (NEGATIVE) COVID-19 (BRIAN) (Negative) COVID-19 Clin Com Influenza Type A (MAY) (Negative) Influenza Type B (MAY) (Negative) Influenza A & B Note Imaging Data US - abdomen: Radiologist's impression: US/US abdomen limited IMPRESSION: Normal ultrasound right upper quadrant of abdomen. Discharge Plan Discharge Clinical Impression: Gastroenteritis Patient Disposition: Home, Self-Care Instructions: Gastroenteritis (ED) Additional Instructions: Blood work was normal, ultrasound normal, urine was normal. You have been given a prescription for Zofran to use as needed for nausea. Introduce a bland diet including crackers, bananas, rice, soup, toast, and boiled vegetables. This may progress to plain baked or boiled chicken or turkey. Avoid dairy products or foods high in fat or grease. Return to emergency department any new or worsening symptoms or concerns. Follow-up with your primary care provider within 3 days. Prescriptions: New ondansetron 4 mg tablet,disintegrating 4 mg PO Q8H PRN (Reason: nausea and vomiting) Qty: 10 0RF No Action metronidazole [Flagyl] 500 mg tablet 500 mg PO BID 7 Days Qty: 14 0RF fluconazole [Diflucan] 150 mg tablet 150 mg PO Q3D Qty: 2 0RF Rx Instructions: Take 1 tablet today repeat if symptoms persist in 72 hours. ondansetron HCl [Zofran] 4 mg tablet 4 mg PO Q8H PRN (Reason: nausea and vomiting) Qty: 14 0RF doxycycline monohydrate 100 mg capsule 100 mg PO BID Qty: 14 0RF naproxen 500 mg tablet 500 mg PO BID PRN (Reason: pain) Qty: 20 0RF benzonatate [Tessalon Perles] 100 mg capsule 100 mg PO TID PRN (Reason: cough) Qty: 15 0RF fluconazole [Diflucan] 150 mg tablet 150 mg PO Q3D Qty: 2 0RF Rx Instructions: may repeat second dose 72 hrs after first dose if symptoms persist cephalexin 500 mg capsule 500 mg PO QID Qty: 28 0RF amoxicillin 500 mg tablet 500 mg PO BID Qty: 20 0RF ondansetron 4 mg tablet,disintegrating 4 mg PO Q8H PRN (Reason: nausea and vomiting) Qty: 20 0RF cephalexin 500 mg capsule 500 mg PO BID 7 Days Qty: 14 0RF mupirocin 2 % ointment 1 appl topical BID 7 Days Qty: 15 0RF amoxicillin 500 mg tablet 500 mg PO Q12H Qty: 20 0RF omeprazole 40 mg capsule,delayed release(DR/EC) 40 mg PO DAILY 56 Days Qty: 56 0RF
[2022-04-11] MEDS: Morphine Sulfate 4 MG/ML CARTRIDGE IVPUSH (13:20)
[2022-04-11] MEDS: Metoclopramide HCl 10 MG/2 ML VIAL IVPUSH (13:20)
[2022-04-11] MEDS: 0.9 % Sodium Chloride 1,000 ML 999 ML IV (13:21)
[2022-04-11 13:22] LABS: MANUAL DIFF FLAG NO
[2022-04-11 13:24] LABS: Basophils Percent Auto 0.4 % (0-2); Hematocrit 35.8 % (37.0-47.0); Hemoglobin 12.4 g/dl (12.0-16.0); Imm Gran Abs Auto 0.04 X10*3/uL (0.00-0.03); Imm Gran Pct Auto 0.4 % (0.0-0.4); Lymphocytes Absolute Auto 1.2 X10*3/uL (1.2-4.9); Lymphocytes Percent Auto 12.2 % (20-40); Mean Corpuscular HGB Conc 34.6 g/dl (31.0-35.0); Mean Corpuscular Hemoglobin 28.9 pg (27.0-33.0); Mean Corpuscular Volume 83.4 fL (80.0-98.0); Mean Platelet Volume 10.7 fL (9.4-12.3); Monocytes Absolute Auto 0.4 X10*3/uL (0.1-1.2); Monocytes Percent Auto 3.9 % (2-11); Neutrophils Absolute Auto 8.4 x10*3/uL (2.0-8.3); Neutrophils Percent Auto 83.1 % (45-73); Platelet Count 242 X10*3/uL (160-400); Red Blood Count 4.29 X10*6/uL (4.20-5.50); Red Cell Distribution Width 12.7 % (11.0-16.0); White Blood Count 10.1 X10*3/uL (4.8-10.8)
[2022-04-11 13:35] VITALS: BP 129/72; PULSE 52; RESP 15; TEMP 36.7; O2SAT 99
[2022-04-11 13:42] LABS: COVID-19 Test Negative (Negative); IDNOW Serial# 16C4AD1C
[2022-04-11 13:44] LABS: HCG Quantitative < 2 mIU/mL
[2022-04-11 13:48] LABS: Alanine Aminotransferase 24 U/L (0-31); Albumin Level 4.5 g/dL (3.5-5.0); Alkaline Phosphatase 61 U/L (39-117); Anion Gap 16 (12-20); Aspartate Amino Transferase 22 U/L (5-31); Bilirubin Total < 0.2 mg/dL (0.0-1.0); Blood Urea Nitrogen 9 mg/dL (9-16); Carbon Dioxide 19 mmol/L (22-29); Chloride 108 mmol/L (96-108); Creatinine Clr Calc Pharmacy 133.4; Estimated Glomerular Filt Rate > 60; Glucose Random 116 mg/dL (60-115); Lipase 21 U/L (8-78); Potassium 3.6 mmol/L (3.3-5.1); Sodium 139 mmol/L (135-145); Total Protein 7.2 g/dL (6.5-8.0)
[2022-04-11 14:18] LABS: IDNOW Serial# 9DB6401D; Influenza A Negative (Negative); Influenza B2 Negative (Negative)
[2022-04-11 15:35] LABS: Appearance Urine Clear; Color Urine Yellow; Glucose Urine UA Negative (Negative); Leukocyte Esterase Urine Negative (Negative); Nitrite Urine Negative (Negative); PH 7.5 (5.0-9.0); Urine Blood Negative (Negative); Urine Ketones Negative (Negative); Urine Protein Negative (Neg-Trace)
[2022-04-11 15:35] LABS: UPreg QC Valid YES; Urine Pregnancy NEGATIVE (NEGATIVE)
[2022-04-11 16:00] VITALS: BP 95/56; PULSE 53; RESP 16; TEMP 36.8; O2SAT 98
[2022-04-11 17:05] LABS: Amphetamine Screen Urine Not Detected (Not Detect); Barbiturates, Urine Not Detected (Not Detect); Benzodiazepines Screen Urine Not Detected (Not Detect); Cannabinoid Screen Urine POSITIVE (Not Detect); Cocaine Screen Urine Not Detected (Not Detect); Fentanyl, urine Not Detected (Not Detect); Opiate Screen Urine POSITIVE (Not Detect); Phencyclidine Screen Urine Not Detected (Not Detect)
== END 2022-04-11 16:41 | disposition home or self-care (01) ==
PROVIDERS: Nurse Practitioner Family; Emergency Provider Emergency Medicine
DX: K52.9 Noninfective gastroenteritis and colitis, unspecified (principal); R11.2 Nausea with vomiting, unspecified; Z20.822 Contact with and (suspected) exposure to COVID-19; Z79.899 Other long term (current) drug therapy
CPT/HCPCS: 36415; 76705; 80053; 80307; 81003; 81025; 83690; 84702; 85025; 87502; 87635; 96361; 96374; 96375; 99284; J2270; J2765

== ENCOUNTER 2022-09-07 22:26 | Emergency (ER) | payer OTHER, SELFPAY ==
[2022-09-07 22:40] VITALS: BP 112/87; PULSE 105; RESP 16; TEMP 36.1; O2SAT 98; BMI 20.5
[2022-09-08] VITALS: BP 110/82; PULSE 99; RESP 16; TEMP 36.7; O2SAT 97
--- NOTE | 2022-09-08 01:43 | ED.ANXIETY ---
HPI - Anxiety General Chief Complaint: Anxiety Stated Complaint: Anxiety Time Seen by Provider: 09/08/22 00:44 Source: patient Mode of arrival: ambulatory Limitations: no limitations History of Present Illness HPI narrative: 22-year-old female who presents emergency department for angulation of anxiety. The patient states that she has a history of anxiety but has never really had therapy. She states that when she was in [place] she was prescribed a medication but she only took it for several days since she did not like the way it made her feel. She states that over the past week she has had increased anxiety and today she had 2 panic attacks. The patient states the panic attacks started after she got in argument with her boyfriend. She states she has had no appetite. She states she has lost weight. She states that she is having difficulty sleeping. She denied fever, chills, rhinorrhea, sore throat, cough, chest pain, shortness of breath, nausea, vomiting diarrhea. Related Data Previous Rx's Medication Instructions Recorded amoxicillin 500 mg tablet 500 mg PO BID #20 tabs 05/15/20 ondansetron 4 mg disintegrating 4 mg PO Q8H PRN nausea and 05/21/20 tablet vomiting #20 tabs fluconazole 150 mg tablet 150 mg PO Q3D 2 doses #2 tabs 08/04/20 (Diflucan) metronidazole 500 mg tablet 500 mg PO BID Bacterial vaginosis 08/04/20 (Flagyl) 7 days #14 tabs cephalexin 500 mg capsule 500 mg PO BID 7 days #14 caps 09/10/20 mupirocin 2 % topical ointment 1 appl topical BID 7 days #15 grams 09/10/20 ondansetron HCl 4 mg tablet 4 mg PO Q8H PRN nausea and 10/06/20 (Zofran) vomiting #14 tabs doxycycline monohydrate 100 mg 100 mg PO BID #14 caps 01/14/21 capsule benzonatate 100 mg capsule 100 mg PO TID PRN cough #15 caps 02/10/21 (Tessalon Perles) naproxen 500 mg tablet 500 mg PO BID PRN pain #20 tabs 02/10/21 cephalexin 500 mg capsule 500 mg PO QID #28 caps 02/25/21 fluconazole 150 mg tablet 150 mg PO Q3D 2 doses #2 tabs 02/25/21 (Diflucan) omeprazole 40 mg capsule,delayed 40 mg PO DAILY 8 weeks #56 caps 08/23/21 release amoxicillin 500 mg tablet 500 mg PO Q12H #20 tabs 10/15/21 ondansetron 4 mg disintegrating 4 mg PO Q8H PRN nausea and 04/11/22 tablet vomiting #10 tabs lorazepam 0.5 mg tablet (Ativan) 0.5 mg PO TID PRN anxiety #10 tabs 09/08/22 Allergies Allergy/AdvReac Type Severity Reaction Status Date / Time No Known Allergies Allergy Verified 10/15/21 09:42 [No Known Allergies*] Review of Systems Review of Systems: Yes all other systems are reviewed and are negative [facility] Past Medical History [facility] Narrative: Past medical history: Reviewed below, she has a history of anxiety but has never been treated. Medical History Asthma GERD (gastroesophageal reflux disease) No known health problems Surgical History Hx of cholecystectomy Social History Social History Alcohol intake: never Advance Directives: No Advance Directives Information Provided: Yes Physical Exam Vital Signs: Vital Signs: Last Vital Signs Temp 98.0 F 09/08/22 00:00 Pulse 99 09/08/22 00:00 Resp 16 09/08/22 00:00 BP 110/82 09/08/22 00:00 Pulse Ox 97 09/08/22 00:00 O2 Del Method 09/08/22 00:00 BMI result Body Mass Index 20.5 Const: General: cooperative and no acute distress Orientation/consciousness: oriented to person and oriented to place Limitations: no limitations HEENT: Head: Yes normal to inspection, Yes normocephalic and Yes atraumatic Ears: external ears normal General nose exam: Normal external nose present Face and sinus: Yes normal facial exam Mouth: Normal oral and palatal mucosa present Throat: Yes posterior oropharynx normal Eyes: General: appearance normal, both eyes and all related structures Pupils: Equal, round and reactive pupils present Neck: Neck: Yes normal visual inspection, Yes no lymphadenopathy, Yes trachea midline and Yes supple Chest: Chest palpation & inspection: normal inspection of the chest and normal palpation of entire chest wall Resp: Effort & Inspection: normal respiratory effort and able to speak in complete sentences Auscultation: clear to auscultation bilaterally Cardio: Rate: regular rate Rhythm: regular rhythm Heart sounds: S1 normal heart sound present, S2 normal heart sound present and no murmurs GI: Inspection: Yes normal to inspection Palpation (GI): Soft to palpation, nontender and no guarding Auscultation: normal bowel sounds : General: Yes no CVA tenderness Back/Spine/Pelvis: Back: no CVA tenderness Skin: General skin exam: no rashes or lesions noted Neuro: General: oriented to person and oriented to place Cranial nerves: Yes CN's II-XII intact bilaterally and Yes Equal, round and reactive pupils present Cognition (Neuro): normal cognition Motor exam (neuro): 5/5 motor strength present throughout Extrem: General: Yes normal to inspection Psych: Appearance: grossly normal Speech and movement: Normal speech and movement present Affect: normal affect Attitude: cooperative Thought process: Normal thought process present Thought content: Normal thought content present Medical Decision Making Medical Decision Making MDM Narrative: 22-year-old female who presents emergency department for evaluation increased anxiety over the past week with to panic attacks today that occurred after she got in argument with her ex boyfriend patient does have somatic symptoms including difficulty sleeping, loss of appetite and weight loss. The patient denied being suicidal or homicidal. She also denied feeling threatened or unsafe in regards to her ex-boyfriend. Patient had no systemic symptoms. Her examination was unremarkable. The patient states that she is employed and she works for [employer]. The patient was started on Ativan 0.5 mg, 1 pill 3 times a day at night as needed for anxiety. She was advised to contact [facility] ([facility]) today to be evaluated for depression and anxiety. I told her that [facility] can get her therapy as well as prescribed medications if needed. Differential Diagnosis Differential diagnosis includes was not limited to depression, anxiety, suicidal ideation External Record Review External record reviewed: Other ([place] prescription monitoring program -no prescriptions for controlled substances) Discharge Plan Discharge Clinical Impression: Acute anxiety, Depression Patient Disposition: Home, Self-Care Instructions: Depression (ED), Anxiety (ED) Additional Instructions: Your symptoms are consistent with depression and anxiety. I want you to contact [facility] ([facility]) tomorrow be seen for depression and anxiety. I am prescribing Ativan (lorazepam) 0.5 mg pills, you can take 1 pill every 6 hours as needed for anxiety, this medication will make you sleepy, you cannot work or drive if you take this medication. I want you to start by taking 1 pill at night to see if it help you sleep in helps with your anxiety during the day. Ativan is a benzodiazepine in these medications can be addicting. Your concerned about addiction you can ask the pharmacist for less pills than prescribed or do not get the prescription filled. Please return to the emergency department if you are thinking of hurting herself or hurting anyone else. Follow-up with your doctor in 2 days. Please return to the emergency department if your symptoms get worse or if you develop any symptoms that are concerning to you. Please see the work note. Prescriptions: New lorazepam [Ativan] 0.5 mg tablet 0.5 mg PO TID PRN (Reason: anxiety) Qty: 10 0RF Rx Instructions: patient may ask for partial fill No Action metronidazole [Flagyl] 500 mg tablet 500 mg PO BID 7 Days Qty: 14 0RF fluconazole [Diflucan] 150 mg tablet 150 mg PO Q3D Qty: 2 0RF Rx Instructions: Take 1 tablet today repeat if symptoms persist in 72 hours. ondansetron HCl [Zofran] 4 mg tablet 4 mg PO Q8H PRN (Reason: nausea and vomiting) Qty: 14 0RF doxycycline monohydrate 100 mg capsule 100 mg PO BID Qty: 14 0RF naproxen 500 mg tablet 500 mg PO BID PRN (Reason: pain) Qty: 20 0RF benzonatate [Tessalon Perles] 100 mg capsule 100 mg PO TID PRN (Reason: cough) Qty: 15 0RF fluconazole [Diflucan] 150 mg tablet 150 mg PO Q3D Qty: 2 0RF Rx Instructions: may repeat second dose 72 hrs after first dose if symptoms persist cephalexin 500 mg capsule 500 mg PO QID Qty: 28 0RF amoxicillin 500 mg tablet 500 mg PO BID Qty: 20 0RF ondansetron 4 mg tablet,disintegrating 4 mg PO Q8H PRN (Reason: nausea and vomiting) Qty: 20 0RF cephalexin 500 mg capsule 500 mg PO BID 7 Days Qty: 14 0RF mupirocin 2 % ointment 1 appl topical BID 7 Days Qty: 15 0RF amoxicillin 500 mg tablet 500 mg PO Q12H Qty: 20 0RF omeprazole 40 mg capsule,delayed release(DR/EC) 40 mg PO DAILY 56 Days Qty: 56 0RF ondansetron 4 mg tablet,disintegrating 4 mg PO Q8H PRN (Reason: nausea and vomiting) Qty: 10 0RF Stand Alone Forms: Work/School Release
[2022-09-08 02:00] VITALS: BP 110/63; PULSE 51; RESP 16; TEMP 36.6; O2SAT 97
--- NOTE | 2022-09-08 02:27 | PC.NURSE ---
Review discharge instructions and medications. pt verbalized understanding, pt no sign of distress.
== END 2022-09-08 02:28 | disposition home or self-care (01) ==
PROVIDERS: Emergency Provider Emergency Medicine Emergency Medical Services
DX: F41.9 Anxiety disorder, unspecified (principal); F32.A Depression, unspecified; Z90.49 Acquired absence of other specified parts of digestive tract
CPT/HCPCS: 99283; 99284

== ENCOUNTER 2022-09-15 02:17 | Emergency (ER) | payer OTHER, SELFPAY ==
[2022-09-15 02:22] VITALS: BP 117/80; PULSE 90; RESP 16; TEMP 36.9; O2SAT 100; BMI 20.5
--- NOTE | 2022-09-15 03:54 | ED.ANXIETY ---
HPI - Anxiety General Chief Complaint: Anxiety Stated Complaint: Anxiety Time Seen by Provider: 09/15/22 02:59 Source: patient Mode of arrival: ambulatory History of Present Illness HPI narrative: 22-year-old female who states that she has a history of anxiety and had ?and attack? this evening and is unable to identify the inciting event. Patient states that she is feeling a little bit better. She denies any fever, chills, shortness breath, chest pain/palpitations. Related Data Previous Rx's Medication Instructions Recorded amoxicillin 500 mg tablet 500 mg PO BID #20 tabs 05/15/20 ondansetron 4 mg disintegrating 4 mg PO Q8H PRN nausea and 05/21/20 tablet vomiting #20 tabs fluconazole 150 mg tablet 150 mg PO Q3D 2 doses #2 tabs 08/04/20 (Diflucan) metronidazole 500 mg tablet 500 mg PO BID Bacterial vaginosis 08/04/20 (Flagyl) 7 days #14 tabs cephalexin 500 mg capsule 500 mg PO BID 7 days #14 caps 09/10/20 mupirocin 2 % topical ointment 1 appl topical BID 7 days #15 grams 09/10/20 ondansetron HCl 4 mg tablet 4 mg PO Q8H PRN nausea and 10/06/20 (Zofran) vomiting #14 tabs doxycycline monohydrate 100 mg 100 mg PO BID #14 caps 01/14/21 capsule benzonatate 100 mg capsule 100 mg PO TID PRN cough #15 caps 02/10/21 (Tesmarckon Tyson) naproxen 500 mg tablet 500 mg PO BID PRN pain #20 tabs 02/10/21 cephalexin 500 mg capsule 500 mg PO QID #28 caps 02/25/21 fluconazole 150 mg tablet 150 mg PO Q3D 2 doses #2 tabs 02/25/21 (Diflucan) omeprazole 40 mg capsule,delayed 40 mg PO DAILY 8 weeks #56 caps 08/23/21 release amoxicillin 500 mg tablet 500 mg PO Q12H #20 tabs 10/15/21 ondansetron 4 mg disintegrating 4 mg PO Q8H PRN nausea and 04/11/22 tablet vomiting #10 tabs lorazepam 0.5 mg tablet (Ativan) 0.5 mg PO TID PRN anxiety #10 tabs 09/08/22 hydroxyzine HCl 25 mg tablet 25 mg PO BID PRN anxiety #14 tabs 09/15/22 Allergies Allergy/AdvReac Type Severity Reaction Status Date / Time No Known Allergies Allergy Verified 10/15/21 09:42 [No Known Allergies*] Review of Systems Review of Systems: Pertinent positives and negatives as stated in [facility] Past Medical History Source: nursing notes reviewed Medical History Asthma GERD (gastroesophageal reflux disease) No known health problems Surgical History Hx of cholecystectomy Social History Social History Alcohol intake: never Smoked in Last 30 Days: No Use of substances other than those prescribed or required for medical reasons: No Advance Directives: No Patient : No Physical Exam Vital Signs: Vital Signs: Last Vital Signs Temp 98.5 F 09/15/22 02:22 Pulse 90 09/15/22 02:22 Resp 16 09/15/22 02:22 BP 117/80 09/15/22 02:22 Pulse Ox 100 09/15/22 02:22 O2 Del Method 09/15/22 02:22 BMI result Body Mass Index 20.5 VITAL SIGNS: Reviewed. GENERAL: Well developed, well nourished, in no acute distress. HEAD: Normocephalic/atraumatic EYES: PERRLA, EOMI LUNGS: Normal breath sounds. No adventitious sounds or accessory muscle use. SpO2<100> CARDIOVASCULAR: Regular rate and rhythm without noted murmurs ABDOMEN: Soft, non-tender, non-distended with bowel sounds. MUSCULOSKELETAL: No tenderness, deformities, or effusions noted on gross inspection. EXTREMITIES: No cyanosis, clubbing or edema. SKIN: Inspection of the skin reveals no rashes NEUROLOGIC: Alert and oriented x 4. Strength and sensation to light touch were grossly intact x 4. Medical Decision Making Medical Decision Making MDM Narrative: 22-year-old female who comes in with acute anxiety attack, she was seen here on 09/08/2022 and at discharge had been prescribed Ativan and according to the triage note patient states that the medication makes her sleepy so that she cannot take it due to needing to work. Will give patient hydroxyzine instead and sent a prescription over to her pharmacy. She is otherwise stable for discharge. There is no evidence of any components infection, anemia, acute medical condition. Differential Diagnosis Please see the discussion above Lab Data Please see the discussion above Labs: Lab Results 09/15/22 09/15/22 Range/Units 04:03 04:03 Urine Color Yellow Urine Appearance Clear Urine pH 5.5 (5.0-9.0) Ur Specific [place] 1.020 (1.005-1.025) Urine Protein Negative (Neg-Trace) mg/dL Urine Glucose (UA) Negative (Negative) mg/dL Urine Ketones Negative (Negative) mg/dL Urine Blood Negative (Negative) Urine Nitrite Negative (Negative) Ur Leukocyte Esterase Negative (Negative) Urine Test NEGATIVE (NEGATIVE) External Record Review External record reviewed: Outpatient record Discharge Plan Discharge Clinical Impression: Acute anxiety Patient Disposition: Home, Self-Care Instructions: Anxiety (ED) Additional Instructions: 1. You have been given a list of outpatient therapist to follow-up with, this is an excellent resource for alternatives to the current medication I have prescribed for your anxiety. 2. The medication I have prescribed to you for your anxiety does not cause as much drowsiness as the prior medication from 09/08. Return to the ER for any worsening symptoms. Prescriptions: New hydroxyzine HCl 25 mg tablet 25 mg PO BID PRN (Reason: anxiety) Qty: 14 0RF No Action metronidazole [Flagyl] 500 mg tablet 500 mg PO BID 7 Days Qty: 14 0RF fluconazole [Diflucan] 150 mg tablet 150 mg PO Q3D Qty: 2 0RF Rx Instructions: Take 1 tablet today repeat if symptoms persist in 72 hours. ondansetron HCl [Zofran] 4 mg tablet 4 mg PO Q8H PRN (Reason: nausea and vomiting) Qty: 14 0RF doxycycline monohydrate 100 mg capsule 100 mg PO BID Qty: 14 0RF naproxen 500 mg tablet 500 mg PO BID PRN (Reason: pain) Qty: 20 0RF benzonatate [Tessalon Perles] 100 mg capsule 100 mg PO TID PRN (Reason: cough) Qty: 15 0RF fluconazole [Diflucan] 150 mg tablet 150 mg PO Q3D Qty: 2 0RF Rx Instructions: may repeat second dose 72 hrs after first dose if symptoms persist cephalexin 500 mg capsule 500 mg PO QID Qty: 28 0RF amoxicillin 500 mg tablet 500 mg PO BID Qty: 20 0RF ondansetron 4 mg tablet,disintegrating 4 mg PO Q8H PRN (Reason: nausea and vomiting) Qty: 20 0RF cephalexin 500 mg capsule 500 mg PO BID 7 Days Qty: 14 0RF mupirocin 2 % ointment 1 appl topical BID 7 Days Qty: 15 0RF amoxicillin 500 mg tablet 500 mg PO Q12H Qty: 20 0RF lorazepam [Ativan] 0.5 mg tablet 0.5 mg PO TID PRN (Reason: anxiety) Qty: 10 0RF Rx Instructions: patient may ask for partial fill omeprazole 40 mg capsule,delayed release(DR/EC) 40 mg PO DAILY 56 Days Qty: 56 0RF ondansetron 4 mg tablet,disintegrating 4 mg PO Q8H PRN (Reason: nausea and vomiting) Qty: 10 0RF
--- NOTE | 2022-09-15 04:00 | PC.NURSE ---
pt c/o feeling anxious and shaky for the last couple of weeks and have worsened over time
[2022-09-15 04:14] LABS: UPreg QC Valid YES; Urine Pregnancy NEGATIVE (NEGATIVE)
[2022-09-15 04:15] LABS: Appearance Urine Clear; Color Urine Yellow; Glucose Urine UA Negative (Negative); Leukocyte Esterase Urine Negative (Negative); Nitrite Urine Negative (Negative); PH 5.5 (5.0-9.0); Urine Blood Negative (Negative); Urine Ketones Negative (Negative); Urine Protein Negative (Neg-Trace)
[2022-09-15] MEDS: hydrOXYzine HCL 25 MG TABLET PO (04:31)
--- NOTE | 2022-09-15 05:09 | PC.NURSE ---
Discharge instructions given/explained, ambulates safely/independently, no sob, able to speak in full sentences, all of pt's questions answered, no respiratory distress
== END 2022-09-15 05:09 | disposition home or self-care (01) ==
PROVIDERS: Emergency Provider Student in an Organized Health Care Education/Training Program
DX: F41.9 Anxiety disorder, unspecified (principal); Z79.899 Other long term (current) drug therapy
CPT/HCPCS: 81003; 81025; 99283; 99284

== ENCOUNTER 2022-10-01 10:40 | Emergency (ER) | payer OTHER, SELFPAY ==
[2022-10-01 11:21] VITALS: BP 113/57; PULSE 71; RESP 18; O2SAT 100; BMI 21.2
--- NOTE | 2022-10-01 11:23 | ED_ITS ---
HPI - General Adult General Chief complaint: Nausea/Vomiting/Diarrhea Stated complaint: nausea, fever, chills Time Seen by Provider: 10/01/22 14:24 Source: patient, RN notes reviewed and old records reviewed Mode of arrival: ambulatory Limitations: no limitations History of Present Illness HPI narrative: 22-year-old female presents for evaluation of some nausea and vomiting Patient reports that she vomited yesterday morning and ?did not feel well all day. ? She reports continued nausea but has not vomited today Denies any significant abdominal pain Denies any fevers, chills. The patient reports that she is status post cholecystectomy No other complaints or concerns at this. Related Data Previous Rx's Medication Instructions Recorded amoxicillin 500 mg tablet 500 mg PO BID #20 tabs 05/15/20 ondansetron 4 mg disintegrating 4 mg PO Q8H PRN nausea and 05/21/20 tablet vomiting #20 tabs fluconazole 150 mg tablet 150 mg PO Q3D 2 doses #2 tabs 08/04/20 (Diflucan) metronidazole 500 mg tablet 500 mg PO BID Bacterial vaginosis 08/04/20 (Flagyl) 7 days #14 tabs cephalexin 500 mg capsule 500 mg PO BID 7 days #14 caps 09/10/20 mupirocin 2 % topical ointment 1 appl topical BID 7 days #15 grams 09/10/20 ondansetron HCl 4 mg tablet 4 mg PO Q8H PRN nausea and 10/06/20 (Zofran) vomiting #14 tabs doxycycline monohydrate 100 mg 100 mg PO BID #14 caps 01/14/21 capsule benzonatate 100 mg capsule 100 mg PO TID PRN cough #15 caps 02/10/21 (Tessulaiman Mehta) naproxen 500 mg tablet 500 mg PO BID PRN pain #20 tabs 02/10/21 cephalexin 500 mg capsule 500 mg PO QID #28 caps 02/25/21 fluconazole 150 mg tablet 150 mg PO Q3D 2 doses #2 tabs 02/25/21 (Diflucan) omeprazole 40 mg capsule,delayed 40 mg PO DAILY 8 weeks #56 caps 08/23/21 release amoxicillin 500 mg tablet 500 mg PO Q12H #20 tabs 10/15/21 ondansetron 4 mg disintegrating 4 mg PO Q8H PRN nausea and 04/11/22 tablet vomiting #10 tabs lorazepam 0.5 mg tablet (Ativan) 0.5 mg PO TID PRN anxiety #10 tabs 09/08/22 hydroxyzine HCl 25 mg tablet 25 mg PO BID PRN anxiety #14 tabs 09/15/22 metronidazole 500 mg tablet 500 mg PO BID #14 tabs 10/01/22 ondansetron 4 mg disintegrating 4 mg PO Q8H PRN nausea and 10/01/22 tablet vomiting #10 tabs Allergies Allergy/AdvReac Type Severity Reaction Status Date / Time No Known Allergies Allergy Verified 10/15/21 09:42 [No Known Allergies*] Review of Systems Constitutional: Constitutional: Reports as per HPI, Denies chills, Denies fatigue, Denies fever(s) and Denies headache(s) ENT: Denies headache(s) Cardiovascular: Cardiovascular: Denies chest pain and Denies dyspnea Respiratory: Respiratory: Denies cough and Denies dyspnea Gastrointestinal: Gastrointestinal: Denies abdominal pain, Denies constipation, Reports nausea and Reports vomiting Genitourinary: Genitourinary: Denies dysuria Neurologic: Denies headache(s) and Denies focal weakness Endocrine: Endocrine: Denies fatigue PMFSH Past Medical History Medical History Asthma GERD (gastroesophageal reflux disease) No known health problems Surgical History Hx of cholecystectomy Social History Social History Alcohol intake: never Advance Directives: No Advance Directives Information Provided: Yes Physical Exam ED Vital Signs: Vital Signs - 24 hr 10/01/22 11:21 10/01/22 14:24 Temperature 97.8 F Pulse Rate 71 67 Respiratory Rate 18 18 Blood Pressure 113/57 L 111/70 Pulse Oximetry 100 100 Oxygen Delivery Method Room Air Room Air BMI result Body Mass Index 21.2 Const General: healthy appearing, comfortable, no acute distress, alert and awake Nutritional Appearance: well nourished Orientation/consciousness: patient oriented x3 HENMT Head: Yes normocephalic and Yes atraumatic Throat: Yes posterior oropharynx normal Eyes Eyelids: Yes eyelids normal Conjunctivae: conjunctivae normal Sclerae: sclerae normal Corneas: corneas normal Pupils: Equal, round and reactive pupils present EOM: EOMs intact bilaterally Neck Neck: Yes full ROM Resp Effort & Inspection: normal respiratory effort, able to speak in complete sentences, no audible wheezes and not labored Auscultation: clear to auscultation bilaterally Cardio Rate: regular rate Rhythm: regular rhythm GI Inspection: No distended Palpation (GI): Soft to palpation, not firm, nontender, no guarding and not rigid Auscultation: normoactive bowel sounds Skin General skin exam: no rashes or lesions noted and elasticity normal Neuro General: patient oriented x3 Cranial nerves: Yes CN's II-XII intact bilaterally, Yes Equal, round and reactive pupils present and Yes Bilaterally intact EOM present Cognition (Neuro): normal cognition Extrem Other: Moving all extremities well without any obvious deformities Course Course Course Narrative: RME- 22-year-old female who is status post cholecystectomy presents for evaluation of abdominal pain, nausea, vomiting. Plan for labs including serum hCG, viral swab. Patient medicated with Zofran 4 mg ODT. Further workup as indicated Medical Decision Making Medical Decision Making [facility] Narrative: Patient has been able to tolerate eating chips while in the waiting room. Her workup was reviewed without any significant lab abnormalities. The patient is . She has artery status post cholecystectomy. Vital signs remained stable. The patient likely has viral etiology or symptoms. Should be discharged with Zofran. At the time of evaluation, the patient then reports that she is supposed to be taking metronidazole for BV is put ?I moved and I did not finish the prescription. Differential Diagnosis Gastroenteritis Gastritis Abdominal pain Vomiting GERD ED Lab Data 10/01/22 11:51 10/01/22 11:51 Labs: Lab Results 10/01/22 10/01/22 10/01/22 Range/Units 11:51 11:51 11:51 WBC 8.0 (4.8-10.8) X10*3/uL RBC 4.28 (4.20-5.50) X10*6/uL Hgb 12.3 (12.0-16.0) g/dl Hct 36.0 L (37.0-47.0) % MCV 84.1 (80.0-98.0) fL MCH 28.7 (27.0-33.0) pg MCHC 34.2 (31.0-35.0) g/dl RDW 12.7 (11.0-16.0) % Plt Count 255 (160-400) X10*3/uL MPV 10.3 (9.4-12.3) fL Immature Gran % (Auto) 0.1 (0.0-0.4) % Neut % (Auto) 42.5 L (45-73) % Lymph % (Auto) 48.6 H (20-40) % [place] % (Auto) 7.6 (2-11) % Eos % (Auto) 0.8 (0-4) % Baso % (Auto) 0.4 (0-2) % Lymph # (Auto) 3.9 (1.2-4.9) X10*3/uL [place] # (Auto) 0.6 (0.1-1.2) X10*3/uL Eos # (Auto) 0.1 (0.0-0.4) X10*3/uL Baso # (Auto) 0.0 (0.0-0.2) X10*3/uL Abs Immat Gran (auto) 0.01 (0.00-0.03) X10*3/uL Absolute Neuts (auto) 3.4 (2.0-8.3) x10*3/uL Absolute Nucleated RBC 0.000 (0.0-0.012) X10*3/uL Nucleated RBC % (auto) 0.0 (0.0-0.2) /100WBC Sodium 141 (135-145) mmol/L Potassium 4.0 (3.3-5.1) mmol/L Chloride 110 H (96-108) mmol/L Carbon Dioxide 23 (22-29) mmol/L Anion Gap 12 (12-20) BUN 11 (9-16) mg/dL Creatinine 0.63 (0.5-1.4) mg/dL Estim Creat Clear Calc 126.0 Estimated GFR > 60 Random Glucose 90 (60-115) mg/dL Calcium 9.5 (8.4-10.2) mg/dL Total Bilirubin 0.3 (0.0-1.0) mg/dL AST 16 (5-31) U/L ALT 14 (0-31) U/L Alkaline Phosphatase 60 (39-117) U/L Total Protein 6.6 (6.5-8.0) g/dL Albumin 4.1 (3.5-5.0) g/dL Lipase 31 (8-78) U/L Beta HCG, Quant < 2 mIU/mL Urine Color Urine Appearance Urine pH (5.0-9.0) Ur Specific [place] (1.005-1.025) Urine Protein (Neg-Trace) mg/dL Urine Glucose (UA) (Negative) mg/dL Urine Ketones (Negative) mg/dL Urine Blood (Negative) Urine Nitrite (Negative) Ur Leukocyte Esterase (Negative) Urine RBC (0-2) /HPF Urine WBC (0-5) /HPF Ur Squamous Epith Cells (0-2) /HPF Urine Bacteria (None Seen) Hyaline Casts (0-2) /LPF Influenza Type A (PCR) NEGATIVE (Negative) Influenza Type B (PCR) NEGATIVE (Negative) RSV RNA Qual (PCR) NEGATIVE (Negative) SARS-CoV-2 RNA (RT-PCR) NEGATIVE (Negative) 10/01/22 Range/Units 11:51 WBC (4.8-10.8) X10*3/uL RBC (4.20-5.50) X10*6/uL Hgb (12.0-16.0) g/dl Hct (37.0-47.0) % MCV (80.0-98.0) fL MCH (27.0-33.0) pg MCHC (31.0-35.0) g/dl RDW (11.0-16.0) % Plt Count (160-400) X10*3/uL MPV (9.4-12.3) fL Immature Gran % (Auto) (0.0-0.4) % Neut % (Auto) (45-73) % Lymph % (Auto) (20-40) % [place] % (Auto) (2-11) % Eos % (Auto) (0-4) % Baso % (Auto) (0-2) % Lymph # (Auto) (1.2-4.9) X10*3/uL [place] # (Auto) (0.1-1.2) X10*3/uL Eos # (Auto) (0.0-0.4) X10*3/uL Baso # (Auto) (0.0-0.2) X10*3/uL Abs Immat Gran (auto) (0.00-0.03) X10*3/uL Absolute Neuts (auto) (2.0-8.3) x10*3/uL Absolute Nucleated RBC (0.0-0.012) X10*3/uL Nucleated RBC % (auto) (0.0-0.2) /100WBC Sodium (135-145) mmol/L Potassium (3.3-5.1) mmol/L Chloride (96-108) mmol/L Carbon Dioxide (22-29) mmol/L Anion Gap (12-20) BUN (9-16) mg/dL Creatinine (0.5-1.4) mg/dL Estim Creat Clear Calc Estimated GFR Random Glucose (60-115) mg/dL Calcium (8.4-10.2) mg/dL Total Bilirubin (0.0-1.0) mg/dL AST (5-31) U/L ALT (0-31) U/L Alkaline Phosphatase (39-117) U/L Total Protein (6.5-8.0) g/dL Albumin (3.5-5.0) g/dL Lipase (8-78) U/L Beta HCG, Quant mIU/mL Urine Color Yellow Urine Appearance Clear Urine pH 7.0 (5.0-9.0) Ur Specific [place] 1.025 (1.005-1.025) Urine Protein Negative (Neg-Trace) mg/dL Urine Glucose (UA) Negative (Negative) mg/dL Urine Ketones Negative (Negative) mg/dL Urine Blood Negative (Negative) Urine Nitrite Negative (Negative) Ur Leukocyte Esterase Negative (Negative) Urine RBC 0-2 (0-2) /HPF Urine WBC 0-5 (0-5) /HPF Ur Squamous Epith Cells 3-5 (0-2) /HPF Urine Bacteria None Seen (None Seen) Hyaline Casts 0-2 (0-2) /LPF Influenza Type A (PCR) (Negative) Influenza Type B (PCR) (Negative) RSV RNA Qual (PCR) (Negative) SARS-CoV-2 RNA (RT-PCR) (Negative) Discharge Plan Discharge Clinical Impression: Nausea Patient Disposition: Home, Self-Care Instructions: Acute Nausea and Vomiting (ED) Additional Instructions: Take the ondansetron up to every 8 hours as needed for nausea and vomiting Drink lots of fluids, small sips at a time Take the metronidazole twice daily for the next 7 days to treat BV Do not mix alcohol with this medication Follow-up with your primary doctor Prescriptions: New ondansetron 4 mg tablet,disintegrating 4 mg PO Q8H PRN (Reason: nausea and vomiting) Qty: 10 0RF metronidazole 500 mg tablet 500 mg PO BID Qty: 14 0RF No Action metronidazole [Flagyl] 500 mg tablet 500 mg PO BID 7 Days Qty: 14 0RF fluconazole [Diflucan] 150 mg tablet 150 mg PO Q3D Qty: 2 0RF Rx Instructions: Take 1 tablet today repeat if symptoms persist in 72 hours. ondansetron HCl [Zofran] 4 mg tablet 4 mg PO Q8H PRN (Reason: nausea and vomiting) Qty: 14 0RF doxycycline monohydrate 100 mg capsule 100 mg PO BID Qty: 14 0RF naproxen 500 mg tablet 500 mg PO BID PRN (Reason: pain) Qty: 20 0RF benzonatate [Tessalon Perles] 100 mg capsule 100 mg PO TID PRN (Reason: cough) Qty: 15 0RF fluconazole [Diflucan] 150 mg tablet 150 mg PO Q3D Qty: 2 0RF Rx Instructions: may repeat second dose 72 hrs after first dose if symptoms persist cephalexin 500 mg capsule 500 mg PO QID Qty: 28 0RF amoxicillin 500 mg tablet 500 mg PO BID Qty: 20 0RF ondansetron 4 mg tablet,disintegrating 4 mg PO Q8H PRN (Reason: nausea and vomiting) Qty: 20 0RF cephalexin 500 mg capsule 500 mg PO BID 7 Days Qty: 14 0RF mupirocin 2 % ointment 1 appl topical BID 7 Days Qty: 15 0RF amoxicillin 500 mg tablet 500 mg PO Q12H Qty: 20 0RF lorazepam [Ativan] 0.5 mg tablet 0.5 mg PO TID PRN (Reason: anxiety) Qty: 10 0RF Rx Instructions: patient may ask for partial fill hydroxyzine HCl 25 mg tablet 25 mg PO BID PRN (Reason: anxiety) Qty: 14 0RF omeprazole 40 mg capsule,delayed release(DR/EC) 40 mg PO DAILY 56 Days Qty: 56 0RF ondansetron 4 mg tablet,disintegrating 4 mg PO Q8H PRN (Reason: nausea and vomiting) Qty: 10 0RF Stand Alone Forms: Work/School Release Interventions: ED Discharge Assessment Last Done: 10/01/22 14:31
[2022-10-01 12:00] LABS: MANUAL DIFF FLAG NO
[2022-10-01 12:03] LABS: Appearance Urine Clear; Color Urine Yellow; Glucose Urine UA Negative (Negative); Leukocyte Esterase Urine Negative (Negative); Nitrite Urine Negative (Negative); Specific Gravity - Urine 1.025 (1.005-1.025); Urine Blood Negative (Negative); Urine Ketones Negative (Negative); Urine Protein Negative (Neg-Trace)
[2022-10-01 12:05] LABS: Bacteria Urine None Seen (None Seen); Hyaline Casts Urine 0-2 /LPF (0-2); RBC Urine 0-2 /HPF (0-2); WBC Urine 0-5 /HPF (0-5)
[2022-10-01 12:07] LABS: Basophils Percent Auto 0.4 % (0-2); Eosinophils Absolute Auto 0.1 X10*3/uL (0.0-0.4); Eosinophils Percent Auto 0.8 % (0-4); Hemoglobin 12.3 g/dl (12.0-16.0); Imm Gran Abs Auto 0.01 X10*3/uL (0.00-0.03); Imm Gran Pct Auto 0.1 % (0.0-0.4); Lymphocytes Absolute Auto 3.9 X10*3/uL (1.2-4.9); Lymphocytes Percent Auto 48.6 % (20-40); Mean Corpuscular HGB Conc 34.2 g/dl (31.0-35.0); Mean Corpuscular Hemoglobin 28.7 pg (27.0-33.0); Mean Corpuscular Volume 84.1 fL (80.0-98.0); Mean Platelet Volume 10.3 fL (9.4-12.3); Monocytes Absolute Auto 0.6 X10*3/uL (0.1-1.2); Monocytes Percent Auto 7.6 % (2-11); Neutrophils Absolute Auto 3.4 x10*3/uL (2.0-8.3); Neutrophils Percent Auto 42.5 % (45-73); Platelet Count 255 X10*3/uL (160-400); Red Blood Count 4.28 X10*6/uL (4.20-5.50); Red Cell Distribution Width 12.7 % (11.0-16.0)
[2022-10-01 12:26] LABS: Alanine Aminotransferase 14 U/L (0-31); Albumin Level 4.1 g/dL (3.5-5.0); Alkaline Phosphatase 60 U/L (39-117); Anion Gap 12 (12-20); Aspartate Amino Transferase 16 U/L (5-31); Bilirubin Total 0.3 mg/dL (0.0-1.0); Blood Urea Nitrogen 11 mg/dL (9-16); Calcium 9.5 mg/dL (8.4-10.2); Carbon Dioxide 23 mmol/L (22-29); Chloride 110 mmol/L (96-108); Estimated Glomerular Filt Rate > 60; Glucose Random 90 mg/dL (60-115); Lipase 31 U/L (8-78); Sodium 141 mmol/L (135-145); Total Protein 6.6 g/dL (6.5-8.0)
[2022-10-01 12:42] LABS: HCG Quantitative < 2 mIU/mL
[2022-10-01 13:10] LABS: Influenza A PCR NEGATIVE (Negative); Influenza B PCR NEGATIVE (Negative); Resp Syncy Virus RNA Qual PCR NEGATIVE (Negative); SARS COV2 PCR INHOUSE NEGATIVE (Negative)
[2022-10-01 14:24] VITALS: BP 111/70; PULSE 67; RESP 18; TEMP 36.6; O2SAT 100
== END 2022-10-01 14:33 | disposition home or self-care (01) ==
PROVIDERS: Physician Assistant; Emergency Provider Emergency Medicine
DX: R11.0 Nausea (principal); Z20.822 Contact with and (suspected) exposure to COVID-19; Z20.828 Contact with and (suspected) exposure to other viral communicable diseases; Z90.49 Acquired absence of other specified parts of digestive tract; Z79.899 Other long term (current) drug therapy
CPT/HCPCS: 0241U; 36415; 80053; 81001; 83690; 84702; 85025; 99282; 99283

== ENCOUNTER 2022-10-11 06:32 | Emergency (ER) | payer OTHER, SELFPAY ==
[2022-10-11 07:03] VITALS: BP 119/71; PULSE 75; RESP 17; TEMP 36.8; O2SAT 98; BMI 21.1
[2022-10-11 07:58] VITALS: BP 112/56; PULSE 59; RESP 18; TEMP 36.9; O2SAT 100
--- NOTE | 2022-10-11 07:59 | ED.FEMALEGU ---
HPI - Female Genitourinary General Chief complaint: Urogenital-Female Stated complaint: ?UTI Time Seen by Provider: 10/11/22 07:59 Source: patient Mode of arrival: ambulatory Limitations: no limitations History of Present Illness HPI Narrative: pt presented c/o dysuria ,she is concern she may have UTI,she is in treatment for BV with flagyl,no fever ,no chills,she has hx of anxiety disorder MD elicited complaint: dysuria Onset (ago): day(s) Severity: mild Female Urogenital Radiation: Non-Radiating Quality of pain: cramping Consistency: constant Vaginal discharge: none Vaginal bleeding: none Urinary symptoms: Dysuria, Urgency and Frequency Exacerbating factors: none Related Data Previous Rx's Medication Instructions Recorded amoxicillin 500 mg tablet 500 mg PO BID #20 tabs 05/15/20 ondansetron 4 mg disintegrating 4 mg PO Q8H PRN nausea and 05/21/20 tablet vomiting #20 tabs fluconazole 150 mg tablet 150 mg PO Q3D 2 doses #2 tabs 08/04/20 (Diflucan) metronidazole 500 mg tablet 500 mg PO BID Bacterial vaginosis 08/04/20 (Flagyl) 7 days #14 tabs cephalexin 500 mg capsule 500 mg PO BID 7 days #14 caps 09/10/20 mupirocin 2 % topical ointment 1 appl topical BID 7 days #15 grams 09/10/20 ondansetron HCl 4 mg tablet 4 mg PO Q8H PRN nausea and 10/06/20 (Zofran) vomiting #14 tabs doxycycline monohydrate 100 mg 100 mg PO BID #14 caps 01/14/21 capsule benzonatate 100 mg capsule 100 mg PO TID PRN cough #15 caps 02/10/21 (Tessalon Perles) naproxen 500 mg tablet 500 mg PO BID PRN pain #20 tabs 02/10/21 cephalexin 500 mg capsule 500 mg PO QID #28 caps 02/25/21 fluconazole 150 mg tablet 150 mg PO Q3D 2 doses #2 tabs 02/25/21 (Diflucan) omeprazole 40 mg capsule,delayed 40 mg PO DAILY 8 weeks #56 caps 08/23/21 release amoxicillin 500 mg tablet 500 mg PO Q12H #20 tabs 10/15/21 ondansetron 4 mg disintegrating 4 mg PO Q8H PRN nausea and 04/11/22 tablet vomiting #10 tabs lorazepam 0.5 mg tablet (Ativan) 0.5 mg PO TID PRN anxiety #10 tabs 09/08/22 hydroxyzine HCl 25 mg tablet 25 mg PO BID PRN anxiety #14 tabs 09/15/22 metronidazole 500 mg tablet 500 mg PO BID #14 tabs 10/01/22 ondansetron 4 mg disintegrating 4 mg PO Q8H PRN nausea and 10/01/22 tablet vomiting #10 tabs phenazopyridine 200 mg tablet 200 mg PO TID 6 doses #6 tabs 10/11/22 (Pyridium) Allergies Allergy/AdvReac Type Severity Reaction Status Date / Time No Known Allergies Allergy Verified 10/15/21 09:42 [No Known Allergies*] Review of Systems Review of Systems: Yes all other systems are reviewed and are negative Cardiovascular: Cardiovascular: Reports no additional cardiovascular complaints Respiratory: Respiratory: Reports no additional respiratory complaints Neurologic: Reports system reviewed and no additional complaints, except as documented [facility] Past Medical History [facility] Narrative: Anxiety Medical History Asthma GERD (gastroesophageal reflux disease) No known health problems Surgical History Hx of cholecystectomy Social History Social History Alcohol intake: never Smoked in Last 30 Days: No Use of substances other than those prescribed or required for medical reasons: No Advance Directives: No Advance Directives Information Provided: No Patient : No Physical Exam Vital Signs: Vital Signs: Last Vital Signs Temp 98.4 F 10/11/22 08:17 Pulse 54 10/11/22 08:17 Resp 18 10/11/22 08:17 BP 120/64 10/11/22 08:17 Pulse Ox 100 10/11/22 08:17 O2 Del Method Room Air 10/11/22 08:17 BMI result Body Mass Index 21.1 Const: General: cooperative Nutritional Appearance: well nourished Orientation/consciousness: patient oriented x3 HEENT: Head: Yes normal to inspection Ears: hearing grossly normal bilaterally General nose exam: Normal external nose present Face and sinus: Yes normal facial exam Mouth: Normal oral and palatal mucosa present Neck: Neck: Yes normal visual inspection Chest: Chest palpation & inspection: normal inspection of the chest Resp: Effort & Inspection: normal respiratory effort Auscultation: clear to auscultation bilaterally Cardio: Palpation: normal PMI Rate: regular rate Rhythm: regular rhythm GI: Inspection: Yes normal to inspection Palpation (GI): Soft to palpation, not firm and nontender Auscultation: normal bowel sounds Skin: General skin exam: no rashes or lesions noted, elasticity normal and turgor normal Lesions: no lesions Rashes: no rashes Neuro: General: patient oriented x3 Cranial nerves: Yes CN's II-XII intact bilaterally Extrem: General: Yes full ROM and Yes capillary refill normal Medical Decision Making Medical Decision Making [facility] Narrative: presented with dysuria ua showe no WBC ,will send culture,I do not think she need AB,I will d/c on pyridium,she will finish the flagyl Differential Diagnosis Differential Diagnoses: The differential diagnosis associated with the presentation includes UTI/STD Lab Data [facility] Lab Attestation statement: I reviewed the patient's lab results. Labs: Lab Results 10/11/22 10/11/22 10/11/22 Range/Units 08:00 08:00 09:22 Urine Color Yellow Urine Appearance Cloudy Urine pH 6.0 (5.0-9.0) Ur Specific Lotus >= 1.030 H (1.005-1.025) Urine Protein Negative (Neg-Trace) mg/dL Urine Glucose (UA) Negative (Negative) mg/dL Urine Ketones Negative (Negative) mg/dL Urine Blood Negative (Negative) Urine Nitrite Negative (Negative) Ur Leukocyte Esterase Moderate (2+) H (Negative) Urine RBC 3-5 H (0-2) /HPF Urine WBC 0-5 (0-5) /HPF Ur Squamous Epith Cells 3-5 (0-2) /HPF Urine Bacteria None Seen (None Seen) Hyaline Casts 0-2 (0-2) /LPF Urine Test NEGATIVE (NEGATIVE) Chlam trachomat DNA PCR NOT DETECTED (Not Detect.) N.gonorrhoeae DNA (PCR) NOT DETECTED (Not Detect.) Discharge Plan Discharge Clinical Impression: Dysuria Patient Disposition: Home, Self-Care Instructions: Dysuria (ED) Additional Instructions: follow up with Primary Care Doctor Thursday,return if worse Prescriptions: New phenazopyridine [Pyridium] 200 mg tablet 200 mg PO TID Qty: 6 0RF No Action metronidazole [Flagyl] 500 mg tablet 500 mg PO BID 7 Days Qty: 14 0RF fluconazole [Diflucan] 150 mg tablet 150 mg PO Q3D Qty: 2 0RF Rx Instructions: Take 1 tablet today repeat if symptoms persist in 72 hours. ondansetron HCl [Zofran] 4 mg tablet 4 mg PO Q8H PRN (Reason: nausea and vomiting) Qty: 14 0RF doxycycline monohydrate 100 mg capsule 100 mg PO BID Qty: 14 0RF naproxen 500 mg tablet 500 mg PO BID PRN (Reason: pain) Qty: 20 0RF benzonatate [Tessalon Perles] 100 mg capsule 100 mg PO TID PRN (Reason: cough) Qty: 15 0RF fluconazole [Diflucan] 150 mg tablet 150 mg PO Q3D Qty: 2 0RF Rx Instructions: may repeat second dose 72 hrs after first dose if symptoms persist cephalexin 500 mg capsule 500 mg PO QID Qty: 28 0RF amoxicillin 500 mg tablet 500 mg PO BID Qty: 20 0RF ondansetron 4 mg tablet,disintegrating 4 mg PO Q8H PRN (Reason: nausea and vomiting) Qty: 20 0RF cephalexin 500 mg capsule 500 mg PO BID 7 Days Qty: 14 0RF mupirocin 2 % ointment 1 appl topical BID 7 Days Qty: 15 0RF amoxicillin 500 mg tablet 500 mg PO Q12H Qty: 20 0RF lorazepam [Ativan] 0.5 mg tablet 0.5 mg PO TID PRN (Reason: anxiety) Qty: 10 0RF Rx Instructions: patient may ask for partial fill hydroxyzine HCl 25 mg tablet 25 mg PO BID PRN (Reason: anxiety) Qty: 14 0RF omeprazole 40 mg capsule,delayed release(DR/EC) 40 mg PO DAILY 56 Days Qty: 56 0RF ondansetron 4 mg tablet,disintegrating 4 mg PO Q8H PRN (Reason: nausea and vomiting) Qty: 10 0RF ondansetron 4 mg tablet,disintegrating 4 mg PO Q8H PRN (Reason: nausea and vomiting) Qty: 10 0RF metronidazole 500 mg tablet 500 mg PO BID Qty: 14 0RF Referrals: Physician,Unknown J [Primary Care Provider] - 2 days Interventions: ED Discharge Assessment Last Done: 10/11/22 09:49 Discharge Date/Time: 10/11/22 09:49
[2022-10-11 08:17] VITALS: BP 120/64; PULSE 54; RESP 18; TEMP 36.9; O2SAT 100
[2022-10-11 08:18] LABS: Appearance Urine Cloudy; Color Urine Yellow; Glucose Urine UA Negative (Negative); Leukocyte Esterase Urine Moderate (2+) (Negative); Nitrite Urine Negative (Negative); Specific Gravity - Urine >= 1.030 (1.005-1.025); UMIC TRIGGER UACC YES; Urine Blood Negative (Negative); Urine Ketones Negative (Negative); Urine Protein Negative (Neg-Trace)
[2022-10-11 08:23] LABS: UPreg QC Valid YES; Urine Pregnancy NEGATIVE (NEGATIVE)
[2022-10-11 08:34] LABS: Bacteria Urine None Seen (None Seen); Hyaline Casts Urine 0-2 /LPF (0-2); WBC Urine 0-5 /HPF (0-5)
[2022-10-11 11:01] LABS: CT PCR NOT DETECTED (Not Detect.); NG PCR NOT DETECTED (Not Detect.)
== END 2022-10-11 09:49 | disposition home or self-care (01) ==
PROVIDERS: Emergency Provider Emergency Medicine
DX: R30.0 Dysuria (principal)
CPT/HCPCS: 0353U; 81001; 81025; 99283; 99284

== ENCOUNTER 2023-02-01 20:15 | Emergency (ER) | payer OTHER, SELFPAY ==
--- NOTE | ~2023-02-01 | CT_ITS ---
EXAMINATION: CT ABDOMEN AND PELVIS WITH CONTRAST CLINICAL INFORMATION: Abdominal pain. COMPARISON: Abdominal ultrasound 04/11/2022. CT abdomen/pelvis 10/15/2021. TECHNIQUE: Multidetector volumetric images were obtained from the superior aspect of the liver through the pubic symphysis following administration 85 mL of Omnipaque 350 intravenous contrast. Sagittal and coronal reformatted images were obtained on the technologist's workstation. Oral contrast: No This CT examination was performed using dose optimization techniques as appropriate, variously including the following: *Automated exposure control *Adjustment of mA and/or kV according to patient size (this includes techniques or standardized protocols for targeted exams where dose is matched to indication/reason for exam; i.e. extremities or head) *Use of iterative reconstruction technique DLP: 360 mGy-cm FINDINGS: LUNG BASES: No focal consolidation or pleural effusion. LIVER, GALLBLADDER, AND BILIARY TREE: The liver is normal in size, shape, and attenuation. No focal hepatic lesion. Cholecystectomy. Increased nonspecific mild intra and extrahepatic biliary ductal dilatation compared to 10/15/2021, common bile duct measures up to 0.8 cm in diameter. No discrete intraluminal calcified choledocholithiasis. PANCREAS: Unremarkable. SPLEEN: Unremarkable. ADRENAL GLANDS: Unremarkable. KIDNEYS AND URETERS: The kidneys are normal in size, shape, and attenuation. No hydronephrosis, hydroureter, or calculi seen. No perinephric stranding. BLADDER: Decompressed limiting its evaluation. GASTROINTESTINAL TRACT: Nonspecific gastric distention, likely related with postprandial state. The small bowel is nondilated. Normal appendix. Fluid filled distended loops of small bowel in the lower abdomen axial image 59 series 3 are nonspecific but could be seen with gastroenteritis and diarrhea. Minimal diffuse haziness of the mesenteric fat,, fairly indeterminate could be reactive changes in the setting of gastroenteritis. Mild colonic diverticulosis. No significant pericolonic fat stranding. No evidence of bowel obstruction. ABDOMINAL WALL: No significant hernia is appreciated. LYMPH NODES: Limited evaluation due to paucity of abdominal fat, no bulky lymphadenopathy. VASCULAR: Unremarkable. PELVIC VISCERA: 2 cm dominant follicle versus corpus luteal cyst in the right ovary, for which no imaging follow-up is indicated. Trace amount of free fluid is likely physiologic. OSSEOUS STRUCTURES: No acute or aggressive appearing osseous findings. CT/CT abdomen pelvis w IV con IMPRESSION: 1. Fluid-filled distended loops of small bowel in the lower abdomen with mild diffuse mesenteric haziness suggesting gastroenteritis and diarrhea. No evidence of bowel obstruction. 2. Increased nonspecific mild intra and extrahepatic biliary ductal dilatation compared to 10/15/2021, common bile duct measures up to 0.8 cm in diameter. No discrete intraluminal calcified choledocholithiasis. Recommend correlation with liver function tests, bilirubin levels and if indicated further evaluation with MRCP.
[2023-02-01 20:17] VITALS: BP 116/76; PULSE 74; RESP 18; TEMP 36.6; O2SAT 95; BMI 22.1
--- NOTE | 2023-02-01 20:17 | ED.ABDPAIN ---
HPI - Abdominal Pain General Chief Complaint: Nausea/Vomiting/Diarrhea Stated Complaint: vomiting unable to keep food down Time Seen by Provider: 02/01/23 20:40 Source: patient Mode of arrival: ambulatory Limitations: no limitations History of Present Illness HPI narrative: Patient is a 22 year old assigned female at with a history of asthma and GERD presenting to the emergency department today with upper abdominal pain, vomiting, and diarrhea. Patient states that starting earlier today she began to have upper abdominal pain, nausea, vomiting, and diarrhea. Patient denies any dizziness, lightheadedness, fever, chills, blurry vision, double vision, loss of vision, chest pain, difficulty breathing, shortness of breath, back pain, night sweats, pain with urination, increased urinary frequency, increased urinary urgency, blood in her urine or stool, syncope or a near syncopal episode, recent trauma or falls, bowel incontinence, bladder incontinence, bowel retention, bladder retention, or any other complaints at this time. MD elicited complaint: abdominal pain Onset (ago): hour(s) Pain Consistency: intermittent Location: epigastric Severity: mild Exacerbating factors: vomiting Relieving factors: nothing Associated symptoms: nausea and vomiting Related Data Date of Last Menstrual Period: 01/04/23 Previous Rx's Medication Instructions Recorded amoxicillin 500 mg tablet 500 mg PO BID #20 tabs 05/15/20 ondansetron 4 mg disintegrating 4 mg PO Q8H PRN nausea and 05/21/20 tablet vomiting #20 tabs fluconazole 150 mg tablet 150 mg PO Q3D 2 doses #2 tabs 08/04/20 (Diflucan) metronidazole 500 mg tablet 500 mg PO BID Bacterial vaginosis 08/04/20 (Flagyl) 7 days #14 tabs cephalexin 500 mg capsule 500 mg PO BID 7 days #14 caps 09/10/20 mupirocin 2 % topical ointment 1 appl topical BID 7 days #15 grams 09/10/20 ondansetron HCl 4 mg tablet 4 mg PO Q8H PRN nausea and 10/06/20 (Zofran) vomiting #14 tabs doxycycline monohydrate 100 mg 100 mg PO BID #14 caps 01/14/21 capsule benzonatate 100 mg capsule 100 mg PO TID PRN cough #15 caps 02/10/21 (Tessalon Tyson) naproxen 500 mg tablet 500 mg PO BID PRN pain #20 tabs 08/01/21 cephalexin 500 mg capsule 500 mg PO QID #28 caps 02/25/21 fluconazole 150 mg tablet 150 mg PO Q3D 2 doses #2 tabs 02/25/21 (Diflucan) omeprazole 40 mg capsule,delayed 40 mg PO DAILY 8 weeks #56 caps 08/23/21 release amoxicillin 500 mg tablet 500 mg PO Q12H #20 tabs 10/15/21 ondansetron 4 mg disintegrating 4 mg PO Q8H PRN nausea and 04/11/22 tablet vomiting #10 tabs lorazepam 0.5 mg tablet (Ativan) 0.5 mg PO TID PRN anxiety #10 tabs 09/08/22 hydroxyzine HCl 25 mg tablet 25 mg PO BID PRN anxiety #14 tabs 09/15/22 metronidazole 500 mg tablet 500 mg PO BID #14 tabs 10/01/22 ondansetron 4 mg disintegrating 4 mg PO Q8H PRN nausea and 10/01/22 tablet vomiting #10 tabs phenazopyridine 200 mg tablet 200 mg PO TID 6 doses #6 tabs 10/11/22 (Pyridium) ondansetron 4 mg disintegrating 4 mg PO Q8H 3 days #9 tabs 02/02/23 tablet Allergies Allergy/AdvReac Type Severity Reaction Status Date / Time No Known Allergies Allergy Verified 10/15/21 09:42 [No Known Allergies*] Review of Systems Constitutional: Reports no additional constitutional complaints, Denies chills, Denies fever(s) and Denies night sweats Eyes: Reports no additional eye complaints, Denies blurry vision, Denies change in vision, Denies diplopia, Denies eye discharge, Denies loss of vision and Denies eye pain Denies dizziness Cardiovascular: Reports no additional cardiovascular complaints, Denies chest pain, Denies lightheadedness, Denies Loss of Consciousness and Denies dyspnea Respiratory: Reports no additional respiratory complaints and Denies dyspnea Gastrointestinal: Reports no additional gastrointestinal complaints, Reports abdominal pain, Denies melena, Denies hematochezia, Denies change in bowel habits, Denies change in stool character, Reports diarrhea, Reports nausea and Reports vomiting Genitourinary: Denies hematuria, Denies urinary frequency, Denies dysuria, Denies urinary incontinence, Denies urinary hesitancy and Denies urinary urgency Musculoskeletal: Reports no additional musculoskeletal complaints, Denies numbness and Denies tingling Denies dizziness, Denies loss of vision, Denies numbness and Denies tingling Psychiatric: Reports no additional psychiatric complaints Endocrine: Reports no additional endocrine complaints Hematologic/Lymphatic: Reports no additional hematologic/lymphatic complaints Allergic/Immunologic: Reports no additional allergic/immunologic complaints [facility] Past Medical History Attestation statement: The following information was validated with the patient. Source: old records reviewed and nursing notes reviewed Medical History Asthma GERD (gastroesophageal reflux disease) No known health problems Surgical History Hx of cholecystectomy Date of Last Menstrual Period: 01/04/23 Social History Social History Alcohol intake: never Advance Directives: No Advance Directives Information Provided: Yes Physical Exam ED Vital Signs: Vital Signs - 24 hr 02/01/23 20:17 02/01/23 20:23 02/01/23 21:55 Temperature 97.9 F 98.0 F Pulse Rate 74 79 48 L Respiratory Rate 18 18 16 Blood Pressure 116/76 135/78 119/72 Pulse Oximetry 95 98 98 Oxygen Delivery Method Room Air Room Air Room Air 02/02/23 00:47 Temperature 98.2 F Pulse Rate 56 Respiratory Rate 16 Blood Pressure 107/70 Pulse Oximetry 96 Oxygen Delivery Method Room Air BMI result Body Mass Index 22.1 Const General: cooperative, no acute distress, alert and awake Nutritional Appearance: well nourished Orientation/consciousness: patient oriented x3 Limitations: no limitations [facility] Head: Yes normal to inspection and Yes atraumatic Ears: hearing grossly normal bilaterally and external ears normal General nose exam: Normal external nose present, no nasal discharge noted and no epistaxis Face and sinus: Yes normal facial exam, No abrasion and No laceration Mouth: Normal oral and palatal mucosa present, no drooling and no muffled voice Eyes General: appearance normal, both eyes and all related structures Periorbital: periorbital findings normal Eyelids: Yes eyelids normal Conjunctivae: conjunctivae normal Pupils: Equal, round and reactive pupils present EOM: EOMs intact bilaterally Neck Neck: Yes normal visual inspection, Yes full ROM and Yes no lymphadenopathy Chest Chest palpation & inspection: normal inspection of the chest Resp Effort & Inspection: normal respiratory effort and able to speak in complete sentences Auscultation: clear to auscultation bilaterally Cardio Rate: regular rate Rhythm: regular rhythm Heart sounds: S1 normal heart sound present and S2 normal heart sound present GI Inspection: Yes normal to inspection Palpation (GI): Soft to palpation, not firm, nontender and no guarding Neuro General: patient oriented x3 and moves all extremities Cranial nerves: Yes Equal, round and reactive pupils present Cognition (Neuro): normal cognition Motor exam (neuro): 5/5 motor strength present throughout Sensory Exam: Normal double simultaneous stimulation for sensation Coordination: [id number] test normal Extrem General: Yes normal to inspection, Yes full ROM and Yes capillary refill normal Psych Appearance: grossly normal Mental Status: mental status grossly normal Affect: normal affect Attitude: cooperative Thought process: Normal thought process present Thought content: Normal thought content present Insight: Good insight present (Psych) Course Course Course Narrative: This is an RME: Additional HPI, ROS, PE not included below will be deferred to primary provider. Patient is a 22-year-old female presents emergency department for evaluation of epigastric pain, nausea, bilious vomiting, diarrhea and p.o. intolerance since 04:00. Drank alcohol last night, reportedly not a lot . States this happens all the time with alcohol and certain foods that she eats. Plan: Labs, urinalysis, hCG Medical Decision Making Medical Decision Making MDM Narrative: Patient is a 22 year old assigned female at with a history of asthma and GERD presenting to the emergency department today with epigastric pain. Patient's physical exam was unremarkable. Patient's blood work was unremarkable. Patient's urine showed no acute process. Patient's EKG was unremarkable. Patient's abdomen/pelvis CT showed evidence of gastroenteritis. I explained my physical exam findings as well as all test results to the patient. I answered all questions asked by the patient. Patient received Maalox, Reglan, Morphine, Omeprazole, capsaicin cream, and IV fluids which she stated helped her symptoms significantly. I stressed the importance of the patient taking her medication as prescribed. I stressed the importance of the patient following up with her primary care provider. I stressed the importance of the patient returning to the emergency department immediately if her symptoms were to worsen or if she were to develop any dizziness, shortness of breath, difficulty breathing, chest pain, blurry vision, loss of vision, nausea, vomiting, abdominal pain, fever, chills, back pain, or any other complaints. Patient verbalized agreement and understanding with this treatment plan and discharge. Differential Diagnosis Differential Diagnoses: The differential diagnosis associated with the presentation includes Gastroenteritis Nausea Vomiting Diarrhea Viral illness Canabanoid hyperemesis syndrome Admission/Observation Consideration of admission/observation: Escalation of care including admission/observation considered Patient would have been admitted to the hospital had his work up had any findings where hospital admission was appropriate and his clinical presentation warranted hospital admission. Lab Data MDM Lab Attestation statement: I reviewed the patient's lab results. My interpretation of these studies and their corresponding values is that they are grossly normal. 02/01/23 20:33 02/01/23 20:33 Labs: Lab Results 02/01/23 02/01/23 02/01/23 Range/Units 20:33 20:33 21:57 WBC 10.1 (4.8-10.8) X10*3/uL RBC 4.47 (4.20-5.50) X10*6/uL Hgb 13.1 (12.0-16.0) g/dl Hct 37.3 (37.0-47.0) % MCV 83.4 (80.0-98.0) fL MCH 29.3 (27.0-33.0) pg MCHC 35.1 H (31.0-35.0) g/dl RDW 12.4 (11.0-16.0) % Plt Count 277 (160-400) X10*3/uL MPV 10.6 (9.4-12.3) fL Immature Gran % (Auto) 0.2 (0.0-0.4) % Neut % (Auto) 61.4 (45-73) % Lymph % (Auto) 32.1 (20-40) % [place] % (Auto) 5.9 (2-11) % Eos % (Auto) 0.1 (0-4) % Baso % (Auto) 0.3 (0-2) % Lymph # (Auto) 3.3 (1.2-4.9) X10*3/uL [place] # (Auto) 0.6 (0.1-1.2) X10*3/uL Eos # (Auto) 0.0 (0.0-0.4) X10*3/uL Baso # (Auto) 0.0 (0.0-0.2) X10*3/uL Abs Immat Gran (auto) 0.02 (0.00-0.03) X10*3/uL Absolute Neuts (auto) 6.2 (2.0-8.3) x10*3/uL Absolute Nucleated RBC 0.000 (0.0-0.012) X10*3/uL Nucleated RBC % (auto) 0.0 (0.0-0.2) /100WBC Sodium 142 (135-145) mmol/L Potassium 3.8 (3.3-5.1) mmol/L Chloride 108 (96-108) mmol/L Carbon Dioxide 23 (22-29) mmol/L Anion Gap 15 (12-20) BUN 10 (9-16) mg/dL Creatinine 0.73 (0.5-1.4) mg/dL Estim Creat Clear Calc 108.7 Estimated GFR > 60 Random Glucose 104 (60-115) mg/dL Calcium 9.8 (8.4-10.2) mg/dL Total Bilirubin 0.9 (0.0-1.0) mg/dL AST 21 (5-31) U/L ALT 16 (0-31) U/L Alkaline Phosphatase 60 (39-117) U/L Total Protein 8.1 H (6.5-8.0) g/dL Albumin 4.9 (3.5-5.0) g/dL Lipase 20 (8-78) U/L Urine Color Yellow Urine Appearance Cloudy Urine pH 5.5 (5.0-9.0) Ur Specific [place] >= 1.030 H (1.005-1.025) Urine Protein 30 (1+) H (Neg-Trace) mg/dL Urine Glucose (UA) Negative (Negative) mg/dL Urine Ketones 15 (Negative) mg/dL Urine Blood Negative (Negative) Urine Nitrite Negative (Negative) Ur Leukocyte Esterase Negative (Negative) Urine RBC 0-2 (0-2) /HPF Urine WBC 0-5 (0-5) /HPF Ur Squamous Epith Cells 3-5 (0-2) /HPF Urine Bacteria Trace (None Seen) Hyaline Casts 0-2 (0-2) /LPF Urine Test (NEGATIVE) 02/01/23 Range/Units 21:57 WBC (4.8-10.8) X10*3/uL RBC (4.20-5.50) X10*6/uL Hgb (12.0-16.0) g/dl Hct (37.0-47.0) % MCV (80.0-98.0) fL MCH (27.0-33.0) pg MCHC (31.0-35.0) g/dl RDW (11.0-16.0) % Plt Count (160-400) X10*3/uL MPV (9.4-12.3) fL Immature Gran % (Auto) (0.0-0.4) % Neut % (Auto) (45-73) % Lymph % (Auto) (20-40) % [place] % (Auto) (2-11) % Eos % (Auto) (0-4) % Baso % (Auto) (0-2) % Lymph # (Auto) (1.2-4.9) X10*3/uL [place] # (Auto) (0.1-1.2) X10*3/uL Eos # (Auto) (0.0-0.4) X10*3/uL Baso # (Auto) (0.0-0.2) X10*3/uL Abs Immat Gran (auto) (0.00-0.03) X10*3/uL Absolute Neuts (auto) (2.0-8.3) x10*3/uL Absolute Nucleated RBC (0.0-0.012) X10*3/uL Nucleated RBC % (auto) (0.0-0.2) /100WBC Sodium (135-145) mmol/L Potassium (3.3-5.1) mmol/L Chloride (96-108) mmol/L Carbon Dioxide (22-29) mmol/L Anion Gap (12-20) BUN (9-16) mg/dL Creatinine (0.5-1.4) mg/dL Estim Creat Clear Calc Estimated GFR Random Glucose (60-115) mg/dL Calcium (8.4-10.2) mg/dL Total Bilirubin (0.0-1.0) mg/dL AST (5-31) U/L ALT (0-31) U/L Alkaline Phosphatase (39-117) U/L Total Protein (6.5-8.0) g/dL Albumin (3.5-5.0) g/dL Lipase (8-78) U/L Urine Color Urine Appearance Urine pH (5.0-9.0) Ur Specific [place] (1.005-1.025) Urine Protein (Neg-Trace) mg/dL Urine Glucose (UA) (Negative) mg/dL Urine Ketones (Negative) mg/dL Urine Blood (Negative) Urine Nitrite (Negative) Ur Leukocyte Esterase (Negative) Urine RBC (0-2) /HPF Urine WBC (0-5) /HPF Ur Squamous Epith Cells (0-2) /HPF Urine Bacteria (None Seen) Hyaline Casts (0-2) /LPF Urine Test NEGATIVE (NEGATIVE) Independent Interpretation I performed an independent interpretation of an: EKG and CT Scan Interpretation: My interpretation is in agreement with the radiologist's impression of this imaging study. EXAMINATION: CT ABDOMEN AND PELVIS WITH CONTRAST? CLINICAL INFORMATION: Abdominal pain.? COMPARISON: Abdominal ultrasound 04/11/2022. CT abdomen/pelvis 10/15/2021. TECHNIQUE: Multidetector volumetric images were obtained from the superior aspect of the liver through the pubic symphysis following administration 85 mL of Omnipaque 350 intravenous contrast. Sagittal and coronal reformatted images were obtained on the technologist's workstation.? Oral contrast: No This CT examination was performed using dose optimization techniques as appropriate, variously including the following: *Automated exposure control *Adjustment of mA and/or kV according to patient size (this includes techniques or standardized protocols for targeted exams where dose is matched to indication/reason for exam; i.e. extremities or head) *Use of iterative reconstruction technique DLP: 360 mGy-cm FINDINGS: LUNG BASES: No focal consolidation or pleural effusion.? LIVER, GALLBLADDER, AND BILIARY TREE: The liver is normal in size, shape, and attenuation. No focal hepatic lesion. Cholecystectomy. Increased nonspecific mild intra and extrahepatic biliary ductal dilatation compared to 10/15/2021, common bile duct measures up to 0.8 cm in diameter. No discrete intraluminal calcified choledocholithiasis. ? PANCREAS: Unremarkable.? SPLEEN: Unremarkable.? ADRENAL GLANDS: Unremarkable.? KIDNEYS AND URETERS: The kidneys are normal in size, shape, and attenuation. No hydronephrosis, hydroureter, or calculi seen. No perinephric stranding. ? BLADDER: Decompressed limiting its evaluation.? GASTROINTESTINAL TRACT: Nonspecific gastric distention, likely related with postprandial state. The small bowel is nondilated. Normal appendix. Fluid filled distended loops of small bowel in the lower abdomen axial image 59 series 3 are nonspecific but could be seen with gastroenteritis and diarrhea. Minimal diffuse haziness of the mesenteric fat,, fairly indeterminate could be reactive changes in the setting of gastroenteritis. Mild colonic diverticulosis. No significant pericolonic fat stranding. No evidence of bowel obstruction.? ABDOMINAL WALL: No significant hernia is appreciated.? LYMPH NODES: Limited evaluation due to paucity of abdominal fat, no bulky lymphadenopathy. VASCULAR: Unremarkable. PELVIC VISCERA: 2 cm dominant follicle versus corpus luteal cyst in the right ovary, for which no imaging follow-up is indicated. Trace amount of free fluid is likely physiologic.? OSSEOUS STRUCTURES: No acute or aggressive appearing osseous findings. CT/CT abdomen pelvis w IV con IMPRESSION: 1.? Fluid-filled distended loops of small bowel in the lower abdomen with mild diffuse mesenteric haziness suggesting gastroenteritis and diarrhea. No evidence of bowel obstruction. 2.? Increased nonspecific mild intra and extrahepatic biliary ductal dilatation compared to 10/15/2021, common bile duct measures up to 0.8 cm in diameter. No discrete intraluminal calcified choledocholithiasis. Recommend correlation with liver function tests, bilirubin levels and if indicated further evaluation with MRCP. Dictated By: Tara Anderson Signed By: Electronically signed by Tara?Justin 02/02/23 0008 Vent. Rate: 056 BPM ? ? Atrial Rate: 056 BPM P-R Int: 134 ms? QRS Dur: 086 ms QT Int: 494 ms ? ? ? P-R-T Axes: 067 086 065 degrees QTc Int: 476 ms ? Sinus bradycardia with Blocked Premature atrial complexes T wave abnormality, consider anterior ischemia Abnormal ECG When compared with ECG of 10-FEB-2021 14:56, Premature atrial complexes are now Present QT has lengthened DD/ 2211 Radiology Impression Discussion of test interpretation with radiology: I have reviewed the radiologist's reading. Medications Administered Discontinued Medications Generic Name Dose Route Start Last Admin Trade Name Freq PRN Reason Stop Dose Admin Al Hydroxide/Mg Hydroxide 15 ml 02/01/23 21:17 02/01/23 21:27 Magnesium Hydrox/Alum Hydrox 30 Ml Oral.Susp PO 02/01/23 21:18 15 ml ONCE ONE Administration Capsaicin 1 appl 02/01/23 22:00 02/01/23 22:26 Capsaicin 0.025% Cream 60 Gm Tube TOPICAL 1 appl QID PRN Administration epigastric area Protocol Sodium Chloride 1,000 mls @ 999 mls/hr 02/01/23 20:45 02/01/23 22:00 Ns IV 02/01/23 21:45 Infused .Q1H1M SELENA Infusion Iohexol 85 ml 02/01/23 23:32 02/01/23 23:32 Iohexol 350 Mg/Ml 100 Ml Infus..Btl IV 02/01/23 23:33 85 ml ONCE ONE Administration Metoclopramide HCl 10 mg 02/01/23 22:00 02/01/23 22:07 Metoclopramide Hcl 10 Mg/2 Ml Vial IVPUSH 02/01/23 22:01 10 mg ONCE ONE Administration Morphine Sulfate 4 mg 02/01/23 22:43 02/01/23 22:46 Morphine Sulfate 4 Mg/Ml Cartridge IVPUSH 02/01/23 22:44 4 mg ONCE ONE Administration Protocol Ondansetron HCl 4 mg 02/01/23 20:37 02/01/23 20:51 Ondansetron Hcl 4 Mg/2 Ml Vial IVPUSH 02/01/23 20:38 4 mg ONCE ONE Administration Ondansetron HCl 4 mg 02/02/23 01:11 02/02/23 01:20 Ondansetron Hcl 4 Mg/2 Ml Vial IVPUSH 02/02/23 01:12 4 mg ONCE ONE Administration Pantoprazole Sodium 40 mg 02/01/23 21:17 02/01/23 21:27 Pantoprazole Sodium 40 Mg/10 Ml Vial IVPUSH 02/01/23 21:18 40 mg ONCE ONE Administration Discharge Plan Discharge Clinical Impression: Gastroenteritis Patient Disposition: Home, Self-Care Instructions: Gastroenteritis (DC) Additional Instructions: Follow up with your primary care provider. Return to the emergency department immediately if your symptoms worsen or if you develop any dizziness, shortness of breath, difficulty breathing, chest pain, blurry vision, loss of vision, nausea, vomiting, abdominal pain, fever, chills, back pain, or any other complaints. Prescriptions: New ondansetron 4 mg tablet,disintegrating 4 mg PO Q8H 3 Days Qty: 9 0RF No Action metronidazole [Flagyl] 500 mg tablet 500 mg PO BID 7 Days Qty: 14 0RF fluconazole [Diflucan] 150 mg tablet 150 mg PO Q3D Qty: 2 0RF Rx Instructions: Take 1 tablet today repeat if symptoms persist in 72 hours. ondansetron HCl [Zofran] 4 mg tablet 4 mg PO Q8H PRN (Reason: nausea and vomiting) Qty: 14 0RF doxycycline monohydrate 100 mg capsule 100 mg PO BID Qty: 14 0RF naproxen 500 mg tablet 500 mg PO BID PRN (Reason: pain) Qty: 20 0RF benzonatate [Tessalon Perles] 100 mg capsule 100 mg PO TID PRN (Reason: cough) Qty: 15 0RF fluconazole [Diflucan] 150 mg tablet 150 mg PO Q3D Qty: 2 0RF Rx Instructions: may repeat second dose 72 hrs after first dose if symptoms persist cephalexin 500 mg capsule 500 mg PO QID Qty: 28 0RF amoxicillin 500 mg tablet 500 mg PO BID Qty: 20 0RF ondansetron 4 mg tablet,disintegrating 4 mg PO Q8H PRN (Reason: nausea and vomiting) Qty: 20 0RF cephalexin 500 mg capsule 500 mg PO BID 7 Days Qty: 14 0RF mupirocin 2 % ointment 1 appl topical BID 7 Days Qty: 15 0RF amoxicillin 500 mg tablet 500 mg PO Q12H Qty: 20 0RF lorazepam [Ativan] 0.5 mg tablet 0.5 mg PO TID PRN (Reason: anxiety) Qty: 10 0RF Rx Instructions: patient may ask for partial fill hydroxyzine HCl 25 mg tablet 25 mg PO BID PRN (Reason: anxiety) Qty: 14 0RF omeprazole 40 mg capsule,delayed release(DR/EC) 40 mg PO DAILY 56 Days Qty: 56 0RF ondansetron 4 mg tablet,disintegrating 4 mg PO Q8H PRN (Reason: nausea and vomiting) Qty: 10 0RF ondansetron 4 mg tablet,disintegrating 4 mg PO Q8H PRN (Reason: nausea and vomiting) Qty: 10 0RF metronidazole 500 mg tablet 500 mg PO BID Qty: 14 0RF phenazopyridine [Pyridium] 200 mg tablet 200 mg PO TID Qty: 6 0RF Referrals: [facility] [place] [Provider Group] (Call to establish and follow up with a primary care provider. If you already have a primary care provider, please follow up with them.) [facility] [place] [facility] [[facility]] (Call to establish and follow up with a primary care provider. If you already have a primary care provider, please follow up with them.) [facility] [place] [facility] [Provider Group] (Call to establish and follow up with a primary care provider. If you already have a primary care provider, please follow up with them.) Interventions: ED Discharge Assessment Last Done: 02/02/23 01:30 Discharge Date/Time: 02/02/23 01:31 Print Language: Kinyarwanda
[2023-02-01 20:23] VITALS: BP 135/78; PULSE 79; RESP 18; TEMP 36.7; O2SAT 98
[2023-02-01 20:37] LABS: MANUAL DIFF FLAG NO
[2023-02-01 20:38] LABS: Basophils Percent Auto 0.3 % (0-2); Eosinophils Percent Auto 0.1 % (0-4); Hematocrit 37.3 % (37.0-47.0); Hemoglobin 13.1 g/dl (12.0-16.0); Imm Gran Abs Auto 0.02 X10*3/uL (0.00-0.03); Imm Gran Pct Auto 0.2 % (0.0-0.4); Lymphocytes Absolute Auto 3.3 X10*3/uL (1.2-4.9); Lymphocytes Percent Auto 32.1 % (20-40); Mean Corpuscular HGB Conc 35.1 g/dl (31.0-35.0); Mean Corpuscular Hemoglobin 29.3 pg (27.0-33.0); Mean Corpuscular Volume 83.4 fL (80.0-98.0); Mean Platelet Volume 10.6 fL (9.4-12.3); Monocytes Absolute Auto 0.6 X10*3/uL (0.1-1.2); Monocytes Percent Auto 5.9 % (2-11); Neutrophils Absolute Auto 6.2 x10*3/uL (2.0-8.3); Neutrophils Percent Auto 61.4 % (45-73); Platelet Count 277 X10*3/uL (160-400); Red Blood Count 4.47 X10*6/uL (4.20-5.50); Red Cell Distribution Width 12.4 % (11.0-16.0); White Blood Count 10.1 X10*3/uL (4.8-10.8)
[2023-02-01] MEDS: 0.9 % Sodium Chloride 1,000 ML 999 ML IV (20:51)
[2023-02-01] MEDS: ondansetron HCL 4 MG/2 ML VIAL IVPUSH (20:51)
[2023-02-01 20:53] LABS: Alanine Aminotransferase 16 U/L (0-31); Albumin Level 4.9 g/dL (3.5-5.0); Alkaline Phosphatase 60 U/L (39-117); Anion Gap 15 (12-20); Aspartate Amino Transferase 21 U/L (5-31); Bilirubin Total 0.9 mg/dL (0.0-1.0); Blood Urea Nitrogen 10 mg/dL (9-16); Calcium 9.8 mg/dL (8.4-10.2); Carbon Dioxide 23 mmol/L (22-29); Chloride 108 mmol/L (96-108); Creatinine Clr Calc Pharmacy 108.7; Estimated Glomerular Filt Rate > 60; Glucose Random 104 mg/dL (60-115); Lipase 20 U/L (8-78); Potassium 3.8 mmol/L (3.3-5.1); Sodium 142 mmol/L (135-145); Total Protein 8.1 g/dL (6.5-8.0)
[2023-02-01] MEDS: Magnesium Hydrox/Alum Hydrox 30 ML ORAL.SUSP 15 ML PO (21:27)
[2023-02-01] MEDS: Pantoprazole Sodium 40 MG/10 ML VIAL IVPUSH (21:27)
[2023-02-01 21:55] VITALS: BP 119/72; PULSE 48; RESP 16; O2SAT 98
--- NOTE | 2023-02-01 21:59 | ECG_ITS ---
Test Reason : EPIGASTRIC PAIN Blood Pressure : / mmHG Vent. Rate : 056 BPM Atrial Rate : 056 BPM P-R Int : 134 ms QRS Dur : 086 ms QT Int : 494 ms P-R-T Axes : 067 086 065 degrees QTc Int : 476 ms Sinus bradycardia with Sinus Arrhythmia T wave abnormality, consider anterior ischemia Abnormal ECG When compared with ECG of 10-FEB-2021 14:56, T wave inversion now evident in V3 Referred By: Fely Hoffmann Electronically Signed By:ANN MARIE WOODARD MD
[2023-02-01] MEDS: Metoclopramide HCl 10 MG/2 ML VIAL IVPUSH (22:07)
[2023-02-01 22:16] LABS: UPreg QC Valid YES; Urine Pregnancy NEGATIVE (NEGATIVE)
[2023-02-01 22:17] LABS: Appearance Urine Cloudy; Color Urine Yellow; Glucose Urine UA Negative (Negative); Leukocyte Esterase Urine Negative (Negative); Nitrite Urine Negative (Negative); PH 5.5 (5.0-9.0); Specific Gravity - Urine >= 1.030 (1.005-1.025); UMIC TRIGGER UACC YES; Urine Blood Negative (Negative); Urine Ketones 15 mg/dL (Negative); Urine Protein 30 (1+) mg/dL (Neg-Trace)
[2023-02-01 22:22] LABS: Bacteria Urine Trace (None Seen); Hyaline Casts Urine 0-2 /LPF (0-2); RBC Urine 0-2 /HPF (0-2); WBC Urine 0-5 /HPF (0-5)
[2023-02-01] MEDS: Capsaicin 0.025% Cream 60 GM TUBE 1 APPL TOPICAL (22:26)
[2023-02-01] MEDS: Morphine Sulfate 4 MG/ML CARTRIDGE IVPUSH (22:46)
--- NOTE | 2023-02-01 23:08 | PC.NURSE ---
Patient in CT
[2023-02-01] MEDS: iohexoL 350 MG/ML 100 ML INFUS..BTL 85 ML IV (23:32)
[2023-02-02 00:47] VITALS: BP 107/70; PULSE 56; RESP 16; TEMP 36.8; O2SAT 96
[2023-02-02] MEDS: ondansetron HCL 4 MG/2 ML VIAL IVPUSH (01:20)
== END 2023-02-02 01:31 | disposition home or self-care (01) ==
PROVIDERS: Nurse Practitioner Family; Emergency Provider Emergency Medicine
DX: K52.9 Noninfective gastroenteritis and colitis, unspecified (principal); R11.2 Nausea with vomiting, unspecified; Z79.899 Other long term (current) drug therapy
CPT/HCPCS: 36415; 74177; 80053; 81001; 81025; 83690; 85025; 93005; 96361; 96374; 96375; 96376; 99284; 99285; J2270; J2405; J2765; Q9967

== ENCOUNTER → 2023-02-01 21:59 | Outpatient (BNV) | payer OTHER, SELFPAY | PROVIDERS: Emergency Provider Emergency Medicine; Visit Provider Internal Medicine Cardiovascular Disease | DX: R10.13 Epigastric pain (principal) | CPT/HCPCS: 93010 ==

== ENCOUNTER 2023-05-03 12:13 | Emergency (ER) | payer OTHER, SELFPAY ==
--- NOTE | 2023-05-03 12:17 | ED.GENADULT ---
HPI - General Adult General Chief complaint: Abdominal Pain Stated complaint: Acid reflux/vomiting Related Data Previous Rx's Medication Instructions Recorded amoxicillin 500 mg tablet 500 mg PO BID #20 tabs 05/15/20 ondansetron 4 mg disintegrating 4 mg PO Q8H PRN nausea and 05/21/20 tablet vomiting #20 tabs fluconazole 150 mg tablet 150 mg PO Q3D 2 doses #2 tabs 08/04/20 (Diflucan) metronidazole 500 mg tablet 500 mg PO BID Bacterial vaginosis 08/04/20 (Flagyl) 7 days #14 tabs cephalexin 500 mg capsule 500 mg PO BID 7 days #14 caps 09/10/20 mupirocin 2 % topical ointment 1 appl topical BID 7 days #15 grams 09/10/20 ondansetron HCl 4 mg tablet 4 mg PO Q8H PRN nausea and 10/06/20 (Zofran) vomiting #14 tabs doxycycline monohydrate 100 mg 100 mg PO BID #14 caps 01/14/21 capsule benzonatate 100 mg capsule 100 mg PO TID PRN cough #15 caps 02/10/21 (Tessulaiman Mehta) naproxen 500 mg tablet 500 mg PO BID PRN pain #20 tabs 02/10/21 cephalexin 500 mg capsule 500 mg PO QID #28 caps 02/25/21 fluconazole 150 mg tablet 150 mg PO Q3D 2 doses #2 tabs 02/25/21 (Diflucan) omeprazole 40 mg capsule,delayed 40 mg PO DAILY 8 weeks #56 caps 08/23/21 release amoxicillin 500 mg tablet 500 mg PO Q12H #20 tabs 10/15/21 ondansetron 4 mg disintegrating 4 mg PO Q8H PRN nausea and 04/11/22 tablet vomiting #10 tabs lorazepam 0.5 mg tablet (Ativan) 0.5 mg PO TID PRN anxiety #10 tabs 09/08/22 hydroxyzine HCl 25 mg tablet 25 mg PO BID PRN anxiety #14 tabs 09/15/22 metronidazole 500 mg tablet 500 mg PO BID #14 tabs 10/01/22 ondansetron 4 mg disintegrating 4 mg PO Q8H PRN nausea and 10/01/22 tablet vomiting #10 tabs phenazopyridine 200 mg tablet 200 mg PO TID 6 doses #6 tabs 10/11/22 (Pyridium) ondansetron 4 mg disintegrating 4 mg PO Q8H 3 days #9 tabs 02/02/23 tablet Allergies Allergy/AdvReac Type Severity Reaction Status Date / Time No Known Allergies Allergy Verified 05/03/23 12:21 [No Known Allergies*] [facility] Past Medical History Medical History Asthma GERD (gastroesophageal reflux disease) No known health problems Surgical History Hx of cholecystectomy Social History Social History Alcohol intake: never Advance Directives: No Advance Directives Information Provided: No Physical Exam ED Vital Signs: Vital Signs - 24 hr 05/03/23 12:18 Temperature 98.7 F Pulse Rate 88 Respiratory Rate 20 Blood Pressure 125/87 Pulse Oximetry 100 Oxygen Delivery Method Room Air BMI result Body Mass Index 20.2 Course Course Course Narrative: This is a rapid medical exam: Additional HPI, ROS, PE not included below will be deferred to primary provider. Patient is a 22-year-old female with history of GERD, cholecystectomy presenting to the emergency department with complaint of upper abdominal pain, nausea, and vomiting. Reports history of gastritis which is exacerbated by drinking alcohol. States she was drinking alcohol last night. Today has had bright red blood in emesis. Took zofran at home without relief. Complains of feeling lightheaded. Also took Pepto this morning. Denies fevers or diarrhea. Denies chest pain or shortness of breath. Denies any blood in stool or dark, tarry stool. Plan: EKG, labs, UA Medical Decision Making Lab Data 05/03/23 12:46 05/03/23 12:46 Labs: Lab Results 05/03/23 Range/Units 12:46 WBC 9.3 (4.8-10.8) X10*3/uL RBC 4.55 (4.20-5.50) X10*6/uL Hgb 13.3 (12.0-16.0) g/dl Hct 38.4 (37.0-47.0) % MCV 84.4 (80.0-98.0) fL MCH 29.2 (27.0-33.0) pg MCHC 34.6 (31.0-35.0) g/dl RDW 12.8 (11.0-16.0) % Plt Count 270 (160-400) X10*3/uL MPV 10.2 (9.4-12.3) fL Immature Gran % (Auto) 0.2 (0.0-0.4) % Neut % (Auto) 71.4 (45-73) % Lymph % (Auto) 23.8 (20-40) % [place] % (Auto) 4.2 (2-11) % Eos % (Auto) 0.1 (0-4) % Baso % (Auto) 0.3 (0-2) % Lymph # (Auto) 2.2 (1.2-4.9) X10*3/uL [place] # (Auto) 0.4 (0.1-1.2) X10*3/uL Eos # (Auto) 0.0 (0.0-0.4) X10*3/uL Baso # (Auto) 0.0 (0.0-0.2) X10*3/uL Abs Immat Gran (auto) 0.02 (0.00-0.03) X10*3/uL Absolute Neuts (auto) 6.7 (2.0-8.3) x10*3/uL Absolute Nucleated RBC 0.000 (0.0-0.012) X10*3/uL Nucleated RBC % (auto) 0.0 (0.0-0.2) /100WBC Sodium 144 (135-145) mmol/L Potassium 3.5 (3.3-5.1) mmol/L Chloride 108 (96-108) mmol/L Carbon Dioxide 23 (22-29) mmol/L Anion Gap 17 (12-20) BUN 8 L (9-16) mg/dL Creatinine 0.73 (0.5-1.4) mg/dL Estim Creat Clear Calc 105.3 Estimated GFR > 60 Random Glucose 114 (60-115) mg/dL Calcium 9.7 (8.4-10.2) mg/dL Total Bilirubin 0.4 (0.0-1.0) mg/dL AST 24 (5-31) U/L ALT 24 (0-31) U/L Alkaline Phosphatase 58 (39-117) U/L Troponin I High Sens < 2.7 (<3.5-17.0) ng/L Total Protein 8.0 (6.5-8.0) g/dL Albumin 4.7 (3.5-5.0) g/dL Lipase 20 (8-78) U/L Beta HCG, Quant < 2 mIU/mL COVID-19 (BRIAN) Negative (Negative) COVID-19 Clin Com See Note Influenza Type A (MAY) Negative (Negative) Influenza Type B (MAY) Negative (Negative) Influenza A & B Note See Note Discharge Plan Discharge Clinical Impression: Nausea & vomiting Patient Disposition: Left W/O Completing Treatment Prescriptions: No Action metronidazole [Flagyl] 500 mg tablet 500 mg PO BID 7 Days Qty: 14 0RF fluconazole [Diflucan] 150 mg tablet 150 mg PO Q3D Qty: 2 0RF Rx Instructions: Take 1 tablet today repeat if symptoms persist in 72 hours. ondansetron HCl [Zofran] 4 mg tablet 4 mg PO Q8H PRN (Reason: nausea and vomiting) Qty: 14 0RF doxycycline monohydrate 100 mg capsule 100 mg PO BID Qty: 14 0RF naproxen 500 mg tablet 500 mg PO BID PRN (Reason: pain) Qty: 20 0RF benzonatate [Tessalon Perles] 100 mg capsule 100 mg PO TID PRN (Reason: cough) Qty: 15 0RF fluconazole [Diflucan] 150 mg tablet 150 mg PO Q3D Qty: 2 0RF Rx Instructions: may repeat second dose 72 hrs after first dose if symptoms persist cephalexin 500 mg capsule 500 mg PO QID Qty: 28 0RF amoxicillin 500 mg tablet 500 mg PO BID Qty: 20 0RF ondansetron 4 mg tablet,disintegrating 4 mg PO Q8H PRN (Reason: nausea and vomiting) Qty: 20 0RF cephalexin 500 mg capsule 500 mg PO BID 7 Days Qty: 14 0RF mupirocin 2 % ointment 1 appl topical BID 7 Days Qty: 15 0RF amoxicillin 500 mg tablet 500 mg PO Q12H Qty: 20 0RF lorazepam [Ativan] 0.5 mg tablet 0.5 mg PO TID PRN (Reason: anxiety) Qty: 10 0RF Rx Instructions: patient may ask for partial fill hydroxyzine HCl 25 mg tablet 25 mg PO BID PRN (Reason: anxiety) Qty: 14 0RF omeprazole 40 mg capsule,delayed release(DR/EC) 40 mg PO DAILY 56 Days Qty: 56 0RF ondansetron 4 mg tablet,disintegrating 4 mg PO Q8H PRN (Reason: nausea and vomiting) Qty: 10 0RF ondansetron 4 mg tablet,disintegrating 4 mg PO Q8H PRN (Reason: nausea and vomiting) Qty: 10 0RF metronidazole 500 mg tablet 500 mg PO BID Qty: 14 0RF ondansetron 4 mg tablet,disintegrating 4 mg PO Q8H 3 Days Qty: 9 0RF phenazopyridine [Pyridium] 200 mg tablet 200 mg PO TID Qty: 6 0RF Discharge Date/Time: 05/03/23 15:45
[2023-05-03 12:18] VITALS: BP 125/87; PULSE 88; RESP 20; TEMP 37.1; O2SAT 100; BMI 20.2
--- NOTE | 2023-05-03 12:21 | ECG_ITS ---
Test Reason : chest pain Blood Pressure : / mmHG Vent. Rate : 076 BPM Atrial Rate : 076 BPM P-R Int : 130 ms QRS Dur : 088 ms QT Int : 400 ms P-R-T Axes : 053 087 066 degrees QTc Int : 450 ms Sinus rhythm with marked sinus arrhythmia Otherwise normal ECG When compared with ECG of 01-FEB-2023 22:11, T wave inversion no longer evident in Anterior leads Referred By: Jennifer Peters Electronically Signed By:ORIN CORLEY MD
[2023-05-03 12:52] LABS: MANUAL DIFF FLAG NO
[2023-05-03 12:55] LABS: Basophils Percent Auto 0.3 % (0-2); Eosinophils Percent Auto 0.1 % (0-4); Hematocrit 38.4 % (37.0-47.0); Hemoglobin 13.3 g/dl (12.0-16.0); Imm Gran Abs Auto 0.02 X10*3/uL (0.00-0.03); Imm Gran Pct Auto 0.2 % (0.0-0.4); Lymphocytes Absolute Auto 2.2 X10*3/uL (1.2-4.9); Lymphocytes Percent Auto 23.8 % (20-40); Mean Corpuscular HGB Conc 34.6 g/dl (31.0-35.0); Mean Corpuscular Hemoglobin 29.2 pg (27.0-33.0); Mean Corpuscular Volume 84.4 fL (80.0-98.0); Mean Platelet Volume 10.2 fL (9.4-12.3); Monocytes Absolute Auto 0.4 X10*3/uL (0.1-1.2); Monocytes Percent Auto 4.2 % (2-11); Neutrophils Absolute Auto 6.7 x10*3/uL (2.0-8.3); Neutrophils Percent Auto 71.4 % (45-73); Platelet Count 270 X10*3/uL (160-400); Red Blood Count 4.55 X10*6/uL (4.20-5.50); Red Cell Distribution Width 12.8 % (11.0-16.0); White Blood Count 9.3 X10*3/uL (4.8-10.8)
[2023-05-03 13:16] LABS: COVID-19 Test Negative (Negative); IDNOW Serial# 6674DD1D
[2023-05-03 13:17] LABS: Alanine Aminotransferase 24 U/L (0-31); Albumin Level 4.7 g/dL (3.5-5.0); Alkaline Phosphatase 58 U/L (39-117); Anion Gap 17 (12-20); Aspartate Amino Transferase 24 U/L (5-31); Bilirubin Total 0.4 mg/dL (0.0-1.0); Blood Urea Nitrogen 8 mg/dL (9-16); Calcium 9.7 mg/dL (8.4-10.2); Carbon Dioxide 23 mmol/L (22-29); Chloride 108 mmol/L (96-108); Creatinine Clr Calc Pharmacy 105.3; Estimated Glomerular Filt Rate > 60; Glucose Random 114 mg/dL (60-115); Lipase 20 U/L (8-78); Potassium 3.5 mmol/L (3.3-5.1); Sodium 144 mmol/L (135-145)
[2023-05-03 13:22] LABS: HCG Quantitative < 2 mIU/mL; Troponin-I High Sensitivity < 2.7 ng/L (<3.5-17.0)
[2023-05-03 13:34] LABS: IDNOW Serial# BCCEAD1C; Influenza A Negative (Negative); Influenza B2 Negative (Negative)
== END 2023-05-03 15:45 | disposition left against medical advice (07) ==
LOC: HO.ED 15:40
PROVIDERS: Registered Nurse Emergency; Emergency Provider Emergency Medicine
DX: R07.89 Other chest pain (principal); R11.2 Nausea with vomiting, unspecified; Z11.52 Encounter for screening for COVID-19; Z20.822 Contact with and (suspected) exposure to COVID-19; Z79.899 Other long term (current) drug therapy
CPT/HCPCS: 36415; 80053; 83690; 84484; 84702; 85025; 87502; 87635; 93005; 99283

== ENCOUNTER 2023-08-30 17:49 | Emergency (ER) | payer OTHER, SELFPAY ==
--- NOTE | 2023-08-30 17:57 | ED.NAVMDI ---
HPI - Nausea/Vomiting/Diarrhea General Chief complaint: Nausea/Vomiting/Diarrhea Stated complaint: vomiting acid all day, passing out Time Seen by Provider: 08/30/23 18:34 Source: patient, RN notes reviewed and old records reviewed Mode of arrival: ambulatory Limitations: no limitations History of Present Illness HPI Narrative: 23-year-old female with past medical history significant for GERD, status post cholecystectomy presents for evaluation of abdominal pain and vomiting. Patient reports that vomiting since early this morning with upper abdominal pain She describes the vomiting is bilious and nonbloody. The patient states that this happens frequently after she goes out drinking the night before. Patient reports that she knows she has not supposed take about drinking but continues to do so Denies any fevers or chills Associated nausea: Yes Related Data Previous Rx's Medication Instructions Recorded amoxicillin 500 mg tablet 500 mg PO BID #20 tabs 05/15/20 ondansetron 4 mg disintegrating 4 mg PO Q8H PRN nausea and 05/21/20 tablet vomiting #20 tabs fluconazole 150 mg tablet 150 mg PO Q3D 2 doses #2 tabs 08/04/20 (Diflucan) metronidazole 500 mg tablet 500 mg PO BID Bacterial vaginosis 08/04/20 (Flagyl) 7 days #14 tabs cephalexin 500 mg capsule 500 mg PO BID 7 days #14 caps 09/10/20 mupirocin 2 % topical ointment 1 appl topical BID 7 days #15 grams 09/10/20 ondansetron HCl 4 mg tablet 4 mg PO Q8H PRN nausea and 10/06/20 (Zofran) vomiting #14 tabs doxycycline monohydrate 100 mg 100 mg PO BID #14 caps 01/14/21 capsule benzonatate 100 mg capsule 100 mg PO TID PRN cough #15 caps 02/10/21 (Tessalon Perles) naproxen 500 mg tablet 500 mg PO BID PRN pain #20 tabs 02/10/21 cephalexin 500 mg capsule 500 mg PO QID #28 caps 02/25/21 fluconazole 150 mg tablet 150 mg PO Q3D 2 doses #2 tabs 02/25/21 (Diflucan) omeprazole 40 mg capsule,delayed 40 mg PO DAILY 8 weeks #56 caps 08/23/21 release amoxicillin 500 mg tablet 500 mg PO Q12H #20 tabs 04/05/22 ondansetron 4 mg disintegrating 4 mg PO Q8H PRN nausea and 04/11/22 tablet vomiting #10 tabs lorazepam 0.5 mg tablet (Ativan) 0.5 mg PO TID PRN anxiety #10 tabs 09/08/22 hydroxyzine HCl 25 mg tablet 25 mg PO BID PRN anxiety #14 tabs 09/15/22 metronidazole 500 mg tablet 500 mg PO BID #14 tabs 10/01/22 ondansetron 4 mg disintegrating 4 mg PO Q8H PRN nausea and 10/01/22 tablet vomiting #10 tabs phenazopyridine 200 mg tablet 200 mg PO TID 6 doses #6 tabs 10/11/22 (Pyridium) ondansetron 4 mg disintegrating 4 mg PO Q8H 3 days #9 tabs 02/02/23 tablet Allergies Allergy/AdvReac Type Severity Reaction Status Date / Time No Known Allergies Allergy Verified 08/30/23 17:52 [No Known Allergies*] Review of Systems Constitutional: Constitutional: Denies body ache(s), Denies chills, Denies fever(s), Reports malaise and Reports weakness Eyes: Eyes: Denies blurry vision Cardiovascular: Cardiovascular: Denies chest pain and Denies dyspnea Respiratory: Respiratory: Denies cough and Denies dyspnea Gastrointestinal: Gastrointestinal: Reports abdominal pain, Reports nausea and Reports vomiting Musculoskeletal: Musculoskeletal: Denies back pain Integumentary/Breasts: Skin/Breast: Denies rash Neurologic: Reports weakness PMFSH Past Medical History Medical History Asthma GERD (gastroesophageal reflux disease) No known health problems Surgical History Hx of cholecystectomy Social History Social History Alcohol intake: never Smoked in Last 30 Days: No Use of substances other than those prescribed or required for medical reasons: Yes Substance Use Type: Marijuana Advance Directives: No Advance Directives Information Provided: No Patient : No Physical Exam Vital Signs: Vital Signs: Last Vital Signs Temp 98.3 F 08/30/23 21:15 Pulse 60 08/30/23 21:15 Resp 20 08/30/23 21:15 BP 108/53 L 08/30/23 21:15 Pulse Ox 99 08/30/23 21:15 O2 Del Method Room Air 08/30/23 21:15 BMI result Body Mass Index 0.2 Const: General: healthy appearing, comfortable, no acute distress, alert and awake Nutritional Appearance: well nourished Orientation/consciousness: patient oriented x3 HEENT: Head: Yes normocephalic and Yes atraumatic Eyes: Eyelids: Yes eyelids normal Conjunctivae: conjunctivae normal Sclerae: sclerae normal Corneas: corneas normal Pupils: Equal, round and reactive pupils present EOM: EOMs intact bilaterally Resp: Effort & Inspection: normal respiratory effort, able to speak in complete sentences and not labored Cardio: Rate: regular rate Rhythm: regular rhythm GI: Inspection: No distended Palpation (GI): Soft to palpation, not firm, Tenderness to palpation present (GI) in the epigastrum and in the LUQ, no guarding and not rigid Skin: General skin exam: elasticity normal Neuro: General: patient oriented x3 Cranial nerves: Yes Equal, round and reactive pupils present and Yes Bilaterally intact EOM present Cognition (Neuro): normal cognition Course Course Course Narrative: RME: 23 yo female, hx of asthma and GERD,?here for eval of nausea and vomiting since this morning. has not been able to keep food or drink down. endorses daily marijuana use. felt better with a cold shower. takes famotidine daily for gerd. states that her gerd acts up when she drinks etoh and endorses consuming etoh last night. no sick contacts. labs ordered. zofran given. Full HPI, ROS and PE to be performed by the primary ED provider. Reevaluation(s) Reevaluation #1: Patient reports feeling much better after GI cocktail, she will be discharged to follow up with her PCP. She will be given a GI referral as Time: 21:48 Medications Administered Discontinued Medications Generic Name Dose Route Start Last Admin Trade Name Freq PRN Reason Stop Dose Admin Al Hydroxide/Mg Hydroxide 30 ml 08/30/23 20:40 08/30/23 20:48 Magnesium Hydrox/Alum Hydrox 30 Ml Oral.Susp PO 08/30/23 20:41 30 ml ONCE ONE Administration Sodium Chloride 1,000 mls @ 999 mls/hr 08/30/23 19:00 08/30/23 20:42 Ns IV 08/30/23 20:00 Infused .Q1H1M SELENA Infusion Ketorolac Tromethamine 15 mg 08/30/23 19:01 08/30/23 19:26 Ketorolac Tromethamine 15 Mg/Ml Vial IVPUSH 08/30/23 19:02 15 mg ONCE ONE Administration Lidocaine HCl 15 ml 08/30/23 20:40 08/30/23 20:48 Lidocaine Hcl Viscous 2 % 15 Ml Solution MUCOUS MEM 08/30/23 20:41 15 ml ONCE ONE Administration Ondansetron HCl 4 mg 08/30/23 17:56 08/30/23 18:02 Ondansetron Odt 4 Mg Tab.Rapdis TRANSLINGU 08/30/23 17:57 Not Given ONCE ONE Ondansetron HCl 4 mg 08/30/23 19:00 08/30/23 19:26 Ondansetron Hcl 4 Mg/2 Ml Vial IVPUSH 08/30/23 19:01 4 mg ONCE ONE Administration Pantoprazole Sodium 40 mg 08/30/23 19:00 08/30/23 19:26 Pantoprazole Sodium 40 Mg/10 Ml Vial IVPUSH 08/30/23 19:01 40 mg ONCE ONE Administration Medical Decision Making Medical Decision Making [facility] Narrative: 23 old female presents for evaluation abdominal pain, vomiting after drinking alcohol. She is already status post cholecystectomy. Her H&H are normal, less likely bleeding ulcer. Will treat the patient's symptoms with IV fluids, Zofran, Protonix. 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 I do not see any indication for emergent imaging at this time Differential Diagnosis Differential Diagnoses: The differential diagnosis associated with the presentation includes Alcoholic gastritis Peptic ulcer disease Gastroenteritis Abdominal pain Pancreatitis Fatty liver Lab Data [facility] Lab Attestation statement: I reviewed the patient's lab results. Slight leukocytosis to 13.2 K. No significant anemia. Normal platelet count. Patient's chloride is just above normal at 109, no other electrolyte abnormalities. LFTs within normal limits, normal lipase level. 08/30/23 18:06 08/30/23 18:07 Labs: Lab Results 08/30/23 08/30/23 Range/Units 18:06 18:07 WBC 13.2 H (4.8-10.8) X10*3/uL RBC 4.51 (4.20-5.50) X10*6/uL Hgb 13.4 (12.0-16.0) g/dl Hct 38.2 (37.0-47.0) % MCV 84.7 (80.0-98.0) fL MCH 29.7 (27.0-33.0) pg MCHC 35.1 H (31.0-35.0) g/dl RDW 12.7 (11.0-16.0) % Plt Count 284 (160-400) X10*3/uL MPV 10.1 (9.4-12.3) fL Immature Gran % (Auto) 0.4 (0.0-0.4) % Neut % (Auto) 77.9 H (45-73) % Lymph % (Auto) 17.5 L (20-40) % [place] % (Auto) 3.6 (2-11) % Eos % (Auto) 0.2 (0-4) % Baso % (Auto) 0.4 (0-2) % Lymph # (Auto) 2.3 (1.2-4.9) X10*3/uL [place] # (Auto) 0.5 (0.1-1.2) X10*3/uL Eos # (Auto) 0.0 (0.0-0.4) X10*3/uL Baso # (Auto) 0.1 (0.0-0.2) X10*3/uL Abs Immat Gran (auto) 0.05 H (0.00-0.03) X10*3/uL Absolute Neuts (auto) 10.3 H (2.0-8.3) x10*3/uL Absolute Nucleated RBC 0.000 (0.0-0.012) X10*3/uL Nucleated RBC % (auto) 0.0 (0.0-0.2) /100WBC Sodium 144 (135-145) mmol/L Potassium 3.8 (3.3-5.1) mmol/L Chloride 109 H (96-108) mmol/L Carbon Dioxide 25 (22-29) mmol/L Anion Gap 14 (12-20) BUN 11 (9-16) mg/dL Creatinine 0.71 (0.5-1.4) mg/dL Estim Creat Clear Calc 106.2 Estimated GFR > 60 Random Glucose 93 (60-115) mg/dL Calcium 9.4 (8.4-10.2) mg/dL Magnesium 1.9 (1.6-2.6) mg/dL Total Bilirubin 0.4 (0.0-1.0) mg/dL AST 18 (5-31) U/L ALT 14 (0-31) U/L Alkaline Phosphatase 75 (39-117) U/L Total Protein 8.0 (6.5-8.0) g/dL Albumin 4.8 (3.5-5.0) g/dL Lipase 21 (8-78) U/L Influenza Type A (PCR) NEGATIVE (Negative) Influenza Type B (PCR) NEGATIVE (Negative) RSV RNA Qual (PCR) NEGATIVE (Negative) SARS-CoV-2 RNA (RT-PCR) NEGATIVE (Negative) Discharge Plan Discharge Clinical Impression: Abdominal pain Patient Disposition: Home, Self-Care Instructions: Abdominal Pain (ED) Additional Instructions: Your workup in the ER today was reassuring. I recommend avoiding excessive alcohol consumption. Drink lots of fluids, follow your primary doctor. You may also follow-up with GI, Dr. Frye at the number provided Prescriptions: No Action metronidazole [Flagyl] 500 mg tablet 500 mg PO BID 7 Days Qty: 14 0RF fluconazole [Diflucan] 150 mg tablet 150 mg PO Q3D Qty: 2 0RF Rx Instructions: Take 1 tablet today repeat if symptoms persist in 72 hours. ondansetron HCl [Zofran] 4 mg tablet 4 mg PO Q8H PRN (Reason: nausea and vomiting) Qty: 14 0RF doxycycline monohydrate 100 mg capsule 100 mg PO BID Qty: 14 0RF naproxen 500 mg tablet 500 mg PO BID PRN (Reason: pain) Qty: 20 0RF benzonatate [Tessalon Perles] 100 mg capsule 100 mg PO TID PRN (Reason: cough) Qty: 15 0RF fluconazole [Diflucan] 150 mg tablet 150 mg PO Q3D Qty: 2 0RF Rx Instructions: may repeat second dose 72 hrs after first dose if symptoms persist cephalexin 500 mg capsule 500 mg PO QID Qty: 28 0RF amoxicillin 500 mg tablet 500 mg PO BID Qty: 20 0RF ondansetron 4 mg tablet,disintegrating 4 mg PO Q8H PRN (Reason: nausea and vomiting) Qty: 20 0RF cephalexin 500 mg capsule 500 mg PO BID 7 Days Qty: 14 0RF mupirocin 2 % ointment 1 appl topical BID 7 Days Qty: 15 0RF amoxicillin 500 mg tablet 500 mg PO Q12H Qty: 20 0RF lorazepam [Ativan] 0.5 mg tablet 0.5 mg PO TID PRN (Reason: anxiety) Qty: 10 0RF Rx Instructions: patient may ask for partial fill hydroxyzine HCl 25 mg tablet 25 mg PO BID PRN (Reason: anxiety) Qty: 14 0RF omeprazole 40 mg capsule,delayed release(DR/EC) 40 mg PO DAILY 56 Days Qty: 56 0RF ondansetron 4 mg tablet,disintegrating 4 mg PO Q8H PRN (Reason: nausea and vomiting) Qty: 10 0RF ondansetron 4 mg tablet,disintegrating 4 mg PO Q8H PRN (Reason: nausea and vomiting) Qty: 10 0RF metronidazole 500 mg tablet 500 mg PO BID Qty: 14 0RF ondansetron 4 mg tablet,disintegrating 4 mg PO Q8H 3 Days Qty: 9 0RF phenazopyridine [Pyridium] 200 mg tablet 200 mg PO TID Qty: 6 0RF Referrals: Desean Frye MD [Physician] - (peptic ulcer disease)
[2023-08-30 17:59] VITALS: BP 118/72; PULSE 68; RESP 16; TEMP 36.4; O2SAT 98; BMI 21.3
--- NOTE | 2023-08-30 18:02 | PC.NURSE ---
Refused Zofran as unable to keep anything down and wants it through IV, provider aware
[2023-08-30 18:12] LABS: MANUAL DIFF FLAG NO
[2023-08-30 18:16] LABS: Basophils Absolute Auto 0.1 X10*3/uL (0.0-0.2); Basophils Percent Auto 0.4 % (0-2); Eosinophils Percent Auto 0.2 % (0-4); Hematocrit 38.2 % (37.0-47.0); Hemoglobin 13.4 g/dl (12.0-16.0); Imm Gran Abs Auto 0.05 X10*3/uL (0.00-0.03); Imm Gran Pct Auto 0.4 % (0.0-0.4); Lymphocytes Absolute Auto 2.3 X10*3/uL (1.2-4.9); Lymphocytes Percent Auto 17.5 % (20-40); Mean Corpuscular HGB Conc 35.1 g/dl (31.0-35.0); Mean Corpuscular Hemoglobin 29.7 pg (27.0-33.0); Mean Corpuscular Volume 84.7 fL (80.0-98.0); Mean Platelet Volume 10.1 fL (9.4-12.3); Monocytes Absolute Auto 0.5 X10*3/uL (0.1-1.2); Monocytes Percent Auto 3.6 % (2-11); Neutrophils Absolute Auto 10.3 x10*3/uL (2.0-8.3); Neutrophils Percent Auto 77.9 % (45-73); Platelet Count 284 X10*3/uL (160-400); Red Blood Count 4.51 X10*6/uL (4.20-5.50); Red Cell Distribution Width 12.7 % (11.0-16.0); White Blood Count 13.2 X10*3/uL (4.8-10.8)
[2023-08-30 18:43] LABS: Alanine Aminotransferase 14 U/L (0-31); Albumin Level 4.8 g/dL (3.5-5.0); Alkaline Phosphatase 75 U/L (39-117); Anion Gap 14 (12-20); Aspartate Amino Transferase 18 U/L (5-31); Bilirubin Total 0.4 mg/dL (0.0-1.0); Blood Urea Nitrogen 11 mg/dL (9-16); Calcium 9.4 mg/dL (8.4-10.2); Carbon Dioxide 25 mmol/L (22-29); Chloride 109 mmol/L (96-108); Creatinine Clr Calc Pharmacy 106.2; Estimated Glomerular Filt Rate > 60; Glucose Random 93 mg/dL (60-115); Lipase 21 U/L (8-78); Magnesium 1.9 mg/dL (1.6-2.6); Potassium 3.8 mmol/L (3.3-5.1); Sodium 144 mmol/L (135-145)
[2023-08-30 19:03] LABS: Influenza A PCR NEGATIVE (Negative); Influenza B PCR NEGATIVE (Negative); Resp Syncy Virus RNA Qual PCR NEGATIVE (Negative); SARS COV2 PCR INHOUSE NEGATIVE (Negative)
[2023-08-30] MEDS: Pantoprazole Sodium 40 MG/10 ML VIAL IVPUSH (19:26)
[2023-08-30] MEDS: ondansetron HCL 4 MG/2 ML VIAL IVPUSH (19:26)
[2023-08-30] MEDS: Ketorolac Tromethamine 15 MG/ML VIAL IVPUSH (19:26)
[2023-08-30] MEDS: 0.9 % Sodium Chloride 1,000 ML 999 ML IV (19:26)
--- NOTE | 2023-08-30 20:00 | PC.NURSE ---
this rn assumed care of pt @ 1914. pt presents from waiting room. iv placed in L AC 20g pt tolerated well. pt medicated according to sep.
--- NOTE | 2023-08-30 20:42 | PC.NURSE ---
IVF infused pt reports continued abd discomfort, denies nausea/vomiting. pt requested ice. this rn made NAA aware of pt statements awaiting new orders at this time
[2023-08-30] MEDS: Lidocaine HCl Viscous 2 % 15 ML SOLUTION MUCOUS MEM (20:48)
[2023-08-30] MEDS: Magnesium Hydrox/Alum Hydrox 30 ML ORAL.SUSP PO (20:48)
[2023-08-30 21:15] VITALS: BP 108/53; PULSE 60; RESP 20; TEMP 36.8; O2SAT 99
--- NOTE | 2023-08-30 22:07 | PC.NURSE ---
pt calm and cooperative. pt states feeling better at discharge. iv removed. pt ambulatory at discharge. pt provided with discharge packet. pt verbalized understanding of discharge plan
== END 2023-08-30 22:23 | disposition home or self-care (01) ==
PROVIDERS: Physician Assistant Medical; Emergency Provider Student in an Organized Health Care Education/Training Program
DX: R10.10 Upper abdominal pain, unspecified (principal); R11.10 Vomiting, unspecified; Z11.52 Encounter for screening for COVID-19; Z20.828 Contact with and (suspected) exposure to other viral communicable diseases
CPT/HCPCS: 0241U; 36415; 80053; 83690; 83735; 85025; 96361; 96374; 96375; 99284; C9113; J1885; J2405